=== PATIENT | male | born 1950 | race Caucasian/White ===

== ENCOUNTER → 2018-03-19 11:00 | Outpatient (CLI) | payer BC, MEDICARE, SELFPAY | PROVIDERS: Visit Provider Internal Medicine | DX: G47.33 Obstructive sleep apnea (adult) (pediatric) (principal) | CPT/HCPCS: 95806 ==

== ENCOUNTER 2018-11-20 10:51 | Inpatient (IN) ==
[2018-11-20 11:04] LABS: Basophils % 0.7 % (0.1-2.0); Eosinophils # 0.2 K/mm3 (0.0-0.4); Eosinophils % 3.1 % (0.1-12.0); Hematocrit 46.3 % (42.0-52.0); Hemoglobin 15.2 g/dL (14.1-18.0); Lymphocytes # 1.3 K/mm3 (0.7-4.5); Lymphocytes % 21.8 % (10-50); Mean Corpuscular HGB Conc 32.9 g/dL (31.8-35.4); Mean Corpuscular Hemoglobin 30.9 pg (27.0-31.2); Mean Platelet Volume 7.5 fl (7.4-10.4); Monocytes # 0.3 K/mm3 (0.1-1.0); Monocytes % 5.1 % (1.7-9.3); Neutrophils # 4.2 K/mm3 (1.8-7.8); Neutrophils % 69.3 % (37.0-80.0); Platelet Count 188 K/mm3 (142-424); Red Blood Count 4.93 M/mm3 (4.60-6.20)
--- NOTE | 2018-11-20 11:05 | Emergency Department Note ---
ED Disposition Clinical Impression: Unstable angina, CAD (coronary artery disease), STEMI (ST elevation myocardial infarction) Disposition: Still a Patient Condition on Discharge: Fair Referrals: Provider,Referral, [Primary Care Provider] - - Critical Care Critical Care Time: No Attestation: On , the high probability of a clinically significant, sudden or life threatening deterioration of the following system(s) required my full and direct attention, intervention and personal management. The time I documented below is in addition to time spent performing reported procedures but includes the f ollowing listed in this critical care notation. Medical Decision Making - Freddie Inquiry Pt receiving controlled substance: No Freddie was queried for this patient: No Vital Signs: 11/20/18 10:55 Temperature 98.3 F Temperature Source Oral Pulse Rate [Left Radial] 80 Respiratory Rate 19 Blood Pressure [Right Arm] 177/95 H Blood Pressure Mean [Right Arm] 122 Blood Pressure Source [Right Arm] Automatic Cuff Blood Pressure Position [Right Arm] Sitting 02 Sat by Pulse Oximetry 96 Oxygen Delivery Method Room Air - Lab Data Lab Results 11/20/18 10:55: WBC 6.0, RBC 4.93, Hgb 15.2, Hct 46.3, MCV 94.0, MCH 30.9, MCHC 32.9, RDW 14.0, Plt Count 188, MPV 7.5, Neut % (Auto) 69.3, Lymph % (Auto) 21.8, [place] % (Auto) 5.1, Eos % (Auto) 3.1, Baso % (Auto) 0.7, Neut # (Auto) 4.2, Lymph # (Auto) 1.3, [place] # (Auto) 0.3, Eos # (Auto) 0.2, Baso # (Auto) 0.0 11/20/18 10:55: Sodium 141, Potassium 4.1, Chloride 103, Carbon Dioxide 30, Anion Gap 12.1, BUN 12, Creatinine 0.90, Estimated Creat Clear 101, Estimated GFR 83, Est GFR ( Amer) 101, Glucose 166 H, Calcium 8.8, Troponin I 0.27 H 11/20/18 10:55: D-Dimer 120 11/20/18 10:55: B-Natriuretic Peptide 109 H Result diagrams: 11/20/18 10:55 11/20/18 10:55 Orders (Tests/Meds): ED MEDICATIONS Generic Name Dose Route Start Last Admin Trade Name Fawad PRN Reason Stop Dose Admin Nitroglycerin 0.4 mg 11/20/18 10:53 11/20/18 11:16 Nitrostat 0.4mg Sl Tablet SL 11/21/18 10:53 1 dose Q5MINP PRN Administration Chest Pain Discontinued Medications Generic Name Dose Route Start Last Admin Trade Name Fawad PRN Reason Stop Dose Admin Aspirin 324 mg 11/20/18 10:53 11/20/18 11:16 Aspirin 81mg Chewable Tablet PO 11/20/18 10:54 324 mg ONCE ONE Administration Enoxaparin Sodium 80 mg 11/20/18 11:01 11/20/18 11:16 Lovenox 80mg/0.8ml Syringe SQ 11/20/18 11:02 80 mg ONCE ONE Administration Famotidine 20 mg 11/20/18 11:01 11/20/18 11:16 Pepcid 20mg/2ml Vial IV 11/20/18 11:02 20 mg ONCE ONE Administration Nitroglycerin 0.5 gm 11/20/18 11:02 11/20/18 11:16 Nitroglycerin 1 Inch Oint Udp TD 11/20/18 11:03 0.5 gm ONCE ONE Administration Ticagrelor 180 mg 11/20/18 11:49 Brilinta 90mg Tablet PO 11/20/18 11:50 ONCE ONE ORDERS Category Date Time Status ECG Request by /Nse Stat Y 11/20/18 10:53 Ordered - ECG Data Tracing #1 Normal sinus rhythm 81/min old Q waves in inferior leads I millimeter ST elevation in leads III with reciprocal change in the ST segment of aVL, incomplete right bundle branch block, no acute T wave changes. ECG initial impression date: 11/20/18 ECG initial impression time: 10:40 Medical Decision Narrative: 1140 patient's was positive troponin [address] Chandra and texted him his EKG. The patient prefers to be treated at [facility]. Dr. Carlson called back requesting to call the STEMI cath team. STEMI alert was given and I contacted Dr. Godfrey the on-call medical physician I made him aware of the patient's admission. Chest Pain HPI - General Stated Complaint: chest pain Time Seen by Provider: 11/20/18 10:55 Mode of Arrival: Ambulatory Source of Information: Patient, Medical Record - History of Present Illness HPI narrative: There is old white male with history of coronary artery disease and diabetes. He is status post CABG in 2005. For the past 2 weeks has been experiencing intermittent retrosternal sharp chest pain radiating to the left upper extremity. Patient states that activity helps his pain but the pain intensifies at night when he is resting. Shortness of breath or palpitations. He denies having nausea vomiting or diarrhea. The patient took aspirin but he had no nitroglycerin at home. The patient rated his pain 5/10 at 9 AM and it is 2/10 in the ED. MD complaint: chest pain Onset (ago): week(s) (2 weeks.) Duration: intermittent Activity at onset: during rest Pain location: substernal Severity scale (1-10): 2 Quality: sharp Pain radiation: LUE Relieving factors: movement Exacerbating factors: other (rest. ) Risk Factors for CAD: Hypertension, Diabetes - Related Data Home Medications Medication Instructions Recorded Confirmed alfuzosin ER 10 mg tablet,extended 10 mg PO DAILY tab 01/21/18 05/13/18 release 24 hr aspirin 81 mg chewable tablet 81 mg PO DAILY tab 01/21/18 05/13/18 carvedilol 12.5 mg tablet 12.5 mg PO BID 01/21/18 05/13/18 empagliflozin 25 mg tablet 25 mg PO QAM 01/21/18 05/13/18 fenofibrate 160 mg tablet 160 mg PO DAILY tab 01/21/18 05/13/18 finasteride 5 mg tablet 5 mg PO DAILY tab 01/21/18 05/13/18 hydrochlorothiazide 12.5 mg tablet 12.5 mg PO DAILY tab 01/21/18 05/13/18 gaahgjor-zzl-cgzte acid 0.4 1 tab PO QAM 01/21/18 05/13/18 mg-lycopene 300 mcg-lutein 250 mcg tablet tadalafil 5 mg tablet 5 mg PO DAILY tab 01/21/18 05/13/18 amlodipine 5 mg tablet 5 mg PO DAILY tab 06/22/18 esomeprazole magnesium 20 mg 20 mg PO BID PRN cap 06/22/18 capsule,delayed release levothyroxine 50 mcg capsule 50 mcg PO ONCE 06/22/18 losartan 100 mg tablet 100 mg PO ONCE 06/22/18 metformin 1,000 mg tablet 1,000 mg PO BID 06/22/18 montelukast 10 mg tablet 10 mg PO QPM 06/22/18 pravastatin 20 mg tablet 20 mg PO ONCE 06/22/18 Allergies Allergy/AdvReac Type Severity Reaction Status Date / Time No Known Allergies Allergy Verified 05/13/18 09:54 [facility] History - Hepatitis A Screen Attestation statement:: This patient has been screened for Hepatitis A risk factors. I have reviewed the patient's past medical history: Yes Medical History: Reports:: Coronary Artery Disease, Diabetes Mellitus Type 2, Hyperlipidemia, Hypertension Denies:: Internal Pacemaker Other Surgeries: Yes: Other (CABG). No: Pacemaker - Social History Smoking Status: Former smoker Alcohol Intake: never Alcohol Intake Frequency:: other Family Hx:: Coronary Artery Disease ROS Obtained: Yes All systems reviewed & no additional complaints Physical Exam - General General appearance: alert, in no apparent distress - Head Head exam: atraumatic, normocephalic, normal inspection - Eye Eye exam: Present: normal appearance, PERRL, EOMI. Absent: scleral icterus, nystagmus - ENT ENT exam: Present: normal exam, normal oropharynx, mucous membranes moist, TM's normal bilaterally, normal external ear exam - Neck Neck exam: Present: normal inspection, full ROM, trachea midline. Absent: tenderness, meningismus, lymphadenopathy - Chest Chest inspection: Present: normal inspection, symmetric chest wall rise. Absent: tenderness - Respiratory Respiratory exam: Present: normal lung sounds bilaterally. Absent: respiratory distress - Cardiovascular Cardiovascular exam: Present: regular rate, normal rhythm, normal heart sounds. Absent: JVD - Abdominal Exam Abdominal exam: Present: soft, normal bowel sounds. Absent: distention, tenderness, guarding, rebound, rigidity - Extremities Exam Extremities exam: Present: normal inspection, full ROM, normal capillary refill, other (Strong equal bilateral femoral pulse.. ). Absent: tenderness, pedal edema, joint swelling, calf tenderness - Back Exam Back exam: Present: normal inspection. Absent: tenderness, CVA tenderness (R), CVA tenderness (L), paraspinal tenderness, vertebral tenderness - Neurological Exam Neurological exam: Present: alert, oriented X3, CN II-XII intact, normal gait, motor sensory deficit, reflexes normal - Psychiatric Psychiatric exam: Present: normal affect, normal mood - Skin Skin exam: Present: warm, dry, intact, normal color - Lymphatic Lymphatic Findings: no adenopathy
[2018-11-20 11:19] LABS: Anion Gap 12.1 mEq/L (5-15); Calcium 8.8 mg/dL (8.5-10.1); Potassium 4.1 mmoL/L (3.5-5.1)
--- NOTE | 2018-11-20 14:58 | History & Physical Report ---
*Admission Date: 11/20/18 *Chief complaint: STEMI *History of present illness: History Cesar is a 68-year-old male with history of coronary artery disease and diabetes. He is status post CABG in 2005. For the past 2 weeks has been experiencing intermittent retrosternal sharp chest pain radiating to the left upper extremity. Patient states that activity helps his pain but the pain intensifies at night when he is resting. He complains of shortness of breath and palpitations. He denies having nausea vomiting or diarrhea. The patient took aspirin but he had no nitroglycerin at home prior to presenting to the ER. In the ER he states his pain earlier today was rated 5/10 at 9 AM and it is 2/10 in the ED. cardiology was consulted from the ER. Patient taken emergently to the [facility] where he had 2 stents placed in his venous graft. Admitted to medicine for management overnight [facility] History I have reviewed the patient's past medical history: Yes Medical History: Reports:: Coronary Artery Disease, Diabetes Mellitus Type 2, Hyperlipidemia, Hypertension Denies:: Internal Pacemaker Other Surgeries: Yes: Other (CABG). No: Pacemaker - *Social History Smoking Status: Former smoker Alcohol Intake: never Alcohol Intake Frequency:: other - Psychiatric History Expresses thoughts of harming self/others: None Suicide Plan Description: No Plan *Family Hx:: Coronary Artery Disease Review of Systems - Review of Systems Review of systems:: pertinent systems reviewed and negative unless documented below Meds Home Medications Medication Instructions Recorded Confirmed Type alfuzosin ER 10 mg tablet,extended 10 mg PO DAILY tab 01/21/18 05/13/18 History release 24 hr aspirin 81 mg chewable tablet 81 mg PO DAILY tab 01/21/18 05/13/18 History carvedilol 12.5 mg tablet 12.5 mg PO BID 01/21/18 05/13/18 History empagliflozin 25 mg tablet 25 mg PO QAM 01/21/18 05/13/18 History fenofibrate 160 mg tablet 160 mg PO DAILY tab 01/21/18 05/13/18 History finasteride 5 mg tablet 5 mg PO DAILY tab 01/21/18 05/13/18 History hydrochlorothiazide 12.5 mg tablet 12.5 mg PO DAILY tab 01/21/18 05/13/18 History sxazehcf-fdj-nfsom acid 0.4 1 tab PO QAM 01/21/18 05/13/18 History mg-lycopene 300 mcg-lutein 250 mcg tablet tadalafil 5 mg tablet 5 mg PO DAILY tab 01/21/18 05/13/18 History amlodipine 5 mg tablet 5 mg PO DAILY tab 06/22/18 History esomeprazole magnesium 20 mg 20 mg PO BID PRN cap 06/22/18 History capsule,delayed release levothyroxine 50 mcg capsule 50 mcg PO ONCE 06/22/18 History losartan 100 mg tablet 100 mg PO ONCE 06/22/18 History metformin 1,000 mg tablet 1,000 mg PO BID 06/22/18 History montelukast 10 mg tablet 10 mg PO QPM 06/22/18 History pravastatin 20 mg tablet 20 mg PO ONCE 06/22/18 History Allergies Allergy/AdvReac Type Severity Reaction Status Date / Time No Known Allergies Allergy Verified 05/13/18 09:54 Exam Vital signs and Labs for Last 24 Hours: Temp Pulse Resp BP Pulse Ox 98.0 F 68 17 163/95 H 97 11/20/18 14:48 11/20/18 14:48 11/20/18 14:48 11/20/18 14:48 11/20/18 14:48 Laboratory Results - last 24 hr 11/20/18 10:55: WBC 6.0, RBC 4.93, Hgb 15.2, Hct 46.3, MCV 94.0, MCH 30.9, MCHC 32.9, RDW 14.0, Plt Count 188, MPV 7.5, Neut % (Auto) 69.3, Lymph % (Auto) 21.8, [place] % (Auto) 5.1, Eos % (Auto) 3.1, Baso % (Auto) 0.7, Neut # (Auto) 4.2, Lymph # (Auto) 1.3, [place] # (Auto) 0.3, Eos # (Auto) 0.2, Baso # (Auto) 0.0 11/20/18 10:55: Sodium 141, Potassium 4.1, Chloride 103, Carbon Dioxide 30, Anion Gap 12.1, BUN 12, Creatinine 0.90, Estimated Creat Clear 101, Estimated GFR 83, Est GFR ( Amer) 101, Glucose 166 H, Calcium 8.8, Troponin I 0.27 H 11/20/18 10:55: D-Dimer 120 11/20/18 10:55: B-Natriuretic Peptide 109 H I & O for Last 24 hours: Intake & Output 11/17/18 11/18/18 11/19/18 11/20/18 23:59 23:59 23:59 23:59 Weight 106.651 kg - *Routine HEENT Exam Head: Present: normocephalic, atraumatic Eye: Present: EOMI, PERRL ENT: Present: mucous membranes moist - *Routine Neck Exam Present: supple. Absent: JVD - *Routine Respiratory Exam Present: CTA bilaterally. Absent: prolonged expiratory phase, wheezes, crackles - *Routine Cardiovascular Exam Present: RRR, Normal S1, Normal S2. Absent: murmur - *Routine Abdominal Exam Present: soft, normoactive bowel sounds - *Routine Rectal Exam Patient deferred: visual exam - *Routine Exam Patient deferred: penile exam - *Routine Extremities Exam Absent: cyanosis, clubbing, edema Comments: Insertion site in right inguinal region with bandage, clean dry and intact - *Routine Skin Exam Present: intact. Absent: cyanosis, erythema - *Routine Neurological Exam Present: alert, oriented X3. Absent: altered mental status Assessment and Plan (1) STEMI (ST elevation myocardial infarction) Current visit: Yes Status: Acute Qualifiers: Involved coronary artery: right coronary artery Qualified Code(s): I21.11 - ST elevation (STEMI) myocardial infarction involving right coronary artery Category: Medical Code(s): I21.3 - ST elevation (STEMI) myocardial infarction of unspecified site Status post stent placement in the [facility]. Continue goal-directed therapy with ticagrelor, beta-kelley, statin, ARB, aspirin (2) Unstable angina Current visit: Yes Status: Resolved Category: Medical Code(s): I20.0 - Unstable angina (3) CAD (coronary artery disease) Current visit: Yes Status: Chronic Qualifiers: Coronary Disease-Associated Artery/Lesion type: [place] artery Associated angina: with unstable angina Category: Medical Code(s): I25.10 - Atherosclerotic heart disease of [place] coronary artery without angina pectoris (4) Diabetes mellitus Current visit: No Status: Chronic Qualifiers: Diabetes mellitus type: type 2 Diabetes mellitus [employer] insulin use: without [employer] use Diabetes mellitus complication status: without complication Qualified Code(s): E11.9 - Type 2 diabetes mellitus without complications Category: Medical Code(s): E11.9 - Type 2 diabetes mellitus without complications Sliding scale insulin (5) HLD (hyperlipidemia) Current visit: No Status: Chronic Qualifiers: Hyperlipidemia type: mixed hyperlipidemia Qualified Code(s): E78.2 - Mixed hyperlipidemia Category: Medical Code(s): E78.5 - Hyperlipidemia, unspecified (6) HTN (hypertension) Current visit: No Status: Chronic Qualifiers: Hypertension type: essential hypertension Qualified Code(s): I10 - Essential (primary) hypertension Category: Medical Code(s): I10 - Essential (primary) hypertension Continue home regimen (7) Hypothyroidism Current visit: No Status: Chronic Qualifiers: Hypothyroidism type: acquired Qualified Code(s): E03.9 - Hypothyroidism, unspecified Category: Medical Code(s): E03.9 - Hypothyroidism, unspecified Continue home levothyroxine - Assessment and plan all Dx Assessment and Plan for all problems:: Continue to monitor overnight on telemetry. If remains stable, plan for discharge home tomorrow
--- NOTE | 2018-11-20 23:23 | Discharge Summary ---
General - General Admission date:: 11/20/18 Discharge date: 11/21/18 HPI HPI: Jackie Guerrero is a 68-year-old male with history of coronary artery disease and diabetes. He is status post CABG in 2005. For the past 2 weeks has been experiencing intermittent retrosternal sharp chest pain radiating to the left upper extremity. Patient states that activity helps his pain but the pain intensifies at night when he is resting. He complains of shortness of breath and palpitations. He denies having nausea vomiting or diarrhea. The patient took aspirin but he had no nitroglycerin at home prior to presenting to the ER. In the ER he states his pain earlier today was rated 5/10 at 9 AM and it is 2/10 in the ED. cardiology was consulted from the ER. Patient taken emergently to the [facility] where he had 2 stents placed in his venous graft. Admitted to medicine for management overnight Hospital Course Hospital Course: Patient did directly from [facility] for unstable angina. Had 2 stents placed in coronary artery graft. Procedure well with no further events. Chest pain resolved. Tolerated p.o. intake. No bleeding at trocar insertion site. Tolerating goal-directed therapy. Stable for discharge home with plan to follow-up with cardiology. Objective Vital signs: Temp Pulse Resp BP Pulse Ox 98 F 65 12 127/72 98 11/20/18 20:55 11/20/18 22:00 11/20/18 22:00 11/20/18 22:00 11/20/18 22:00 Results Labs on day of discharge: Labs from last 24 hours 11/20/18 11/20/18 11/20/18 20:34 17:16 12:56 WBC RBC Hgb Hct MCV MCH MCHC RDW Plt Count MPV Neut % (Auto) Lymph % (Auto) [place] % (Auto) Eos % (Auto) Baso % (Auto) Neut # (Auto) Lymph # (Auto) [place] # (Auto) Eos # (Auto) Baso # (Auto) Activated Clotting Time > 400 H* D-Dimer Sodium Potassium Chloride Carbon Dioxide Anion Gap BUN Creatinine Estimated Creat Clear Estimated GFR Est GFR ( Amer) Glucose POC Glucose 129 H 177 H Calcium Troponin I B-Natriuretic Peptide 11/20/18 11/20/18 11/20/18 10:55 10:55 10:55 WBC RBC Hgb Hct MCV MCH MCHC RDW Plt Count MPV Neut % (Auto) Lymph % (Auto) [place] % (Auto) Eos % (Auto) Baso % (Auto) Neut # (Auto) Lymph # (Auto) [place] # (Auto) Eos # (Auto) Baso # (Auto) Activated Clotting Time D-Dimer 120 Sodium 141 Potassium 4.1 Chloride 103 Carbon Dioxide 30 Anion Gap 12.1 BUN 12 Creatinine 0.90 Estimated Creat Clear 101 Estimated GFR 83 Est GFR ( Amer) 101 Glucose 166 H POC Glucose Calcium 8.8 Troponin I 0.27 H B-Natriuretic Peptide 109 H 11/20/18 10:55 WBC 6.0 RBC 4.93 Hgb 15.2 Hct 46.3 MCV 94.0 MCH 30.9 MCHC 32.9 RDW 14.0 Plt Count 188 MPV 7.5 Neut % (Auto) 69.3 Lymph % (Auto) 21.8 [place] % (Auto) 5.1 Eos % (Auto) 3.1 Baso % (Auto) 0.7 Neut # (Auto) 4.2 Lymph # (Auto) 1.3 [place] # (Auto) 0.3 Eos # (Auto) 0.2 Baso # (Auto) 0.0 Activated Clotting Time D-Dimer Sodium Potassium Chloride Carbon Dioxide Anion Gap BUN Creatinine Estimated Creat Clear Estimated GFR Est GFR ( Amer) Glucose POC Glucose Calcium Troponin I B-Natriuretic Peptide DS: Diagnosis - Discharge Diagnosis (1) STEMI (ST elevation myocardial infarction) Status: Acute (2) Unstable angina Status: Resolved (3) CAD (coronary artery disease) Status: Chronic (4) Diabetes mellitus Status: Chronic (5) HLD (hyperlipidemia) Status: Chronic (6) HTN (hypertension) Status: Chronic (7) Hypothyroidism Status: Chronic Discharge Plan - Patient Discharge Instructions Patient Instructions: Heart Attack, DI for Cardiac Catheterization, DI for Surgical Site Infection - Follow up Plan Follow up with: Dmitriy Chandra MD [Staff Physician] - ProviderAlison MD [Primary Care Provider] - Disposition: Home, Self-Prison Medications: Home Medications Medication Instructions Recorded Confirmed Type alfuzosin ER 10 mg tablet,extended 10 mg PO DAILY tab 01/21/18 11/24/18 History release 24 hr aspirin 81 mg chewable tablet 81 mg PO DAILY tab 01/21/18 11/24/18 History carvedilol 12.5 mg tablet 12.5 mg PO BID 01/21/18 11/24/18 History empagliflozin 25 mg tablet 25 mg PO QAM 01/21/18 11/24/18 History fenofibrate 160 mg tablet 160 mg PO DAILY tab 01/21/18 11/24/18 History finasteride 5 mg tablet 5 mg PO DAILY tab 01/21/18 11/24/18 History hydrochlorothiazide 12.5 mg tablet 12.5 mg PO DAILY tab 01/21/18 11/24/18 History ulntudey-gda-chzaj acid 0.4 1 tab PO QAM 01/21/18 11/24/18 History mg-lycopene 300 mcg-lutein 250 mcg tablet esomeprazole magnesium 20 mg 20 mg PO BID PRN cap 06/22/18 11/24/18 History capsule,delayed release levothyroxine 50 mcg capsule 50 mcg PO ONCE 06/22/18 11/24/18 History losartan 100 mg tablet 100 mg PO ONCE 06/22/18 11/24/18 History metformin 1,000 mg tablet 1,000 mg PO BID 06/22/18 11/24/18 History montelukast 10 mg tablet 10 mg PO QPM 06/22/18 11/24/18 History pravastatin 20 mg tablet 20 mg PO ONCE 06/22/18 11/24/18 History RX: Ticagrelor [Brilinta 90mg 90 mg PO BID #60 tab 11/21/18 11/24/18 Rx Tablet] amlodipine 5 mg tablet 5 mg PO BID tab 11/24/18 11/24/18 History Prescriptions/Medication Reconciliation: New RX: Ticagrelor [Brilinta 90mg Tablet] 90 mg PO BID #60 tab Continue alfuzosin ER 10 mg tablet,extended release 24 hr 10 mg PO DAILY tab aspirin 81 mg chewable tablet 81 mg PO DAILY tab sflvgrlu-tei-kaxwn acid 0.4 mg-lycopene 300 mcg-lutein 250 mcg tablet 1 tab PO QAM carvedilol 12.5 mg tablet 12.5 mg PO BID finasteride 5 mg tablet 5 mg PO DAILY tab hydrochlorothiazide 12.5 mg tablet 12.5 mg PO DAILY tab empagliflozin 25 mg tablet 25 mg PO QAM metformin 1,000 mg tablet 1,000 mg PO BID pravastatin 20 mg tablet 20 mg PO ONCE losartan 100 mg tablet 100 mg PO ONCE montelukast 10 mg tablet 10 mg PO QPM levothyroxine 50 mcg capsule 50 mcg PO ONCE fenofibrate 160 mg tablet 160 mg PO DAILY tab esomeprazole magnesium 20 mg capsule,delayed release 20 mg PO BID PRN cap PRN Reason: gerd No Action amlodipine 5 mg tablet 5 mg PO BID tab
[2018-11-21 06:18] LABS: Basophils % 0.5 % (0.1-2.0); Eosinophils # 0.2 K/mm3 (0.0-0.4); Eosinophils % 2.7 % (0.1-12.0); Hematocrit 43.8 % (42.0-52.0); Hemoglobin 14.3 g/dL (14.1-18.0); Lymphocytes # 1.3 K/mm3 (0.7-4.5); Lymphocytes % 16.5 % (10-50); Mean Corpuscular HGB Conc 32.7 g/dL (31.8-35.4); Mean Corpuscular Hemoglobin 30.6 pg (27.0-31.2); Mean Corpuscular Volume 93.6 fl (80-94); Mean Platelet Volume 7.2 fl (7.4-10.4); Monocytes # 0.5 K/mm3 (0.1-1.0); Monocytes % 6.5 % (1.7-9.3); Neutrophils # 5.7 K/mm3 (1.8-7.8); Neutrophils % 73.8 % (37.0-80.0); Platelet Count 190 K/mm3 (142-424); Red Blood Count 4.68 M/mm3 (4.60-6.20); Red Cell Distribution Width 14.2 % (11.5-17.5); White Blood Count 7.7 K/mm3 (4.8-10.8)
[2018-11-21 06:39] LABS: Anion Gap 13.9 mEq/L (5-15); Calcium 8.5 mg/dL (8.5-10.1); Potassium 3.9 mmoL/L (3.5-5.1)
--- NOTE | 2018-11-21 15:15 | Pharmacy Consult Notes ---
[facility] Pharmacy VTE Monitoring - Patient Demographics Admission date: 11/20/18 Report Date: 11/21/18 Time: 15:14 Allergies/Adverse Reactions: Patient Allergies No Known Allergies Allergy (Verified 05/13/18 09:54) Height: 1.78 m Weight: 101.775 kg Patient Problems: Current Active Problems (This Medical Record has been edited. Action required.) STEMI (ST elevation myocardial infarction) (Acute) CAD (coronary artery disease) (Chronic) - VTE Risk Labs: VTE Related Lab Results Hgb 14.3 g/dL (14.1-18.0) 11/21/18 05:45 Hct 43.8 % (42.0-52.0) 11/21/18 05:45 Plt Count 190 K/mm3 (142-424) 11/21/18 05:45 BUN 11 mg/dL (7-18) 11/21/18 05:45 Creatinine 0.89 mg/dL (0.70-1.30) 11/21/18 05:45 Estimated Creat Clear 99 mL/min (50-200) 11/21/18 05:45 Was VTE Risk Assessment Performed: No VTE Score: 2 VTE Risk Level: Low Risk - Prophylaxis VTE Prophylaxis Ordered?: Yes Types of VTE Prophylaxis: TEDS Knee High Location of Applied Device: Bilateral Lower Extremeties
== END 2018-11-21 16:20 | disposition home or self-care (01) | DRG 247 ==
LOC: ER 10:51 → CATHLAB 12:50 → 2ND 14:22
PROVIDERS: ADMIT Internal Medicine Adolescent Medicine; ATTEND Internal Medicine Adolescent Medicine
CPT/HCPCS: 36415; 71020; 71046; 80048; 82962; 83880; 84484; 85025; 85347; 85378; 92941; 93005; 93459; 96372; 96374; 96375; 99152; 99153; 99282; 99284; C1725; C1760; C1769; C1876; C1894; C9606; J1644; Q9967

== ENCOUNTER → 2018-11-24 10:26 | Outpatient (CLI) | payer BC, SELFPAY | PROVIDERS: PCP Family Medicine; Visit Provider Urology | DX: R10.31 Right lower quadrant pain (principal) | CPT/HCPCS: 93926 ==

== ENCOUNTER 2018-12-10 09:21 | Outpatient (RCR) | payer BC, SELFPAY | END 2019-02-16 08:55 | disposition home or self-care (01) | LOC: PT 09:21 | PROVIDERS: Visit Provider Internal Medicine | DX: Z95.5 Presence of coronary angioplasty implant and graft (principal) ==

== ENCOUNTER → 2019-02-21 10:16 | Outpatient (CLI) | payer BC, SELFPAY ==
[2019-02-21 12:00] LABS: Free T4 (Free Thyroxine) 0.84 ng/dl (0.76-1.46); Thyroid Stimulating Hormone 1.64 uIU/ml (0.358-3.740)
== END ==
PROVIDERS: Visit Provider Urology
DX: E05.90 Thyrotoxicosis, unspecified without thyrotoxic crisis or storm (principal)
CPT/HCPCS: 36415; 84439; 84443

== ENCOUNTER → 2021-09-26 11:59 | Outpatient (CLI) | payer BC, SELFPAY ==
--- NOTE | 2021-09-26 12:00 | CA_ITS ---
APPROVED REPORT EXAM: Comprehensive 2D, Doppler, and color-flow Echocardiogram Associate Civil Engineer: Viviana Siddiqui CRT Ht: 5 ft 10 in Wt: 231lbs BSA: 2.22 BP: 180/90 mmHg Indications: Shortness of Breath, Diabetes, Hyperlipidemia, Hypertension/HDD 2D Dimensions LVOT 1.76 cm (M/F) 1.5-2.5 LA Volume 26.90 mL LA Volume Index 12.10 mL/m2 (M/F) 16-34 M-Mode Dimensions RVDd 3.69 cm (0.9-2.6) LA Diam 3.57 cm (1.9-4.0) LVDd 3.90 cm (3.5-5.7) Ao Diam 4.42 cm (2.0-3.7) LVDs 2.15 cm (3.5-5.7) IVSd 1.86 cm (0.6-1.1) PWd 0.54 cm (0.6-1.1) EF (Teich) 76.80% FS 44.90% EDV (Teich) 65.90 mL ESV (Teich) 15.30 mL LV Diastology E Decel Time 187.00 (160-240 msec) E/A Ratio 0.54 MED E' 5.60 (< 7 cm/sec) MED A' 10.70 cm/s E'/MED E' Ratio 13.14 (>14) LAT E' 7.30 (<10 cm/sec) LAT A' 10.50 cm/s E/LAT E' Ratio 10.08 (>14) Aortic Valve AO Peak GR. 4.80 mmHg Mitral Valve MV E Max Rom. 74.00 (40-130 cm/s) MV A Velocity 137.00 (40-130 cm/s) E/A Ratio 0.54 MV Decel. Time 187.00 (160-240 ms) MV PHT 55.00 ms Pulmonary Valve PV Peak Velocity 133.00 (50-150 cm/s) Tricuspid Valve TR P. Velocity 155.00 cm/s RAP Estimate 10.00 mmHg RVSP 19.60 mmHg Left Ventricle Left atrium is mildly enlarged, left ventricle is normal size, mild concentric left ventricular hypertrophy, visually estimated ejection fraction 55% with no regional wall motion abnormality, grade 1 diastolic dysfunction seen without tissue Doppler evidence of raise left atrial pressure. Right Ventricle Right atrium and right ventricle mildly enlarged with normal contractility. Aortic Valve Aortic valve is minimally thickened and fibrosed, there is no aortic stenosis or aortic insufficiency. Mitral Valve Mitral valve grossly normal, there is trace mitral regurgitation. Tricuspid Valve Tricuspid grossly normal, there is trace tricuspid regurgitation, tricuspid regurgitation jet velocity is inadequate for calculation of the right ventricular systolic pressure. Pulmonic Valve Pulmonic valve is poorly visualized. Great Vessels Aortic root is normal size. Inferior vena cava is normal size with normal inspiratory collapse. Pericardium No significant pericardial effusion noted. Conclusion 1. Mild biatrial enlargement, normal left ventricular size, mild concentric left ventricular hypertrophy, visually estimated ejection fraction 55% with no regional wall motion abnormality, grade 1 diastolic dysfunction seen without tissue Doppler evidence of raise left atrial pressure. 2. Mildly enlarged right ventricle with normal contractility. 3. Trace mitral and tricuspid regurgitation. 4. No significant pericardial effusion noted 5. Inferior vena cava is normal size with normal inspiratory collapse. Electronically signed by : Bradford Tomlin MD 09/27/2021 13:49:00
== END ==
PROVIDERS: PCP Family Medicine; Visit Provider Urology
DX: I25.10 Atherosclerotic heart disease of native coronary artery without angina pectoris (principal); E78.2 Mixed hyperlipidemia; I10 Essential (primary) hypertension
CPT/HCPCS: 93306

== ENCOUNTER 2022-02-11 08:34 | Emergency (ER) | payer BC, SELFPAY ==
[2022-02-11] VITALS (10 sets, daily range): BP systolic 157–185; BP diastolic 96–110; PULSE 66–77; RESP 13–18; TEMP 36.7; O2SAT 97; BMI 31.5
--- NOTE | 2022-02-11 08:34 | ECG_ITS ---
APPROVED REPORT Exam: Resting ECG HR:81 bpm ECG Measurements Heart Rate 81 AXES KS 155 P 36 QRSd 153 QRS -22 QT 396 T 0 QTc 433 Conclusion SINUS RHYTHM RIGHT BUNDLE BRANCH BLOCK [120+ ms QRS DURATION, UPRIGHT V1, 40+ ms S IN I/aVL/V4/V5/V6] INFERIOR MYOCARDIAL INFARCTION , PROBABLY OLD [40+ ms Q WAVE AND/OR ST/T ABNORMALITY IN II/aVF] ABNORMAL ECG UNCONFIRMED REPORT Electronically signed by : Christopher James MD 02/12/2022 18:14:20
--- NOTE | 2022-02-11 08:44 | XR_ITS ---
FINAL REPORT CLINICAL HISTORY: chest pain; h/o open heart surgery 2009; non-smoker COMPARISON: 12/07/2018 FINDINGS: A single view of the chest was obtained. There is mild cardiomegaly. The patient is status post median sternotomy. Mild chronic changes are seen in both lungs. There is no acute pulmonary abnormality. There is no pleural effusion. There is no pneumothorax. There is no acute osseous abnormality. IMPRESSION: No acute cardiopulmonary process. Reviewed, Interpreted and Dictated by Marlon Noyola MD Transcribed by Maddi Elder Authenticated by Marlon Noyola MD on 02/11/2022 09:57:37 AM [facility]
--- NOTE | 2022-02-11 08:44 | PC.NURSE ---
doc at bedside
[2022-02-11 08:56] LABS: Basophils # 0.1 K/mm3 (0-0.2); Basophils % 0.9 % (0.1-2.0); Eosinophils # 0.1 K/mm3 (0.0-0.4); Eosinophils % 0.9 % (0.1-12.0); Hematocrit 51.5 % (42.0-52.0); Hemoglobin 17.1 g/dL (14.1-18.0); Lymphocytes # 1.2 K/mm3 (0.7-4.5); Lymphocytes % 20.3 % (10-50); Mean Corpuscular HGB Conc 33.2 g/dL (31.8-35.4); Mean Corpuscular Volume 93.5 fl (80-94); Mean Platelet Volume 8.2 fl (7.4-10.4); Monocytes # 0.4 K/mm3 (0.1-1.0); Monocytes % 6.8 % (1.7-9.3); Neutrophils # 4.3 K/mm3 (1.8-7.8); Platelet Count 241 K/mm3 (142-424); Red Blood Count 5.51 M/mm3 (4.60-6.20); Red Cell Distribution Width 14.1 % (11.5-17.5)
--- NOTE | 2022-02-11 08:58 | HMH.EDCP ---
ED Disposition Clinical Impression: Chest pain Qualifiers: Chest pain type: unspecified Qualified Code(s): R07.9 - Chest pain, unspecified Disposition: Home, Self-Care Condition on Discharge: Good Additional Instructions: Please call your tennis coach, make an appointment sooner. Recommend getting a stress test. Return to the emergency department for any new or concerning symptoms. Prescriptions: Famotidine [Pepcid 20mg Tablet] 20 mg PO DAILY 30 Days #30 tab Transmission Status: Received by [id number] Referrals: Provider,Referral, [Referring] - - Critical Care Critical Care Time: No Attestation: On 02/11/22, the high probability of a clinically significant, sudden or life threatening deterioration of the following system(s) required my full and direct attention, intervention and personal management. The time I documented below is in addition to time spent performing reported procedures but includes the following listed in this critical care notation. Medical Decision Making - Medical Records Medical records reviewed: Yes: I reviewed the patient's medical records. - Freddie Inquiry Pt receiving controlled substance: No Freddie was queried for this patient: No Vital Signs: 02/11/22 08:39 02/11/22 09:00 02/11/22 09:30 Temperature 98.1 F Temperature Source Oral Pulse Rate Pulse Rate [Right Radial] 77 Respiratory Rate 18 Blood Pressure 169/103 H 176/106 H Blood Pressure [Right Arm] 163/105 H Blood Pressure Mean 125 129 Blood Pressure Mean [Right Arm] 124 Blood Pressure Source Blood Pressure Source [Right Arm] Automatic Cuff Blood Pressure Position Blood Pressure Position [Right Arm] Sitting 02 Sat by Pulse Oximetry 97 Oxygen Delivery Method Room Air 02/11/22 10:00 02/11/22 10:30 02/11/22 11:01 Temperature Temperature Source Pulse Rate Pulse Rate [Right Radial] Respiratory Rate Blood Pressure 184/96 H 173/110 H 185/100 H Blood Pressure [Right Arm] Blood Pressure Mean 125 131 128 Blood Pressure Mean [Right Arm] Blood Pressure Source Blood Pressure Source [Right Arm] Blood Pressure Position Blood Pressure Position [Right Arm] 02 Sat by Pulse Oximetry Oxygen Delivery Method 02/11/22 11:31 02/11/22 12:01 02/11/22 12:31 Temperature Temperature Source Pulse Rate 66 66 Pulse Rate [Right Radial] Respiratory Rate 13 13 Blood Pressure 174/97 H 157/102 H 175/98 H Blood Pressure [Right Arm] Blood Pressure Mean 122 120 123 Blood Pressure Mean [Right Arm] Blood Pressure Source Blood Pressure Source [Right Arm] Blood Pressure Position Blood Pressure Position [Right Arm] 02 Sat by Pulse Oximetry 97 Oxygen Delivery Method 02/11/22 13:07 Temperature 98.1 F Temperature Source Pulse Rate 66 Pulse Rate [Right Radial] Respiratory Rate 13 Blood Pressure 175/98 H Blood Pressure [Right Arm] Blood Pressure Mean Blood Pressure Mean [Right Arm] Blood Pressure Source Automatic Cuff Blood Pressure Source [Right Arm] Blood Pressure Position Sitting Blood Pressure Position [Right Arm] 02 Sat by Pulse Oximetry Oxygen Delivery Method Room Air - Lab Data Lab results reviewed: Yes: I reviewed the patient's lab results. Lab Results 02/11/22 08:42: WBC 6.0, RBC 5.51, Hgb 17.1, Hct 51.5, MCV 93.5, MCH 31.0, MCHC 33.2, RDW 14.1, Plt Count 241, MPV 8.2, Neut % (Auto) 71.0, Lymph % (Auto) 20.3, [place] % (Auto) 6.8, Eos % (Auto) 0.9, Baso % (Auto) 0.9, Neut # (Auto) 4.3, Lymph # (Auto) 1.2, [place] # (Auto) 0.4, Eos # (Auto) 0.1, Baso # (Auto) 0.1 02/11/22 08:42: Sodium 137, Potassium 4.0, Chloride 103, Carbon Dioxide 27, Anion Gap 11.0, BUN 16, Creatinine 0.80, Estimated Creat Clear 93, Estimated GFR 95, Est GFR ( Amer) 115, Glucose 231 H, Calcium 9.0, Troponin I < 0.01 02/11/22 08:42: Lipase 90 02/11/22 11:30: Troponin I < 0.01 Result diagrams: 02/11/22 08:42 02/11/22 08:42 Or
[2022-02-11 09:07] LABS: Lipase 90 U/L (23-300)
[2022-02-11 09:08] LABS: Blood Urea Nitrogen 16 mg/dl (9-20); Carbon Dioxide 27 mmol/L (22.0-30.0); Chloride 103 mmol/L (98-107); Creatinine Clearance Estimated 93 mL/min (50-200); Estimated Glomerular Filt Rate 95 ml/min (>60); GFR (African American) 115 ML/MIN (>60); Glucose 231 mg/dl (74-100); Sodium 137 mmol/L (136-145)
[2022-02-11 09:23] LABS: Troponin I < 0.01 ng/ml (0.00-0.034)
[2022-02-11 12:08] LABS: Troponin I < 0.01 ng/ml (0.00-0.034)
== END 2022-02-11 13:08 | disposition home or self-care (01) ==
PROVIDERS: Emergency Provider Emergency Medicine; PCP Family Medicine
DX: R07.9 Chest pain, unspecified (principal); E11.65 Type 2 diabetes mellitus with hyperglycemia; I10 Essential (primary) hypertension; E78.5 Hyperlipidemia, unspecified; Z96.642 Presence of left artificial hip joint; Z79.899 Other long term (current) drug therapy
CPT/HCPCS: 71045; 80048; 83690; 84484; 85025; 93005; 99283

== ENCOUNTER → 2022-02-18 08:28 | Outpatient (CLI) | payer BC, SELFPAY ==
--- NOTE | 2022-02-18 08:33 | NM_ITS ---
FINAL REPORT CLINICAL HISTORY: LT HIP PAIN 8:50AM 26.3 MCI TC MDP LT HIP XRAY ALSO DONE TODAY COMPARISON: 02/18/2022 FINDINGS: Blood flow, blood pool, and delayed images were performed formed of the pelvis and hip after the intravenous injection of 26.3 mCi TC 99 MDP. On the blood flow images, there is normal blood flow of the pelvis and hip. No abnormal blood pool is identified. On the delayed images, there is a photopenic area in the left hip consistent with arthroplasty. There is increased tracer activity in the region of the lesser trochanter and adjacent to the femoral component of the arthroplasty. While this may be reactive, loosening is not excluded. IMPRESSION: Increased tracer activity of the lesser trochanter and adjacent to the femoral component of the arthroplasty, while this may be reactive, loosening is not excluded. Reviewed, Interpreted and Dictated by Adi Shafer III, MD Transcribed by Katie Rain Authenticated by Adi Shafer III, MD on 02/18/2022 03:41:[address] [facility]
--- NOTE | 2022-02-18 12:35 | XR_ITS ---
FINAL REPORT CLINICAL HISTORY: LT HIP PAIN, BONE SCAN ALSO DONE TODAY FINDINGS: LEFT HIP Two views of the left hip including an AP pelvis demonstrate no acute fracture or dislocation. There are postoperative changes from left hip arthroplasty. No bony abnormality is identified. There is no evidence of complication. There are moderate degenerative changes in the right hip. The visualized bony structures are well aligned. No soft tissue abnormality is seen. IMPRESSION: Postoperative changes from left hip arthroplasty. Moderate degenerative changes of the right hip. Reviewed, Interpreted and Dictated by Adi Shafer III, MD Transcribed by Yennifer Perez Authenticated by Adi Shafer III, MD on 02/18/2022 02:06:52 PM [facility]
== END ==
PROVIDERS: PCP Family Medicine; Visit Provider Orthopaedic Surgery Adult Reconstructive Orthopaedic Surgery
DX: M25.551 Pain in right hip (principal)
CPT/HCPCS: 73502; 78315; A9503

== ENCOUNTER 2022-02-18 13:09 | Emergency (ER) | payer BC, SELFPAY ==
[2022-02-18 16:33] VITALS: BP 146/91; PULSE 81; RESP 19; TEMP 36.8; O2SAT 98; BMI 42.7
--- NOTE | 2022-02-18 16:36 | HMH.EDUTC ---
[facility] Disposition Clinical Impression: Chronic headaches Qualifiers: Headache type: unspecified Intractability: not intractable Qualified Code(s): R51.9 - Headache, unspecified Disposition: Home, Self-Care Condition on Discharge: Good Instructions: DI for Chronic Pain -- Adult Additional Instructions: Go home lay down and try to sleep off remainder of headache Return if needed Straight to ER if any life threatening symptoms FOllow up with Family Doctor if no improvement or any worsening of symptoms Referrals: Christopher Molina MD [Primary Care Provider] - As needed Time of Disposition: 17:04 Medical Decision Making - Freddie Inquiry Pt receiving controlled substance: No Freddie was queried for this patient: No Vital Signs: 02/18/22 16:33 Temperature 98.2 F Temperature Source Oral Pulse Rate [Left] 81 Respiratory Rate 19 Blood Pressure [Right Arm] 146/91 H Blood Pressure Mean [Right Arm] 109 02 Sat by Pulse Oximetry 98 Orders (Tests/Meds): ED MEDICATIONS Discontinued Medications Generic Name Dose Route Start Last Admin Trade Name Fawad PRN Reason Stop Dose Admin Ketorolac Tromethamine 60 mg 02/18/22 16:42 02/18/22 16:52 Ketorolac 60mg/2ml Vial IM 02/18/22 16:43 60 mg ONCE ONE Administration Methylprednisolone Sodium Succinate 125 mg 02/18/22 16:42 02/18/22 16:52 Methylprednisolone Sod Succ 125mg Vial IM 02/18/22 16:43 125 mg ONCE ONE Administration Medical Decision Narrative: Patient states that he is driving and does not have anyone to come pick him up Discussed with pharmacy and will give Toradol and SoluMedrol instead of Migraine [place] since 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 by RN): pt c/o a CUELLAR. pt states he has been having it on and off 3 mo. pt has a hx of CUELLAR and states this feels the same. HEENT Symptoms (Recalled from RN notes): Yes Resp Symptoms (Recalled from RN notes): No Skin Symptoms (Recalled from RN notes): No MS Symptoms (Recalled from RN notes): No Functional Status (Recalled from RN notes): wnl - History of Present Illness Provider Complaint: Patient states that he has been having migraine on and off for about 3 mth States that this is like other migraines he has had in the past State that last time he had one like this he came in and got some shots and it went away So today when he was still having it he came in to get something to help it go away - Related Data Home Medications Medication Instructions Recorded Confirmed alfuzosin 10 mg tablet,extended 10 mg PO DAILY tab 01/21/18 09/04/21 release 24 hr aspirin 81 mg chewable tablet 81 mg PO DAILY tab 01/21/18 09/04/21 fenofibrate 160 mg tablet 160 mg PO DAILY tab 01/21/18 09/04/21 finasteride 5 mg tablet 5 mg PO DAILY tab 01/21/18 09/04/21 metformin 1,000 mg tablet 1,000 mg PO BID 06/22/18 09/04/21 montelukast 10 mg tablet 10 mg PO QPM 06/22/18 09/04/21 cholecalciferol (vitamin D3) 125 5,000 unit PO DAILY 06/08/19 09/04/21 mcg (5,000 unit) capsule coenzyme Q10 10 mg capsule 10 mg PO DAILY cap 06/08/19 09/04/21 krill 500 mg-omega 3 115 mg-dha 30 2 cap PO DAILY cap 06/08/19 09/04/21 mg-epa 64 [id number] capsule losartan 100 mg tablet 100 mg PO DAILY tab 06/08/19 09/04/21 empagliflozin 25 mg tablet 25 mg PO DAILY tab 02/27/21 09/04/21 pravastatin 20 mg tablet 40 mg PO DAILY tab 02/27/21 09/04/21 Previous Rx's Medication Instructions Recorded tadalafil 5 mg tablet 5 mg PO DAILY PRN #30 tab 06/25/20 omeprazole 40 mg capsule,delayed 40 mg PO DAILY #90 cap 05/02
[2022-02-18 17:14] VITALS: BP 146/91; PULSE 81; RESP 19; TEMP 36.8
== END 2022-02-18 17:16 | disposition home or self-care (01) ==
PROVIDERS: Emergency Provider Nurse Practitioner; PCP Family Medicine
DX: G43.909 Migraine, unspecified, not intractable, without status migrainosus (principal); E11.9 Type 2 diabetes mellitus without complications; I25.10 Atherosclerotic heart disease of native coronary artery without angina pectoris; E78.5 Hyperlipidemia, unspecified; I10 Essential (primary) hypertension; Z96.642 Presence of left artificial hip joint; Z79.899 Other long term (current) drug therapy
CPT/HCPCS: 96372; 99213; G0463

== ENCOUNTER → 2022-03-17 05:43 | Outpatient (CLI) | payer BC, SELFPAY ==
--- NOTE | 2022-03-17 | CA_ITS ---
APPROVED REPORT Exam: Pharmacologic Technologist: Wendy Romero, Ht: 5 ft 11 in Wt: 73 lbs BSA: 1.37 m2 HR: 59 bpm BP: 178/95 mmHg Medical History Medications: Omeprazole,,,,, Aspirin,,,,, Metformin,,,,, Vitamin D3,,,,, Losartan,,,,, Carvedilol,,,,, Famotidine,,,,, FeNOfibrate,,,,, Singulair,,,,, CiALIS,,,,, EMpagliflozin,,,,, Coenzyme Q10,,,,, Stress Test Details Test: LEXISCAN HR Resting HR: 63 bpm Max Heart Rate (APMHR): 147.173869 bpm Max HR Achieved: 81 bpm Target HR (85% APMHR): 124.241118 bpm % of APMHR: 55.10 Recovery HR: 69 bpm BP Resting BP: 178/95 mmHg Max BP: 184/90 mmHg Recovery BP: 168.0/85.0 mmHg ECG Clinical Exercise duration: 04:01 min Highest Stage Achieved: Exercise capacity: 1.0 METs Stress ECG Conclusion Symptoms: SOA w/ Lexiscan. nausea w/ Lexiscan. no chest pain Arrhythmias/Ectopy: none ST-T Changes: <1.5mm ST segment depression Electronically signed by : Bradford Tomlin MD 03/17/2022 20:02:11
--- NOTE | 2022-03-17 06:27 | NM_ITS ---
APPROVED REPORT Exam: Nuclear Stress Test Indication: Chest pain, SOB, HTN, DM, CAD, CABG, Family history Patient Location: Outpatient Stress Tech: Wendy Mae GA Tech:Alana Barr, ARRT, RT (R)(N) Ht: 5 ft 11 in Wt: 220 lbs HR: 59 bpm BP: 178/95 mmHg BSA: 2.20 m2 BMI: 30.6 History: Chest pain, SOB, HTN, DM, CAD, CABG, Family history Procedure: Patient received a 0.4 mg of intravenous Lexiscan, resting heart rate 59 bpm, resting blood pressure 178/95 mmHg, with Lexiscan maximum heart rate achived was 76 bpm which is Less than 85 % of the maximum predicted heart rate and blood pressure was 173/94 mmHg. With Lexiscan, patient denied any complaint of chest pain. Electrocardiogram Resting electrocardiogram showed sinus rhythm right bundle branch block, with Lexiscan there is less than 1.[address] segment depression noted from the baseline EKG. The EKG portion of the Lexiscan is nondiagnostic. Cardiac Stress and Resting SPECT Images: Cardiac Stress and Resting SPECT images were obtained using technetium 99m Myoview 29.8 mCi stress and 10.85 mCi at rest. Gated SPECT for analysis of segmental wall motion and calculation of the ejection fraction also done. Prone images were also obtained. Cardiac stress and resting SPECT images show partial reversible defect involving the inferior wall consistent with mixed ischemia and scar, computer derived ejection fraction is 50% with moderate inferior wall hypokinesis. Right ventricle is normal size and contractility. Conclusion: 1. The EKG portion of the Lexiscan is nondiagnostic. 2. Scintigraphic evidence of mixed ischemia and scar involving the inferior wall, computer derived ejection fraction is 50% with segmental wall motion abnormality described above, right ventricle is normal size and contractility. 3. Abnormal Lexiscan Myoview study. Electronically signed by : Bradford Tomlin MD 03/17/2022 20:08:06
--- NOTE | 2022-03-17 08:19 | CA_ITS ---
FINAL REPORT TECHNIQUE: Color Doppler, duplex Doppler and gaxiola scale sonography of the bilateral neck arterial vasculature was performed. Velocities were measured in the carotid arteries. Stenosis evaluation based on the validated velocity criteria. CLINICAL HISTORY: cad, [id number] FINDINGS: DUPLEX SCAN OF CAROTID ARTERIES JAYNA The peak systolic velocity of the right common carotid artery is 81 cm/s. The peak systolic velocity of the right internal carotid artery is 190 cm/s and end diastolic velocity 53 cm/s. The ICA/CCA ratio is 2.34. A moderate amount of plaque is present. The right external carotid artery is patent. The right vertebral artery is patent with antegrade flow. The peak systolic velocity of the left common carotid artery is 72 cm/s. The peak systolic velocity of the left internal carotid artery is 134 cm/s and end diastolic velocity 41 cm/s. The ICA/CCA ratio is 1.86. A moderate amount of plaque is present. The left external carotid artery is patent.The left vertebral artery is patent with antegrade flow. IMPRESSION: Greater than 50% right carotid stenosis. Recommend CTA for further characterization. Less than 50% left carotid stenosis. Bilateral patent vertebral arteries with antegrade flow. Reviewed, Interpreted and Dictated by Marlon Noyola MD Transcribed by Yennifer Perez Authenticated by Marlon Noyola MD on 03/17/2022 12:16:[address] [facility]
--- NOTE | 2022-03-17 08:38 | HMH.ITSHM ---
Current Home Medications as stated by this patient Ruy Guerrero or food products sales representative. []TADALAFIL OMEPRAZOLE MONTELUKAST METFORMIN LOSARTAN FAMOTIDINE FENOFIBRATE EMPAGLIFLOZIN COQ10 VITAMIN D3 CARVEDILOL ASA ALFUZOSIN
== END ==
PROVIDERS: PCP Family Medicine; Visit Provider Physician Assistant
DX: R06.02 Shortness of breath (principal); R09.89 Other specified symptoms and signs involving the circulatory and respiratory systems
CPT/HCPCS: 78452; 93017; 93880; A9502; J2785

== ENCOUNTER → 2022-03-29 08:30 | Outpatient (CLI) | payer BC, SELFPAY ==
[2022-03-29 09:26] LABS: Basophils # 0.1 K/mm3 (0-0.2); Basophils % 0.9 % (0.1-2.0); Eosinophils # 0.2 K/mm3 (0.0-0.4); Hematocrit 48.6 % (42.0-52.0); Lymphocytes # 1.4 K/mm3 (0.7-4.5); Lymphocytes % 20.5 % (10-50); Mean Platelet Volume 8.1 fl (7.4-10.4); Monocytes # 0.5 K/mm3 (0.1-1.0); Monocytes % 7.9 % (1.7-9.3); Neutrophils # 4.6 K/mm3 (1.8-7.8); Neutrophils % 67.7 % (37.0-80.0); Platelet Count 248 K/mm3 (142-424); Red Blood Count 5.17 M/mm3 (4.60-6.20); Red Cell Distribution Width 14.2 % (11.5-17.5); White Blood Count 6.8 K/mm3 (4.8-10.8)
[2022-03-29 09:56] LABS: Anion Gap 10.5 mEq/L (5-15); Blood Urea Nitrogen 14 mg/dl (9-20); Calcium 9.7 mg/dl (8.4-10.2); Carbon Dioxide 30 mmol/L (22.0-30.0); Chloride 102 mmol/L (98-107); Estimated Glomerular Filt Rate 73 ml/min (>60); GFR (African American) 89 ML/MIN (>60); Glucose 174 mg/dl (74-100); Potassium 4.5 mmoL/L (3.5-5.1); Sodium 138 mmol/L (136-145)
== END ==
PROVIDERS: Nurse Practitioner Family; Visit Provider Internal Medicine
DX: Z01.812 Encounter for preprocedural laboratory examination (principal); Z11.52 Encounter for screening for COVID-19; R06.00 Dyspnea, unspecified; I10 Essential (primary) hypertension; I21.11 ST elevation (STEMI) myocardial infarction involving right coronary artery; E03.9 Hypothyroidism, unspecified; E11.9 Type 2 diabetes mellitus without complications; E78.2 Mixed hyperlipidemia; G47.33 Obstructive sleep apnea (adult) (pediatric); I65.23 Occlusion and stenosis of bilateral carotid arteries; R94.39 Abnormal result of other cardiovascular function study; I63.9 Cerebral infarction, unspecified; Z99.89 Dependence on other enabling machines and devices; Z79.84 Long term (current) use of oral hypoglycemic drugs
CPT/HCPCS: 36415; 80048; 85025; C9803; U0003; U0005

== ENCOUNTER 2022-03-31 08:02 | Day surgery (SDC) | payer BC, SELFPAY ==
[2022-03-31] VITALS (21 sets, daily range): BP systolic 126–199; BP diastolic 73–106; PULSE 54–76; RESP 18; O2SAT 95–99; BMI 30.8
--- NOTE | 2022-03-31 07:15 | IR_ITS ---
APPROVED REPORT Patient Location: Outpatient PROCEDURES Left heart catheterization Left ventriculogram Selective coronary angiogram Selective engagement of the left internal mammary artery Selective engage in the saphenous vein graft to the circumflex artery Selective engagement of the saphenous vein graft to the right coronary artery Selective engagement of the right vertebral artery with angiography Selective engagement of the left vertebral artery with angiography Selective engagement of the right common carotid artery Right internal carotid artery angiogram Right intracerebral internal carotid artery angiogram Selective engagement left common carotid artery Left internal carotid artery angiogram Left intracerebral internal carotid artery angiogram INDICATION Coronary artery disease, History of coronary bypass surgery, Typical angina pectoris, Abnormal Myoview, Carotid artery stenosis, Abnormal carotid ultrasound greater than 50% right internal carotid artery stenosis Informed consent was obtained prior to the procedure. COMPLICATIONS None Estimated Blood Loss: Less than 10 mls TECHNIQUE One percent lidocaine used to anesthetize the right groin. The right femoral artery was accessed via the Seldinger technique and a 5 [place]ian sheath was placed in the right femoral artery. A JL 4, JR4 catheter were used to perform left heart catheterization, left ventriculogram selective coronary angiography as well as selective engagement of the 2 vein grafts and the left internal mammary artery. A JR4 catheter was used to perform selective four-vessel angiography with intracerebral angiography. At the end the procedure the patient was transferred to the postop holding area in stable condition for sheath removal ANGIOGRAPHIC RESULTS The left main artery Has a distal concentric 50 to 60% stenosis The left anterior descending artery Proximally occluded The circumflex artery Is probably a codominant vessel. All obtuse marginal arteries are subtotally occluded. The first obtuse marginal artery is subtotally occluded in the proximal segment and evidence of competitive flow from the vein graft The right coronary artery Codominant vessel has proximal 30% stenosis with a stent in the proximal to mid segment which is widely patent with 30% in-stent restenosis distal to the right coronary artery stent is a concentric 40% stenosis which actually matches the diameter of the distal runoff and distal vessels. There is a subtotally occluded marginal branch which looks like the posterior lateral branch. The CHOWDHURY ventriculogram reveals Preserved at 50 to 55% The left ventricular end-diastolic pressure 10 mmHg MCCALL to LAD widely patent to left anterior descending artery Saphenous vein graft to circumflex artery has a diameter stenosis of 70% when compared to the diameter of the vein graft however when comparing the minimal luminal diameter of the vein graft to the [place] circumflex artery there is no demonstrable difference. Normal flow was present down this vein graft Saphenous vein graft right coronary artery ostially occluded Right common carotid artery widely patent Right internal carotid artery has mild 40% smooth stenosis with normal intracerebral vasculature free of atheromatous debris or aneurysmal dilatation Left common carotid artery widely patent Left internal carotid artery has mild 20% stenosis with normal intracerebral vasculature free of atheromatous debris and aneurysmal dilatation. The left internal carotid artery is dominant and does cross the midline and supply a portion of the right cerebrum Left vertebral artery is widely patent into the basilar artery and free of significant disease Right vertebral artery is
== END 2022-03-31 14:07 | disposition home or self-care (01) ==
LOC: CATHLAB 08:04
PROVIDERS: PCP Nurse Practitioner Family; Visit Provider Internal Medicine
DX: I25.118 Atherosclerotic heart disease of native coronary artery with other forms of angina pectoris (principal); I25.728 Atherosclerosis of autologous artery coronary artery bypass graft(s) with other forms of angina pectoris; I65.23 Occlusion and stenosis of bilateral carotid arteries; E03.9 Hypothyroidism, unspecified; E11.9 Type 2 diabetes mellitus without complications; E78.2 Mixed hyperlipidemia; G47.33 Obstructive sleep apnea (adult) (pediatric); I10 Essential (primary) hypertension; I25.2 Old myocardial infarction; R94.39 Abnormal result of other cardiovascular function study; Z79.84 Long term (current) use of oral hypoglycemic drugs; Z87.891 Personal history of nicotine dependence; Z95.1 Presence of aortocoronary bypass graft; I77.1 Stricture of artery
CPT/HCPCS: 36224; 36226; 93459; 99152; 99153; C1725; C1769; C1894; J1644; Q9967

== ENCOUNTER → 2022-10-20 12:36 | Outpatient (CLI) | payer BC, SELFPAY ==
--- NOTE | 2022-10-20 12:37 | CA_ITS ---
FINAL REPORT CLINICAL HISTORY: CINTHYA,CAD,HTN FINDINGS: RIGHT CAROTID: CCA PSV 89.8-51.3 cm/sec ICA PSV 59.9-152.9 cm/sec ICA/CCA PSV ratio 2.98 Comments: Mild plaque disease is noted. LEFTCAROTID: CCA PSV 63.1 - 49.4. cm/sec ICA PSV 46.6- 78.7. cm/sec ICA/CCA PSV ratio 1.59 Comments: Mild plaque disease is noted. Antegrade flow is seen within the vertebral arteries. IMPRESSION: Less than 50% stenosis bilaterally. Reviewed, Interpreted and Dictated by Germain Nguyen MD Transcribed by Che Amaro Authenticated and [facility]
== END ==
PROVIDERS: PCP Family Medicine; Visit Provider Nurse Practitioner Family
DX: I65.23 Occlusion and stenosis of bilateral carotid arteries (principal); I25.118 Atherosclerotic heart disease of native coronary artery with other forms of angina pectoris; I10 Essential (primary) hypertension; E11.9 Type 2 diabetes mellitus without complications; E78.2 Mixed hyperlipidemia
CPT/HCPCS: 93880

== ENCOUNTER → 2022-12-30 06:48 | Outpatient (CLI) | payer MEDICARE, SELFPAY ==
--- NOTE | 2022-12-30 06:49 | CA_ITS ---
FINAL REPORT TECHNIQUE: Grayscale, color Doppler and duplex Doppler ultrasound of the kidneys, aorta and renal arteries was performed. Multiple velocities were measured. CLINICAL HISTORY: HTN,DM,CAD FINDINGS: Aorta velocity: 78 cm/sec Right kidney: 13.9 cm. Multiple benign-appearing cysts, largest measuring 2.3 x 2.3 cm. Right intrarenal RI: 0.7 Right renal artery velocity: 244 cm/sec. Right RAR (Renal artery-Aortic Ratio): 3.13 Left Kidney: 13.5 cm. Multiple benign-appearing cysts, largest measuring 3.3 x 3.4 cm Left intrarenal RI: 0.72 Left renal artery velocity: 220 cm/sec. Left RAR (Renal Artery-Aortic Ratio): 2.83 IMPRESSION: The peak velocity of the right renal artery origin is 244 cm/sec and the peak velocity of the left mid renal artery is 220 cm/sec but the ratios are less than 3.5 resulting in less than 60% renal artery stenosis. Multiple benign appearing renal cysts. CT angiogram or postcontrast MR angiogram would be more sensitive for evaluation of possible renal artery stenosis. Reviewed, Interpreted and Dictated by Marlon Noyola MD Transcribed by Yennifer Perez Authenticated and [facility]
--- NOTE | 2022-12-30 07:38 | US_ITS ---
FINAL REPORT TECHNIQUE: Ultrasound images of the kidneys and bladder were obtained. CLINICAL HISTORY: I10 - Essential (primary) hypertension FINDINGS: The right kidney measures 13.2 cm in length. It is normal in echogenicity. There is no hydronephrosis. The left kidney measures 11.6 cm in length. It is normal in echogenicity. There is no hydronephrosis. There are multiple anechoic structures in both kidneys, predominantly exophytic consistent with benign cysts. Largest cyst is on the left measuring up to 2.8 cm. IMPRESSION: Benign renal cysts. Reviewed, Interpreted and Dictated by Marlon Noyola MD Transcribed by Katie Rain Authenticated and [facility]
== END ==
PROVIDERS: PCP Family Medicine; Visit Provider Nurse Practitioner Family
DX: I10 Essential (primary) hypertension (principal)
CPT/HCPCS: 76770; 93976

== ENCOUNTER → 2023-02-10 10:00 | Outpatient (CLI) | payer MEDICARE, OTHER, SELFPAY ==
[2023-02-10 17:38] LABS: Basophils # 0.1 K/mm3 (0-0.2); Eosinophils # 0.1 K/mm3 (0.0-0.4); Hematocrit 47.9 % (42.0-52.0); Hemoglobin 15.7 g/dL (14.1-18.0); Lymphocytes # 1.2 K/mm3 (0.7-4.5); Mean Corpuscular HGB Conc 32.8 g/dL (31.8-35.4); Mean Corpuscular Hemoglobin 30.6 pg (27.0-31.2); Mean Corpuscular Volume 93.3 fl (80-94); Mean Platelet Volume 8.8 fl (7.4-10.4); Monocytes # 0.5 K/mm3 (0.1-1.0); Neutrophils # 5.9 K/mm3 (1.8-7.8); Neutrophils % 76.1 % (37.0-80.0); Platelet Count 201 K/mm3 (142-424); Red Blood Count 5.13 M/mm3 (4.60-6.20); Red Cell Distribution Width 14.4 % (11.5-17.5); White Blood Count 7.8 K/mm3 (4.8-10.8)
[2023-02-10 18:25] LABS: Alanine Aminotransferase 25 U/L (12-78); Albumin Level 3.9 g/dl (3.5-5.0); Albumin/Globulin Ratio 1.7 (1.1-1.8); Alkaline Phosphatase 115 U/L (38-126); Anion Gap 11.7 mEq/L (5-15); Aspartate Amino Transferase 24 U/L (17-59); Bilirubin,Total 0.9 mg/dl (0.2-1.3); Blood Urea Nitrogen 17 mg/dl (9-20); Carbon Dioxide 25 mmol/L (22.0-30.0); Chloride 101 mmol/L (98-107); Chol/HDL Ratio 5.9 (1-3.5); Cholesterol 223 mg/dl (140-200); Estimated Glomerular Filt Rate 94 ml/min (>60); GFR (African American) 114 ML/MIN (>60); Globulin 2.3 g/dL (1.3-3.2); Glucose 195 mg/dl (74-100); HDL Cholesterol 38 mg/dl (40-60); Potassium 4.7 mmoL/L (3.5-5.1); Sodium 133 mmol/L (136-145); Total Protein,Serum 6.2 g/dl (6.3-8.2); Triglycerides 351 mg/dl (30-150); VLDL Cholesterol 70 mg/dL (0-40)
[2023-02-10 18:36] LABS: Direct LDL Cholesterol 126.13 mg/dL (100-129)
[2023-02-10 18:43] LABS: Creatinine,Urine Random 25 mg/dL (Not Estab.)
[2023-02-10 18:47] LABS: Microalbumin/Creatinine Ratio 25.2
[2023-02-10 18:56] LABS: Prostate Specific Ag Screen 0.5 ng/ml (0.0-4.0); Thyroid Stimulating Hormone 3.33 uIU/mL (0.465-4.68)
[2023-02-10 20:16] LABS: Hemoglobin A1C 10.5 % (4.0-6.0)
== END ==
PROVIDERS: PCP Family Medicine; Visit Provider Family Medicine
DX: E11.9 Type 2 diabetes mellitus without complications; I10 Essential (primary) hypertension; E78.5 Hyperlipidemia, unspecified; Z00.00 Encounter for general adult medical examination without abnormal findings; R53.83 Other fatigue; Z12.5 Encounter for screening for malignant neoplasm of prostate; Z79.84 Long term (current) use of oral hypoglycemic drugs
CPT/HCPCS: 80053; 80061; 82043; 82570; 83036; 84443; 85025; G0103

== ENCOUNTER → 2023-05-09 09:05 | Outpatient (CLI) | payer MEDICARE, OTHER, SELFPAY ==
[2023-05-08 16:30] LABS: Microalbumin/Creatinine Ratio 32.3
[2023-05-08 16:31] LABS: Creatinine,Urine Random 65 mg/dL (Not Estab.)
== END ==
PROVIDERS: PCP Family Medicine; Visit Provider Family Medicine
DX: E11.9 Type 2 diabetes mellitus without complications (principal); Z79.84 Long term (current) use of oral hypoglycemic drugs
CPT/HCPCS: 82043; 82570

== ENCOUNTER → 2023-05-11 08:21 | Outpatient (CLI) | payer MEDICARE, OTHER, SELFPAY ==
--- NOTE | 2023-05-11 08:27 | NM_ITS ---
FINAL REPORT CLINICAL HISTORY: LT HIP PAIN, S/P LT HIP REPLACEMENT 3 YEARS AGO. WITH PRIOR BONE SCAN 2021 COMPARISON: 02/18/2022 FINDINGS: 3-PHASE BONE SCAN COMPARISON: Existing relevant imaging studies: None. PROCEDURE: The patient was injected with 25.1 mCi of technetium 99M MDP. Limited images of the left hip were obtained after a three-hour delay. FINDINGS: Flow phase: Symmetric flow Blood pool phase: No abnormal increased activity Delayed phase: Photopenic defect from left hip prosthesis. There is mild increased activity adjacent to the femoral component which is probably related to presence of prosthesis. No other abnormal radiotracer activity identified. IMPRESSION: No definite area of concern identified. Reviewed, Interpreted and Dictated by Marlon Noyola MD Transcribed by Margarita Allison Authenticated and [facility]
[2023-05-11 10:59] LABS: Basophils % 0.3 % (0.1-2.0); Eosinophils # 0.1 K/mm3 (0.0-0.4); Eosinophils % 0.7 % (0.1-12.0); Hematocrit 45.5 % (42.0-52.0); Hemoglobin 15.1 g/dL (14.1-18.0); Lymphocytes # 1.4 K/mm3 (0.7-4.5); Lymphocytes % 20.1 % (10-50); Mean Corpuscular HGB Conc 33.1 g/dL (31.8-35.4); Mean Corpuscular Hemoglobin 31.1 pg (27.0-31.2); Mean Corpuscular Volume 93.9 fl (80-94); Mean Platelet Volume 7.7 fl (7.4-10.4); Monocytes # 0.5 K/mm3 (0.1-1.0); Monocytes % 6.8 % (1.7-9.3); Neutrophils # 4.9 K/mm3 (1.8-7.8); Platelet Count 168 K/mm3 (142-424); Red Blood Count 4.84 M/mm3 (4.60-6.20); Red Cell Distribution Width 13.9 % (11.5-17.5); White Blood Count 6.8 K/mm3 (4.8-10.8)
[2023-05-11 11:31] LABS: C-Reactive Protein 1.3 mg/L (0-4)
--- NOTE | 2023-05-11 13:00 | XR_ITS ---
FINAL REPORT CLINICAL HISTORY: S/P 3-PHASE BONE SCAN TODAY, LT HIP REPLACEMENT 3 YRS AGO COMPARISON: 02/18/2022 FINDINGS: LEFT HIP: Two views of the left hip demonstrate no acute fracture or dislocation. The patient has undergone prior left hip arthroplasty unchanged in appearance since prior plain films of 02/18/2022. No convincing evidence of bony resorption is seen. The visualized bony structures are well aligned. No soft tissue abnormality is seen. IMPRESSION: Prior left hip arthroplasty. No acute bony abnormality identified. Reviewed, Interpreted and Dictated by Marlon Noyola MD Transcribed by Anjelica Stallworth Authenticated and . [facility]
== END ==
PROVIDERS: Physician Assistant; PCP Family Medicine; Visit Provider Orthopaedic Surgery Adult Reconstructive Orthopaedic Surgery
DX: M25.552 Pain in left hip (principal); Z96.642 Presence of left artificial hip joint
CPT/HCPCS: 36415; 73502; 78315; 85025; 85651; 86140; A9503

== ENCOUNTER → 2023-08-05 12:00 | Outpatient (CLI) | payer MEDICARE, SELFPAY ==
[2023-08-05 18:18] LABS: Chloride 102 mmol/L (98-107); Potassium 4.3 mmoL/L (3.5-5.1); Sodium 135 mmol/L (136-145)
[2023-08-05 18:21] LABS: Anion Gap 11.3 mEq/L (5-15); Blood Urea Nitrogen 13 mg/dl (9-20); Carbon Dioxide 26 mmol/L (22.0-30.0); Cholesterol 187 mg/dl (140-200); Estimated Glomerular Filt Rate 82 ml/min (>60); GFR (African American) 100 ML/MIN (>60); Triglycerides 375 mg/dl (30-150); VLDL Cholesterol 75 mg/dL (0-40)
[2023-08-05 18:22] LABS: Calcium 9.1 mg/dl (8.4-10.2); Chol/HDL Ratio 7.2 (1-3.5); Glucose 368 mg/dl (74-100); HDL Cholesterol 26 mg/dl (40-60)
[2023-08-05 18:33] LABS: Direct LDL Cholesterol 76.15 mg/dL (100-129)
[2023-08-05 18:56] LABS: Hemoglobin A1C 10.4 % (4.0-6.0)
== END ==
PROVIDERS: PCP Family Medicine; Visit Provider Family Medicine
DX: E11.9 Type 2 diabetes mellitus without complications (principal); E78.5 Hyperlipidemia, unspecified; Z00.00 Encounter for general adult medical examination without abnormal findings; Z79.4 Long term (current) use of insulin
CPT/HCPCS: 80048; 80061; 83036

== ENCOUNTER 2023-08-14 00:40 | Inpatient (IN) | payer MEDICARE, SELFPAY ==
[2023-08-14] VITALS (58 sets, daily range): BP systolic 92–190; BP diastolic 44–106; PULSE 54–110; RESP 14–27; TEMP 36.4–37.4; O2SAT 94–99; BMI 28.7
--- NOTE | 2023-08-14 | IR_ITS ---
APPROVED REPORT Patient Location: Inpatient Quality Technician Fiberglass: ZOLTAN Mo RT (R) PROCEDURES Left heart catheterization Left ventriculogram Selective coronary angiogram Left internal mammary angiography Selective engagement of saphenous vein graft to the diagonal artery Selective engagement of the saphenous vein graft to the right coronary artery Drug-eluting stent deployment to the saphenous vein graft supplying the diagonal artery Drug-eluting stent deployment to the proximal dominant right coronary artery and distal right coronary artery in a noncontiguous manner with 2 different drug-eluting stents INDICATION Aborted ST elevation myocardial infarction, Coronary artery disease, History of coronary bypass surgery Informed consent was obtained prior to the procedure. COMPLICATIONS None Estimated Blood Loss: Less than 10 ml TECHNIQUE One percent lidocaine used to anesthetize the right groin. The right femoral artery was accessed via the Seldinger technique and a 5 Lao sheath was placed in the right femoral artery. A JL 4, JR4 catheter were used to perform left heart catheterization, left ventriculogram selective coronary angiography as well as selective engagement of the 2 vein grafts and the left internal mammary artery. At the end the diagnostic angiogram therapeutic heparin was administered and a JR4 guide catheter was placed in the saphenous vein graft. A Choice PT extra-support wire was placed distally and a 3 mm x 15 mm [place] frontier stent was deployed at 20 armen reducing the critical stenosis to 0%. An additional 3 mm x 18 mm [place] frontier stent was placed distal to this in a noncontiguous manner and deployed at 18 armen. No reflow occurred however responded well to 800 mcg of intra saphenous vein graft nitroglycerin. A guide liner was used to directly infuse the nitroglycerin into the vein graft. Following this and reestablishment of normal flow down the diagonal artery the apparatus was removed and placed into the right coronary artery followed by Choice PT extra-support wire being placed distally. A guide liner was required. A 3.5 x 38 mm Alex frontier stent was placed in the ostial proximal segment and deployed at 20 armen. This allowed advancement of the guide liner. A 3 mm x 12 mm balloon was used to predilate the stenosis followed by a 3 mm x 26 mm Alex frontier stent which was placed distally and deployed at 18 armen. LAXMI II flow was present at the beginning of the procedure with LAXMI-3 flow at the end of the procedure. At the end of the procedure the apparatus was removed the sheath was sewn into place patient was transferred to the postop holding in stable condition ANGIOGRAPHIC RESULTS The left main artery Distal 90% stenosis The left anterior descending artery Ostial 90% stenosis then subtotally occluded. The circumflex artery Subtotally occluded proximally The right coronary artery Is a dominant vessel and has proximal 50% stenosis with a distal 90% complex stenosis. A large trifurcating posterior lateral branch is present distally with diffuse 90% stenoses. The stenoses involve bifurcations of the 3 distal branches. Posterior descending artery is proximally occluded The CHOWDHURY ventriculogram reveals Dilated ventricle reduced ejection fraction less than 35% The left ventricular end-diastolic pressure 20 mmHg MCCALL is patent to a small to medium sized LAD Saphenous vein graft to a diagonal artery has a proximal complex 90% stenosis in the distal complex 70 to 80% stenosis Saphenous vein graft to right coronary ostially occluded IMPRESSION Successful stenting of the saphenous vein graft to the diagonal artery critical disease reduced to 0% with 2 noncontiguous drug-eluting stents into the saphenous vein graft Successful stenting of the
--- NOTE | 2023-08-14 00:40 | ECG_ITS ---
APPROVED REPORT Exam: Resting ECG HR:76 bpm ECG Measurements Heart Rate 76 AXES [place] 167 P 42 QRSd 154 QRS -46 QT 398 T 31 QTc 428 Conclusion SINUS RHYTHM RIGHT BUNDLE BRANCH BLOCK [120+ ms QRS DURATION, UPRIGHT V1, 40+ ms S IN I/aVL/V4/V5/V6] INFERIOR MYOCARDIAL INFARCTION , POSSIBLY ACUTE [40+ ms Q WAVE AND/OR ST/T ABNORMALITY IN II/aVF] ACUTE IN UNCONFIRMED REPORT Electronically signed by : Christopher James MD 08/14/2023 09:56:04
--- NOTE | 2023-08-14 00:40 | PC.NURSE ---
on the phone with
--- NOTE | 2023-08-14 00:51 | XR_ITS ---
PROCEDURE INFORMATION: Exam: XR Chest Exam date and time: 08/14/2023 1:14 AM Age: 72 years old Clinical indication: Pain; Left-sided; Prior surgery; Surgery date: 6+ months; Surgery type: Open heart; Additional info: Stemi TECHNIQUE: Imaging protocol: Radiologic exam of the chest. Views: 1 view. COMPARISON: CR XR CHEST PORTABLE 02/11/2022 8:51 AM FINDINGS: Lungs: Unremarkable. No consolidation. Pleural spaces: Unremarkable. No pleural effusion. No pneumothorax. Heart/Mediastinum: Unremarkable. No cardiomegaly. Bones/joints: The patient is status post median sternotomy. IMPRESSION: No dense parenchymal consolidation, pleural effusion, or pneumothorax.
--- NOTE | 2023-08-14 00:55 | HMH.EDGENADL ---
Discharge Plan Disposition Patient Disposition: Admitted As Inpatient Condition: Fair Clinical Impressions Clinical Impression: STEMI (ST elevation myocardial infarction), Stable angina Discharge ED Provider: Alfonso Patel General Adult HPI General Chief complaint: Chest Pain Stated complaint: chest pain Time Seen by Provider: 08/14/23 00:47 Mode of Arrival: EMS Source of Information: Patient Limitations: No Limitations Description of Symptoms (Recalled from ER Triage Doc. by RN): Pt complains of chest pain x 2 weeks, with left anterior discomfort and radiating down left arm. He states tonight he was lying in bed and the pain increased. EMS called in stemi on their EKG. Dr Hamilton reviewing. History of Present Illness HPI narrative: 72-year-old male with history of four-vessel CABG followed by 3 stents 1 year prior to arrival, CAD, hypertension, hyperlipidemia, sleep apnea, diabetes, BALJINDER presenting with chest pain. Patient states that chest pains been going on for about 2 weeks. Last night, 08/13, patient was laying down to go to bed. He was woken up from sleep by severe pain in his left upper extremity and mild shortness of breath. Called EMS. EMS arrived, patient hypertensive with systolic 240-260, nontachycardic, did not appear to be in distress. Glucose greater than 200. Patient was given 325 mg aspirin and 0.4 mg nitroglycerin and brought to the ER for further evaluation. Twelve-lead with EMS concerning for STEMI. Related Data Home Medications Medication Instructions Recorded Confirmed cholecalciferol (vitamin D3) 125 5,000 unit PO DAILY Supplement 06/08/19 08/07/23 mcg (5,000 unit) capsule coenzyme Q10 10 mg capsule 10 mg PO DAILY Supplement 06/08/19 08/07/23 krill 500 mg-omega 3 115 mg-dha 30 2 cap PO DAILY Supplement 06/08/19 08/07/23 mg-epa 64 [id number] capsule (MegaRed [place]-3 Krill Oil) Previous Rx's Medication Instructions Recorded carvedilol 25 mg tablet 25 mg PO BID bp #60 tabs 04/13/23 terbinafine HCl 250 mg tablet 250 mg PO DAILY #30 tabs 04/13/23 triamcinolone acetonide 0.1 % 1 applic topical TID inflammation 05/08/23 topical cream #30 grams hydrochlorothiazide 12.5 mg tablet 12.5 mg PO DAILY #30 tabs 05/14/23 terazosin 5 mg capsule 10 mg PO DAILY 30 days #60 caps 06/02/23 omeprazole 40 mg capsule,delayed 40 mg PO DAILY #90 caps 08/03/23 release fluconazole 150 mg tablet 150 mg PO DAILY 10 days #10 tabs 08/06/23 (Diflucan) hydralazine 100 mg tablet 100 mg PO BID #60 tabs 08/07/23 insulin glargine 100 unit/mL (3 10 unit (0.1 mL) SQ HS #15 mL 08/07/23 mL) subcutaneous pen (Lantus Solostar U-100 Insulin) Allergies Allergy/AdvReac Type Severity Reaction Status Date / Time pravastatin AdvReac Mild nausea Verified 08/07/23 10:48 losartan AdvReac Intermediate rash Uncoded 08/07/23 10:48 norvasc AdvReac Intermediate Uncoded 08/07/23 10:48 PFSH PFS Disclaimer: The information contained in this section may have been updated after the patient was seen, as this information can be updated by other users. Medical History Abnormal cardiovascular stress test CAD (coronary artery disease) Carotid artery stenosis Diabetes mellitus Dyspnea Gastroesophageal reflux disease HLD (hyperlipidemia) HTN (hypertension) Hypothyroidism BALJINDER on CPAP Sleep apnea STEMI (ST elevation myocardial infarction) Typical angina Unstable angina Surgical History H/O heart artery stent History of hip replacement History of surgery on arm Hx of CABG Family History Sister Cancer Coronary artery disease Diabetes Brother Cancer Coronary artery disease Diabetes Father Diabetes Social History Smoking Status: Former smoker second hand exposure: No alcohol intake: never
--- NOTE | 2023-08-14 00:56 | PC.NURSE ---
on the phone with
--- NOTE | 2023-08-14 00:56 | PC.NURSE ---
on the phone with Hospitalist
[2023-08-14 01:02] LABS: Basophils % 0.6 % (0.1-2.0); Eosinophils # 0.1 K/mm3 (0.0-0.4); Eosinophils % 0.6 % (0.1-12.0); Hematocrit 47.3 % (42.0-52.0); Hemoglobin 15.3 g/dL (14.1-18.0); Lymphocytes # 1.7 K/mm3 (0.7-4.5); Lymphocytes % 22.7 % (10-50); Mean Corpuscular HGB Conc 32.4 g/dL (31.8-35.4); Mean Corpuscular Hemoglobin 30.4 pg (27.0-31.2); Mean Corpuscular Volume 93.9 fl (80-94); Mean Platelet Volume 8.1 fl (7.4-10.4); Monocytes # 0.5 K/mm3 (0.1-1.0); Monocytes % 7.4 % (1.7-9.3); Neutrophils % 68.6 % (37.0-80.0); Platelet Count 206 K/mm3 (142-424); Red Blood Count 5.04 M/mm3 (4.60-6.20); Red Cell Distribution Width 13.9 % (11.5-17.5); White Blood Count 7.3 K/mm3 (4.8-10.8)
[2023-08-14 01:04] LABS: Chloride 99 mmol/L (98-107); Potassium 3.9 mmoL/L (3.5-5.1); Sodium 137 mmol/L (136-145)
[2023-08-14 01:07] LABS: Alanine Aminotransferase 26 U/L (12-78); Albumin Level 3.9 g/dl (3.5-5.0); Albumin/Globulin Ratio 1.6 (1.1-1.8); Alkaline Phosphatase 111 U/L (38-126); Anion Gap 10.9 mEq/L (5-15); Aspartate Amino Transferase 29 U/L (17-59); Bilirubin,Total 0.6 mg/dl (0.2-1.3); Blood Urea Nitrogen 16 mg/dl (9-20); Calcium 8.7 mg/dl (8.4-10.2); Carbon Dioxide 31 mmol/L (22.0-30.0); Creatinine Clearance Estimated 83 mL/min (50-200); Estimated Glomerular Filt Rate 82 ml/min (>60); GFR (African American) 100 ML/MIN (>60); Globulin 2.5 g/dL (1.3-3.2); Glucose 341 mg/dl (74-100); Total Protein,Serum 6.4 g/dl (6.3-8.2)
[2023-08-14 01:14] LABS: PTT Heparin (inpatient only) 26.8 Seconds (23.6-34.0)
[2023-08-14 01:19] LABS: Troponin I 0.05 ng/ml (0.00-0.034)
[2023-08-14 01:36] LABS: Magnesium 1.7 mg/dl (1.6-2.3)
[2023-08-14 01:51] LABS: Hemoglobin A1C 10.7 % (4.0-6.0)
--- NOTE | 2023-08-14 01:52 | EXP.HP ---
History of Present Illness *Admission Date: 08/14/23 *Reason for visit:: STEMI *History of present illness: 72 year old male presented to the ED via EMS for c/o CP. Upon ems arrival pt found to be hypertensive w/ BP 240/100 and EKG present with ST elevations. PMHX of CAGB, CAD, HLD, HTN, DM, GERD, BALJINDER and hypothyroidism. Last Cardiac cath was 03/31/22 with results of CAD w/ persevered EF. The pt states he has been having left sided CP that radiates down his left arm for three days. Pain is intermittent and is undescribable for patient. When asked to describe pain he states that it just hurts. Pain changed from intermittent to consistent tonight which promoted pt to call 911. He denies nausea or vomiting but reports heartburn. In route the EMS administered nitro and ASA. Upon arrival to the ED the pt's EKG demonstrating inferior infraction with st elevations in leads III and AVF. The pt was denying any chest pain and was in no acute distress. The ED physician consulted Dr. Chandra. The pt was started on a hep gtt and given a loading does of Brilinta and 10 mg of Labetalol. The ED physician consulted the hospitalist team for further medical management. The pt arrives to the step-down unit w/o of chest pain. His first troponin is 0.05. He will remain on the awake overnight monitor and have a cardiology consult placed for this morning. [facility] Disclaimer: The information contained in this section may have been updated after the patient was seen, as this information can be updated by other users. Medical History Abnormal cardiovascular stress test CAD (coronary artery disease) Carotid artery stenosis Diabetes mellitus Dyspnea Gastroesophageal reflux disease HLD (hyperlipidemia) HTN (hypertension) Hypothyroidism BALJINDER on CPAP Sleep apnea STEMI (ST elevation myocardial infarction) Typical angina Unstable angina Surgical History H/O heart artery stent History of hip replacement History of surgery on arm Hx of CABG Family History Sister Cancer Coronary artery disease Diabetes Brother Cancer Coronary artery disease Diabetes Father Diabetes Social History Smoking Status: Former smoker second hand exposure: No alcohol intake: never substance use type: denies use current occupational status: employed Travel in the last 8 weeks: None household members: children housing: house current occupational exposures/hazards: No caffeine: Yes Review of Systems *Cardiovascular Cardiovascular: Denies chest pain, Denies chest pain at rest and Denies dyspnea *Respiratory Respiratory: Denies dyspnea *Gastrointestinal Gastrointestinal: Reports system reviewed and no additional complaints, except as documented *Genitourinary Genitourinary: Reports system reviewed and no additional complaints, except as documented *Musculoskeletal Musculoskeletal: Reports system reviewed and no additional complaints, except as documented *Neurologic Neurologic: Reports system reviewed and no additional complaints, except as documented Meds Home Medications and Allergies Home Medications Medication Instructions Recorded Confirmed Type carvedilol 25 mg tablet 25 mg PO BID High Blood Pressure 08/14/23 08/14/23 History fluconazole 150 mg tablet 150 mg PO DAILY Infection 08/14/23 08/14/23 History hydralazine 100 mg tablet 100 mg PO BID High Blood Pressure 08/14/23 08/14/23 History insulin glargine 100 unit/mL (3 10 unit SQ HS Diabetes 08/14/23 08/14/23 History mL) subcutaneous pen omeprazole 40 mg capsule,delayed 40 mg PO DAILY Acid Reflux 08/14/23 08/14/23 History release sitagliptin phosphate 100 mg 100 mg PO DAILY Diabetes 08/14/23 08/14/23 History tablet (Januvia) terazosin 5 mg capsule 10 mg PO DAILY High Blood Pressure 08/14
[2023-08-14 02:07] LABS: Thyroid Stimulating Hormone 4.63 uIU/mL (0.465-4.68)
[2023-08-14 02:38] LABS: Chol/HDL Ratio 6.7 (1-3.5); Cholesterol 168 mg/dl (140-200); HDL Cholesterol 25 mg/dl (40-60)
[2023-08-14 02:49] LABS: Direct LDL Cholesterol 66.37 mg/dL (100-129)
[2023-08-14 02:52] LABS: Triglycerides 413 mg/dl (30-150)
--- NOTE | 2023-08-14 03:07 | PC.NURSE ---
Additional emergency contacts: Daughter, Daisy [phone]. Daughter, Paige [phone]
--- NOTE | 2023-08-14 04:11 | ECG_ITS ---
APPROVED REPORT Exam: Resting ECG HR:57 bpm ECG Measurements Heart Rate 57 AXES [place] 153 P 55 QRSd 159 QRS -36 QT 427 T -7 QTc 422 Conclusion SINUS BRADYCARDIA RIGHT BUNDLE BRANCH BLOCK [120+ ms QRS DURATION, UPRIGHT V1, 40+ ms S IN I/aVL/V4/V5/V6] INFERIOR MYOCARDIAL INFARCTION , PROBABLY OLD [40+ ms Q WAVE AND/OR ST/T ABNORMALITY IN II/aVF] ABNORMAL ECG UNCONFIRMED REPORT Electronically signed by : Christopher James MD 08/16/2023 07:39:45
--- NOTE | 2023-08-14 04:17 | PC.NURSE ---
3 hr Troponin and AM labs drawn and sent to lab. Hospital JOIST SETTER also requests repeat EKG which was completed at 0411 and handed to her at bedside.
[2023-08-14 04:18] LABS: Basophils % 0.3 % (0.1-2.0); Eosinophils # 0.1 K/mm3 (0.0-0.4); Eosinophils % 0.7 % (0.1-12.0); Hematocrit 42.8 % (42.0-52.0); Hemoglobin 13.9 g/dL (14.1-18.0); Lymphocytes # 1.5 K/mm3 (0.7-4.5); Lymphocytes % 20.7 % (10-50); Mean Corpuscular HGB Conc 32.6 g/dL (31.8-35.4); Mean Corpuscular Hemoglobin 30.9 pg (27.0-31.2); Mean Corpuscular Volume 94.7 fl (80-94); Mean Platelet Volume 8.2 fl (7.4-10.4); Monocytes # 0.5 K/mm3 (0.1-1.0); Monocytes % 7.2 % (1.7-9.3); Neutrophils # 5.1 K/mm3 (1.8-7.8); Neutrophils % 71.1 % (37.0-80.0); Platelet Count 197 K/mm3 (142-424); Red Blood Count 4.52 M/mm3 (4.60-6.20); Red Cell Distribution Width 14.1 % (11.5-17.5); White Blood Count 7.1 K/mm3 (4.8-10.8)
[2023-08-14 04:40] LABS: Troponin I 0.33 ng/ml (0.00-0.034)
--- NOTE | 2023-08-14 04:41 | PC.NURSE ---
Received new Trop of 0.33 per Lora in lab. Spoke to Hospital COOK HELPER FRUIT to report this and that patient remains asymptomatic when asked. VSS and no ECG changes notable. No new orders
[2023-08-14 04:46] LABS: Chloride 101 mmol/L (98-107); Potassium 3.8 mmoL/L (3.5-5.1); Sodium 133 mmol/L (136-145)
[2023-08-14 04:49] LABS: Anion Gap 8.8 mEq/L (5-15); Blood Urea Nitrogen 16 mg/dl (9-20); Calcium 8.1 mg/dl (8.4-10.2); Carbon Dioxide 27 mmol/L (22.0-30.0); Creatinine Clearance Estimated 83 mL/min (50-200); Estimated Glomerular Filt Rate 82 ml/min (>60); GFR (African American) 100 ML/MIN (>60); Glucose 359 mg/dl (74-100)
--- NOTE | 2023-08-14 07:04 | CA_ITS ---
APPROVED REPORT EXAM: Comprehensive 2D, Doppler, and color-flow Echocardiogram Traffic Manager: Viviana Siddiqui CRT Ht: 5 ft 10 in Wt: 200lbs BSA: 2.09 BP: 155/79 mmHg Indications: Chest Pain, Shortness of Breath, STEMI, Diabetes, Hyperlipidemia, Hypertension/HDD, BALJINDER, CABG, stent,GERD 2D Dimensions LVOT 1.87 cm (M/F) 1.5-2.5 LA Volume 34.40 mL LA Volume Index 16.10 mL/m2 (M/F) 16-34 M-Mode Dimensions RVDd 4.00 cm (0.9-2.6) LA Diam 3.88 cm (1.9-4.0) LVDd 4.25 cm (3.5-5.7) Ao Diam 4.30 cm (2.0-3.7) LVDs 3.14 cm (3.5-5.7) IVSd 2.29 cm (0.6-1.1) PWd 0.79 cm (0.6-1.1) EF (Teich) 51.60% FS 26.10% EDV (Teich) 80.80 mL TAPSE 1.68 (<1.7) ESV (Teich) 39.10 mL LV Diastology E Decel Time 150.00 (160-240 msec) E/A Ratio 0.58 MED E' 4.90 (< 7 cm/sec) MED A' 9.20 cm/s E'/MED E' Ratio 10.39 (>14) LAT E' 7.40 (<10 cm/sec) LAT A' 11.30 cm/s E/LAT E' Ratio 6.88 (>14) Aortic Valve AI PHT 755.00 ms AO Peak GR. 3.30 mmHg Mitral Valve MV E Max Rom. 51.00 (40-130 cm/s) MV A Velocity 88.00 (40-130 cm/s) E/A Ratio 0.58 MV Decel. Time 150.00 (160-240 ms) MV PHT 44.00 ms Pulmonary Valve PV Peak Velocity 110.00 (50-150 cm/s) Tricuspid Valve TR P. Velocity 176.00 cm/s RAP Estimate 10.00 mmHg RVSP 22.40 mmHg Left Ventricle The left ventricle is normal size. The left ventricular systolic function is normal. The left ventricular ejection fraction is within the normal range. There is increased LV wall thickness. There is normal LV segmental wall motion. Transmitral Doppler flow pattern suggests impaired LV relaxation. LVEF is 55%. Right Ventricle The right ventricle is normal size. The right ventricular systolic function is normal. Atria The left atrium size is normal. The right atrium size is normal. There is no Doppler evidence of interatrial shunt. Aortic Valve The aortic valve is mildly thickened. The aortic valve opens well. There is no aortic valvular stenosis. Trace aortic regurgitation. Mitral Valve The mitral valve is mildly tihckened. No evidence of mitral valve stenosis. Trace mitral regurgitation. Tricuspid Valve The tricuspid valve leaflets are thin and pliable. Trace tricuspid regurgitation. RVSP is normal. Pulmonic Valve The pulmonary valve is normal in structure. Trace pulmonic regurgitation. Great Vessels The aortic root is normal in size. The ascending aorta is normal in size. IVC is normal in size and collapses >50% with inspiration. Pericardium There is no pericardial effusion. Other Information Study Quality: Fair Conclusion Normal biventricular systolic function. No significant valvular stenosis or regurgitation. Electronically signed by : Kristy Soriano MD 08/14/2023 19:37:16
[2023-08-14 07:37] LABS: PTT Heparin (inpatient only) 42.4 Seconds (23.6-34.0)
--- NOTE | 2023-08-14 07:53 | HMH.PHAHEP ---
[facility] Pharmacy Heparin Dosing Demographic Data Admission date:: 08/14/23 Date: 08/14/23 Time: 07:53 Allergies Allergy/AdvReac Type Severity Reaction Status Date / Time amlodipine [From Norvasc] Allergy Unknown Unknown Verified 08/14/23 08:33 allergy reaction losartan Allergy Unknown Unknown Verified 08/14/23 08:33 allergy reaction pravastatin AdvReac Mild nausea Verified 08/07/23 10:48 Height: 1.78 m Weight: 91 kg Indication Medication therapy:: Heparin Current Indications:: ACS - LOW DOSE PROTOCOL Current Active Problems (Updated 08/14/23 @ 09:07 by YOU Sanz) Abnormal EKG (Acute) ACS (acute coronary syndrome) (Acute) Stable angina (Acute) CAD (coronary artery disease) (Chronic) HLD (hyperlipidemia) (Chronic) HTN (hypertension) (Chronic) Hypothyroidism (Chronic) Sleep apnea (Chronic) STEMI (ST elevation myocardial infarction) (Acute) Diabetes mellitus (Chronic) Hx of CABG (Acute) Carotid artery stenosis (Acute) Gastroesophageal reflux disease (Chronic) BALJINDER on CPAP (Chronic) CVA?: No Bleeding problem?: No Kidney disease?: No PA?: Yes Desired PTT range:: 50-75 seconds Comments:: BASELINE PTT = 26.8 SECONDS Labs Anticoagulation Lab Results:: 08/14/23 08/14/23 00:40 04:05 Hgb 15.3 13.9 L Hct 47.3 42.8 Plt Count 206 197 Monitoring Dose Monitor 1: Date: 08/14/23 Time: 00:40 PTT Result:: 26.8 SECONDS (BASELINE PTT) Infusion Rate:: INITIATED HEPARIN DRIP AT 1000 UNITS/HOUR = 20 ML/HOUR AND BOLUSED 4000 UNITS IV ONCE. Dose Monitor 2: Date: 08/14/23 Time: 06:55 PTT Result:: 42.4 SECONDS Infusion Rate:: INCREASE HEPARIN DRIP RATE TO 1200 UNITS/HOUR = 24 ML/HOUR AND BOLUS 3000 UNITS IV ONCE. Dose Monitor 3: Date: 08/14/23 Time: 13:00 Core Measures Is INR > or = 2 at discharge?: No Most Recent Labs:: Laboratory Results - last 24 hr 08/14/23 00:40: WBC 7.3, RBC 5.04, Hgb 15.3, Hct 47.3, MCV 93.9, MCH 30.4, MCHC 32.4, RDW 13.9, Plt Count 206, MPV 8.1, Neut % (Auto) 68.6, Lymph % (Auto) 22.7, [place] % (Auto) 7.4, Eos % (Auto) 0.6, Baso % (Auto) 0.6, Neut # (Auto) 5.0, Lymph # (Auto) 1.7, [place] # (Auto) 0.5, Eos # (Auto) 0.1, Baso # (Auto) 0.0, APTT 26.8, Sodium 137, Potassium 3.9, Chloride 99, Carbon Dioxide 31 H, Anion Gap 10.9, BUN 16, Creatinine 0.90, Estimated Creat Clear 83, Estimated GFR 82, Est GFR ( Amer) 100, Glucose 341 H, Hemoglobin A1c 10.7 H, Calcium 8.7, Magnesium 1.7, Total Bilirubin 0.6, AST 29, ALT 26, Alkaline Phosphatase 111, Troponin I 0.05 H, Total Protein 6.4, Albumin 3.9, Globulin 2.5, Albumin/Globulin Ratio 1.6, Triglycerides 413 H, Cholesterol 168, LDL Cholesterol Direct 66.37 L, HDL Cholesterol 25 L, Cholesterol/HDL Ratio 6.7 H, TSH 4.63 08/14/23 04:05: WBC 7.1, RBC 4.52 L, Hgb 13.9 L, Hct 42.8, MCV 94.7 H, MCH 30.9, MCHC 32.6, RDW 14.1, Plt Count 197, MPV 8.2, Neut % (Auto) 71.1, Lymph % (Auto) 20.7, [place] % (Auto) 7.2, Eos % (Auto) 0.7, Baso % (Auto) 0.3, Neut # (Auto) 5.1, Lymph # (Auto) 1.5, [place] # (Auto) 0.5, Eos # (Auto) 0.1, Baso # (Auto) 0.0, Sodium 133 L, Potassium 3.8, Chloride 101, Carbon Dioxide 27, Anion Gap 8.8, BUN 16, Creatinine 0.90, Estimated Creat Clear 83, Estimated GFR 82, Est GFR ( Amer) 100, Glucose 359 H, Calcium 8.1 L, Troponin I 0.33 H 08/14/23 06:55: APTT 42.4 H If INR was < than 2.0 why was therapy stopped?: patient taken to labeling associate Were Heparin and Warfarin started on the same day?: No If not, why?: patient taken to labeling associate
--- NOTE | 2023-08-14 08:01 | PC.NURSE ---
instructed by [facility] to increase heparin drip to 1200units/hr and give heparin bolus per emar
--- NOTE | 2023-08-14 08:05 | HMH.PHAINT1 ---
Pharmacy Intervention Comments: MEDICATION RECONCILIATION COMPLETED ON PATIENT USING EXTERNAL FILL HISTORY FROM PHARMACY. -MEERA SAL, EDUD
[2023-08-14 08:12] LABS: POC Glucose,Bedside 341 (70-110)
--- NOTE | 2023-08-14 08:24 | EXP.CARD.CON ---
History of Present Illness History of Present Illness Consult date: 08/14/23 Requesting physician: Gary Godfrey Consult reason: chest pain Chief complaint: chest/back/left arm pain, NSTEMI Additional Medical History:: 1. Coronary artery disease A. Coronary artery bypass grafting in 2008 B. [facility], 10/2018, JOSE RAUL to RCA. SVG to RCA occluded. MCCALL to LAD patent. SVG to ramus and OM patent. Normal EF wit LVEDP of 15 mm Hg C. [facility], 03/31/2022, adequately revascularized. Normal EF. Normal LVEDP. 2. Hypertension 3. Hyperlipidemia 4. Diabetes mellitus type 2 A. Diagnosed 2008 5. FH of CAD 6. BALJINDER by sleep study, 03/2018, recommendation for AutoPAP due to moderate BALJINDER with AHI of 16. 7. Colonoscopy, 09/2019, colonic polyps x4 with grade 1-[address] Romulo Frausto. 8. Left hip surgery, 2019 9. Carotid artery stenosis A. Carotid angiogram, 03/31/2022, R ICA with mild 40% smooth stenosis, LICA with mild 20% stenosis. History of present illness: 72 year old male presented to the ED via EMS for c/o CP. Upon ems arrival pt found to be hypertensive w/ BP 240/100 and EKG present with ST elevations. PMHX of CAGB, CAD, HLD, HTN, DM, GERD, BALJINDER and hypothyroidism. Last Cardiac cath was 03/31/22 with results of CAD w/ persevered EF. The pt states he has been having left sided CP that radiates down his left arm for three days. Pain is intermittent and is undescribable for patient. When asked to describe pain he states that it just hurts. Pain changed from intermittent to consistent tonight which promoted pt to call 911. He denies nausea or vomiting but reports heartburn. In route the EMS administered nitro and ASA. Upon arrival to the ED the pt's EKG demonstrating inferior infraction with st elevations in leads III and AVF. The pt was denying any chest pain and was in no acute distress. The ED physician consulted Dr. Chandra. The pt was started on a hep gtt and given a loading does of Brilinta and 10 mg of Labetalol. The ED physician consulted the hospitalist team for further medical management. The pt arrives to the step-down unit w/o of chest pain. His first troponin is 0.05. He will remain on the engine buildup mechanic and have a cardiology consult placed for this morning. The above per AMANDA Guzman The above events confirmed with the patient. He does relate 2 weeks of intermittent chest pain that seem to occur with activity and resolve with rest. Last evening the symptoms did not resolve with rest which prompted contacting EMS and subsequent transportation to the ER and admission. EKG is sinus with left axis deviation, right bundle branch block and inferior Q waves with slight ST elevation, although somewhat similar to previous EKG. Troponins have turned positive with initial troponin is 0.05-second troponin of 0.33. Recommend proceeding with left heart catheterization with grafts today. Patient agrees to proceed. [facility] Disclaimer: The information contained in this section may have been updated after the patient was seen, as this information can be updated by other users. Medical History Abnormal cardiovascular stress test CAD (coronary artery disease) Carotid artery stenosis Diabetes mellitus Dyspnea Gastroesophageal reflux disease HLD (hyperlipidemia) HTN (hypertension) Hypothyroidism BALJINDER on CPAP Sleep apnea STEMI (ST elevation myocardial infarction) Typical angina Unstable angina Surgical History H/O heart artery stent History of hip replacement History of surgery on arm Hx of CABG Family History Sister Cancer Coronary artery disease Diabetes Brother Cancer Coronary artery disease Diabetes Father Diabetes Social History Smoking Status: Former smoker second hand exposure: No alcohol intake: ne
[2023-08-14 11:30] LABS: Troponin I 0.69 ng/ml (0.00-0.034)
--- NOTE | 2023-08-14 11:32 | PC.NURSE ---
notified MD Godfrey that pt's troponin is 0.69, no new orders at this time
--- NOTE | 2023-08-14 11:34 | PC.NURSE ---
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
--- NOTE | 2023-08-14 13:13 | PC.NURSE ---
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
[2023-08-14 13:42] LABS: CATHL Activated Clotting Time 275 SEC (74-125)
[2023-08-14 13:43] LABS: CATHL Activated Clotting Time > 400 SEC (74-125)
--- NOTE | 2023-08-14 15:14 | CT_ITS ---
FINAL REPORT TECHNIQUE: multiple axial CT images were performed from the foramen magnum to the vertex without enhancement. CLINICAL HISTORY: stroke protocol, post heart cath COMPARISON: 06/02/2019 FINDINGS: The ventricles are enlarged. There is diffuse atrophy. There is periventricular white matter change likely related to small vessel disease. There is an old lacunar infarct in the right schafer radiata. There is no evidence of hemorrhage. No masses are identified. No extra-axial fluid is seen. The sinuses are normal. IMPRESSION: Atrophy and chronic changes without acute process. Reviewed, Interpreted and Dictated by Marlon Noyola MD Transcribed by Maddi Elder Authenticated and [facility]
--- NOTE | 2023-08-14 15:20 | SUR.PHASEII ---
Patient became very confused upon waking post procedure. Sedation reversal agents administered per orders, patient remained confused, taken to radiology for a stat head CT, MD aware of situation.
[2023-08-14 15:31] LABS: POC Glucose,Bedside 316 (70-110)
[2023-08-14 15:57] LABS: Appearance,Urine CLEAR (Clear); Bilirubin,Urine Negative (Negative); Blood, Urine 3+ (Negative); Color,Urine YELLOW (Yellow); Glucose,Urine (UA) 2+ (Negative); Ketones,Urine Negative (Negative); Leukocyte Esterase,Urine Negative (Negative); Nitrate,Urine Negative (Negative); PH,Urine 5.5 (5.0-8.5); Protein,Urine Negative (Negative); Urobilinogen,Urine 0.2 EU/dl (0.2)
[2023-08-14 16:22] LABS: Microscopic, Urine URINE MICROSCOPIC (MICROSCOPIC); RBC,Urine 20-50 #/hpf (0-3); Squamous Epithelial Cell,Urine Occasional #/hpf (0-5)
--- NOTE | 2023-08-14 16:54 | DIET.NUTRFU ---
RD consulted for diabetic counseling, unable to provide at this time. Patient had a cardiac cath today and experiencing some confusion and disorientation post procedure. Left paperwork in folder, please consult as outpatient as needed.
[2023-08-14 17:01] LABS: POC Glucose,Bedside 326 (70-110)
[2023-08-14 20:04] LABS: POC Glucose,Bedside 210 (70-110)
--- NOTE | 2023-08-14 21:51 | PC.NURSE ---
RADIOLOGICAL DEFENSE OFFICER called to bedside at this time due to pt having confusion, aox1, pulling at lines, and attempting to go into hallway. Pt 2x assist to ambulate pt. pt very unsteady and unaware of surroundings. Pt helped back into bed, bed alarm in place. pt continues to be restless. NNO at this time.
--- NOTE | 2023-08-14 22:17 | PC.NURSE ---
2029: pt expressed difficulty swallowing PO pills, spit them back out at me, talking incoherently. was able to administer PO meds one at a time. right groin site dsg with gauze and tegaderm c/d/i. 2124: pt finally resting with eyes closed after confused/combative episode, for best interest of the pt confused state, I didn't take the vitals so he could rest. 2137: daughter brian daniels called to get a status update.
--- NOTE | 2023-08-14 22:52 | PC.NURSE ---
pt contact numbers -deysi cortez [phone] -brian daniels [phone] -marilin cortez [phone]
[2023-08-15] VITALS (10 sets, daily range): BP systolic 103–132; BP diastolic 47–75; PULSE 60–70; RESP 16–18; TEMP 36.8–38.2; O2SAT 91–98; BMI 28.7
[2023-08-15 00:47] LABS: POC Glucose,Bedside 145 (70-110)
--- NOTE | 2023-08-15 06:11 | PC.NURSE ---
0530 temp of 100.8, called amaya level vial curvature gauger. new order of acetaminophen 650mg
--- NOTE | 2023-08-15 06:12 | PC.NURSE ---
pt is a&ox4 (name, , year, situation, children names), swallowed pills good. much more pleasant this AM
--- NOTE | 2023-08-15 06:55 | PC.NURSE ---
reassess temp 99.1 F oral
[2023-08-15 07:01] LABS: POC Glucose,Bedside 233 (70-110)
[2023-08-15 08:52] LABS: Basophils % 0.1 % (0.1-2.0); Eosinophils % 0.1 % (0.1-12.0); Hematocrit 46.4 % (42.0-52.0); Hemoglobin 15.2 g/dL (14.1-18.0); Lymphocytes # 1.1 K/mm3 (0.7-4.5); Lymphocytes % 10.5 % (10-50); Mean Corpuscular HGB Conc 32.8 g/dL (31.8-35.4); Mean Corpuscular Hemoglobin 30.9 pg (27.0-31.2); Mean Corpuscular Volume 94.1 fl (80-94); Mean Platelet Volume 8.9 fl (7.4-10.4); Monocytes # 0.8 K/mm3 (0.1-1.0); Monocytes % 7.2 % (1.7-9.3); Neutrophils # 8.6 K/mm3 (1.8-7.8); Neutrophils % 82.1 % (37.0-80.0); Platelet Count 207 K/mm3 (142-424); Red Blood Count 4.94 M/mm3 (4.60-6.20); White Blood Count 10.5 K/mm3 (4.8-10.8)
[2023-08-15 09:00] LABS: Magnesium 1.6 mg/dl (1.6-2.3)
--- NOTE | 2023-08-15 10:00 | PC.NURSE ---
COURTESY NOTE: assissted pt to bathroom. pt educated on safety measures for bathroom ambulation.
--- NOTE | 2023-08-15 10:39 | DIET.NUTRFU ---
RD consulted for anaid score, Nursing anaid score is 20-21. Increased risk currently due NPO. Nursing indicated difficulty swallowing pills. Based on current decline in cognition he maybe more dependent on staff for repositioning. He has multiple skin tears and bruising to arms and legs. Once diet is advanced will evaluate for supplementation. If unable to take nutrition orally maybe needs to address TF wishes with family. He did receive IVF bolus 08/14 for hydration. BS continue to be elevated with insulin in place.
--- NOTE | 2023-08-15 10:49 | PC.NURSE ---
pt continues to have periods of confusion off and on per family. Spoke with
--- NOTE | 2023-08-15 13:59 | PC.NURSE ---
pt is resting well @ this time. arrouses easily. Daughters @ bedside. groin site unchanged from original assessment this am.
--- NOTE | 2023-08-15 14:17 | PC.NURSE ---
COURTESY NOTE: rounded on pt and asked if he needed any assistance. pt denied assistance with ADLs at this time.
--- NOTE | 2023-08-15 15:14 | EXP.ACUTE.PN ---
Subjective *Date: 08/15/23 *Time: 15:32 Interval history: Patient more alert and oriented this morning. On initial rounds, daughter at bedside states this is my dad as he is more oriented to self than yesterday. Interactive on exam and answering questions appropriately. Knows who he is and where he is and why. Denies any chest pain or shortness of breath. Complains of weakness and fatigue. After rounds however, patient became more fatigued and slightly confused. Did not sleep well last night, was very restless. No nausea or vomiting. Poor p.o. intake this morning however. Afebrile. Medical Exam Vital signs and Labs for Last 24 Hours: Vital Signs Temp Pulse Pulse Resp BP BP Pulse Ox 08/15/23 11:00 08/15/23 12:00 60 08/15/23 08:00 60 08/15/23 11:05 98.6 F 61 18 109/58 L 93 L 08/15/23 09:00 08/15/23 08:32 66 103/63 L 08/15/23 08:00 08/15/23 07:42 99.0 F 66 16 112/55 L 96 08/15/23 04:00 60 08/15/23 04:00 100.8 F H 64 18 107/47 L 91 L 08/15/23 06:20 08/15/23 04:50 08/15/23 03:00 08/15/23 00:00 70 08/14/23 20:00 80 08/14/23 23:50 99.3 F 66 18 92/44 L 94 L 08/14/23 20:00 08/15/23 01:00 08/14/23 23:00 08/14/23 21:00 08/14/23 22:25 80 16 137/76 95 08/14/23 20:25 102 H 18 152/96 H 97 08/14/23 19:25 108 H 16 119/70 98 08/14/23 18:25 92 H 15 163/76 H 97 08/14/23 17:55 69 18 148/75 H 95 08/14/23 17:25 80 17 139/78 96 08/14/23 16:55 85 14 144/82 H 96 08/14/23 16:25 77 15 128/81 95 08/14/23 16:10 82 18 137/57 L 96 08/14/23 15:55 81 16 140/83 95 08/14/23 15:40 82 17 139/86 97 08/14/23 16:00 75 08/14/23 16:07 98.3 F 85 20 147/47 H 95 08/14/23 15:35 87 17 145/95 H 96 08/14/23 15:30 87 16 159/100 H 96 08/14/23 15:25 99 H 16 156/93 H 96 08/14/23 15:20 88 18 159/102 H 96 O2 Del Method 08/15/23 11:00 Room Air 08/15/23 12:00 08/15/23 08:00 08/15/23 11:05 Room Air 08/15/23 09:00 Room Air 08/15/23 08:32 Room Air 08/15/23 08:00 Room Air 08/15/23 07:42 Room Air 08/15/23 04:00 08/15/23 04:00 Room Air 08/15/23 06:20 Room Air 08/15/23 04:50 Room Air 08/15/23 03:00 Room Air 08/15/23 00:00 08/14/23 20:00 08/14/23 23:50 Room Air 08/14/23 20:00 Room Air 08/15/23 01:00 Room Air 08/14/23 23:00 Room Air 08/14/23 21:00 Room Air 08/14/23 22:25 Room Air 08/14/23 20:25 Room Air 08/14/23 19:25 Room Air 08/14/23 18:25 08/14/23 17:55 08/14/23 17:25 08/14/23 16:55 08/14/23 16:25 08/14/23 16:10 08/14/23 15:55 08/14/23 15:40 08/14/23 16:00 08/14/23 16:07 Room Air 08/14/23 15:35 08/14/23 15:30 08/14/23 15:25 08/14/23 15:20 Intake and Output 08/14/23 08/15/23 08/15/23 23:59 07:59 15:59 Intake Total 60 / 60 0 / 0 0 / 0 Output Total 1150 / 1300 200 / 200 0 / 200 Balance -1090 / -1240 -200 / -200 0 / -200 Intake: Intake, Oral Amount 60 / 60 0 / 0 0 / 0 Output: Output, Urine Amount 200 / 200 0 / 200 Output, Urine Amount (Catheter) 1150 / 1150 Warren 1150 / 1150 Other: Number of Unmeasured Voids 0 0 Number of Bowel Movements 1 Weight 91 kg 90.945 kg Patient Weight 08/15/23 23:59 Weight 90.945 kg Laboratory Results - last 24 hr 08/14/23 15:25: POC Glucose 316 H* 08/14/23 16:54: POC Glucose 326 H* 08/14/23 18:38: Urine Color Yellow, Urine Appearance Clear, Urine pH 5.5, Ur Specific [place] 1.010, Urine Protein Negative, Urine Glucose (UA) 2+, Urine Ketones Negative, Urine Blood 3+, Urine Nitrate Negative, Urine Bilirubin Negative, Urine Urobilinogen 0.2, Ur Leukocyte Esterase Negative, Urine RBC 20-50, Urine WBC None, Ur Squamous Epith Cells Occasional, Urine Bacteria None 08/14/23 19:57: POC Glucose 210 H 08/15/23 00:38: POC Glucose 145 H 08/15/23 06
--- NOTE | 2023-08-15 17:56 | PC.NURSE ---
pt ambulated around the unit independently. his gait is steady. did not complain of dizziness or chest pain. groin site is unchanged from this am. pt dislodged IV on accident. he does not want to get a shower @ this time. he reports he has voided 3x after kumari was removed this am.
[2023-08-16] VITALS: BP 112/63; PULSE 65; RESP 18; TEMP 36.8; O2SAT 95
[2023-08-16 04:00] VITALS: BMI 28.5
[2023-08-16 06:22] LABS: POC Glucose,Bedside 192 (70-110)
[2023-08-16 07:27] LABS: POC Glucose,Bedside 195 (70-110)
[2023-08-16 07:27] LABS: POC Glucose,Bedside 208 (70-110)
[2023-08-16 07:27] LABS: POC Glucose,Bedside 284 (70-110)
[2023-08-16 07:48] VITALS: BP 136/77; PULSE 70; RESP 16; TEMP 36.6; O2SAT 97
[2023-08-16 08:05] LABS: Basophils % 0.2 % (0.1-2.0); Eosinophils # 0.1 K/mm3 (0.0-0.4); Eosinophils % 0.5 % (0.1-12.0); Hematocrit 42.6 % (42.0-52.0); Hemoglobin 13.8 g/dL (14.1-18.0); Lymphocytes # 1.2 K/mm3 (0.7-4.5); Lymphocytes % 13.3 % (10-50); Mean Corpuscular HGB Conc 32.5 g/dL (31.8-35.4); Mean Corpuscular Hemoglobin 30.8 pg (27.0-31.2); Monocytes # 0.8 K/mm3 (0.1-1.0); Monocytes % 8.9 % (1.7-9.3); Neutrophils # 6.7 K/mm3 (1.8-7.8); Neutrophils % 77.1 % (37.0-80.0); Platelet Count 168 K/mm3 (142-424); Red Blood Count 4.49 M/mm3 (4.60-6.20); Red Cell Distribution Width 14.1 % (11.5-17.5); White Blood Count 8.7 K/mm3 (4.8-10.8)
[2023-08-16 08:15] LABS: Alanine Aminotransferase 40 U/L (12-78); Albumin Level 2.9 g/dl (3.5-5.0); Albumin/Globulin Ratio 1.2 (1.1-1.8); Alkaline Phosphatase 72 U/L (38-126); Anion Gap 9.4 mEq/L (5-15); Aspartate Amino Transferase 152 U/L (17-59); Bilirubin,Total 1.6 mg/dl (0.2-1.3); Blood Urea Nitrogen 19 mg/dl (9-20); Calcium 8.2 mg/dl (8.4-10.2); Carbon Dioxide 28 mmol/L (22.0-30.0); Chloride 99 mmol/L (98-107); Creatinine Clearance Estimated 69 mL/min (50-200); Estimated Glomerular Filt Rate 59 ml/min (>60); GFR (African American) 72 ML/MIN (>60); Globulin 2.5 g/dL (1.3-3.2); Glucose 177 mg/dl (74-100); Potassium 3.4 mmoL/L (3.5-5.1); Sodium 133 mmol/L (136-145); Total Protein,Serum 5.4 g/dl (6.3-8.2)
[2023-08-16 09:00] LABS: Magnesium 1.6 mg/dl (1.6-2.3)
--- NOTE | 2023-08-16 09:11 | EXP.DC.SUM ---
General Admission date:: 08/14/23 Discharge date: 08/16/23 HPI HPI HPI: 72 year old male presented to the ED via EMS for c/o CP. Upon ems arrival pt found to be hypertensive w/ BP 240/100 and EKG present with ST elevations. PMHX of CAGB, CAD, HLD, HTN, DM, GERD, BALJINDER and hypothyroidism. Last Cardiac cath was 03/31/22 with results of CAD w/ persevered EF. The pt states he has been having left sided CP that radiates down his left arm for three days. Pain is intermittent and is undescribable for patient. When asked to describe pain he states that it just hurts. Pain changed from intermittent to consistent tonight which promoted pt to call 911. He denies nausea or vomiting but reports heartburn. In route the EMS administered nitro and ASA. Upon arrival to the ED the pt's EKG demonstrating inferior infraction with st elevations in leads III and AVF. The pt was denying any chest pain and was in no acute distress. The ED physician consulted Dr. Chandra. The pt was started on a hep gtt and given a loading does of Brilinta and 10 mg of Labetalol. The ED physician consulted the hospitalist team for further medical management. The pt arrives to the step-down unit w/o of chest pain. His first troponin is 0.05. He will remain on the monitor tech and have a cardiology consult placed for this morning. Hospital Course Hospital Course Hospital Course: 72 year old male presented to the ED via EMS for c/o CP. Upon ems arrival pt found to be hypertensive w/ BP 240/100 and EKG present with ST elevations. The pt states he has been having left sided CP that radiates down his left arm for three days. Was initiated on heparin drip. Taken for left heart cath yesterday with placement of 4 stents. Had emergence reaction from anesthesia. Was confused after anesthesia. Slow to resume normal mentation. Back to baseline by day of discharge. Multiple discussions with family during admission, patient stable to go home but would recommend going home with family member. He is going to go stay with his daughter for a few days. Stable to discharge with home health ordered in the care of his daughter. Problems addressed as follows: STEMI -Intermittent CP for three days radiating into left arm -> woke up the night before admission with constant CP. EMS reports HTN of 240/100 w/ ST elevation on EKG. patient was started on aspirin and Brilinta along with heparin drip. Taken for left heart cath on 08/14. As he was awaking from sedation, developed confusion, combativeness, trauma to his arms. Initial concern for stroke given his acute altered mental status, CT of head was negative. Patient returned to baseline mentation by day of discharge. Continues to have some fatigue but is stable for discharge home. Continue aspirin 81 mg daily and Brilinta 90 mg twice daily. Close follow-up with cardiology DM -A1c 10.7 on admission. Was initiated on sliding scale insulin with fingerstick monitoring. Started on insulin glargine with gradual titration. Will discharge home with glargine at 35 units nightly. Encephalopathy: Secondary to medications and poor sleep. Continue with day night orientation, care was bundled. Patient improved to baseline mentation by discharge. Suspect this was a complication from fentanyl and Versed for sedation during heart cath, would recommend avoiding these medications or using them conservatively in the future. HTN Hyperlipidemia SLEEP APNEA -Continue Sitagliptin 100 mg daily for cardiac benefit and diabetes benefit. Intolerant of statins. Initiated ezetimibe due to intolerance. Resume carvedilol at half dose of 12.5 mg twice daily given patient's low blood pressure. Defer addition of GREG or ARB to cardiology in the outpatient setting given patient's previous intolerance to losartan Spent 30 minutes in discharge counseling, documentation, chart review, and direct care with patient. Exam Data for Last 24 hours Vital signs and Labs for Last 24 Hours: René
--- NOTE | 2023-08-16 13:15 | PC.NURSE ---
pt has been discahrged from the facility. took all medications home with him. extensive education provided by nursing regarding insulin and administration. pt and family voiced understanding and was able to do a return demonstration.
--- NOTE | 2023-08-16 13:18 | P.CONPHA_ITS ---
[employer] Insurance Specialist Discharge Med Technical Consultant: Ruy Guerrero has received discharge medication counseling on the following medications: -ASPIRIN (BLOOD THINNER, DAILY, BLEED/BRUISE RISK/APPEARANCE/LOCATION -CARVEDILOL (DOSE REDUCED FROM 25 MG BID TO 12.5 MG BID) -ZETIA (FOR CHOLESTEROL, DAILY) - PATIENT CANNOT TOLERATE STATINS. -BRILINTA (BLOOD THINNER, TWICE DAILY, SOB POSSIBLE, BLEED/BRUISE RISK/LOCATION/APPEARANCE, BUMP HEAD = GO TO ER TO RULE OUT HEAD BLEED) -NO GREG/ARB DUE TO NORMAL BP AND ALLERGY TO LOSARTAN -STOP HYDRALAZINE, FLUCONAZOLE, LANTUS 25 UNITS HS -START LANTUS 35 UNITS HS
--- NOTE | 2023-08-17 13:13 | CARE MANAGER ---
Called and spoke with patient regarding recent discharge. Patient stated that he is doing well and had no concerns at time of call. Patient gave verbal consent for order/clinical to be faxed to [facility].
--- NOTE | 2023-08-25 14:46 | P.PN_ITS ---
Subjective *Date: 08/25/23 *Time: 14:46
--- NOTE | 2023-08-25 14:46 | EXP.ACUTE.PN ---
Subjective *Date: 08/25/23 *Time: 14:46
== END 2023-08-16 13:05 | disposition home health service (06) | DRG 247 ==
LOC: ER 00:54 → 2ND 01:05
PROVIDERS: Internal Medicine; Nurse Practitioner Critical Care Medicine; Admitting Provider Internal Medicine Adolescent Medicine; Emergency Provider Emergency Medicine; PCP Family Medicine; Visit Provider Internal Medicine Adolescent Medicine
PROC: 027136Z Dilation of Coronary Artery, Two Arteries with Three Drug-eluting Intraluminal Devices, Percutaneous Approach (ICD-10-PCS; principal; 2023-08-14 11:30)
DX: I21.3 ST elevation (STEMI) myocardial infarction of unspecified site (principal); G93.49 Other encephalopathy; I25.110 Atherosclerotic heart disease of native coronary artery with unstable angina pectoris; Z95.1 Presence of aortocoronary bypass graft; Z95.5 Presence of coronary angioplasty implant and graft; I65.29 Occlusion and stenosis of unspecified carotid artery; E78.5 Hyperlipidemia, unspecified; I10 Essential (primary) hypertension; E03.9 Hypothyroidism, unspecified; G47.33 Obstructive sleep apnea (adult) (pediatric); I25.2 Old myocardial infarction; Z96.649 Presence of unspecified artificial hip joint; K21.9 Gastro-esophageal reflux disease without esophagitis; E11.9 Type 2 diabetes mellitus without complications; Z79.4 Long term (current) use of insulin
CPT/HCPCS: 36415; 70450; 71045; 80048; 80053; 80061; 81001; 82962; 83036; 83735; 84443; 84484; 85025; 85347; 85730; 92928; 92937; 93005; 93306; 93459; 99152; 99153; 99291; C1725; C1769; C1876; C1894; C9600; C9604; J1644; J2405; J2720; Q9967

== ENCOUNTER 2023-08-23 12:53 | Inpatient (IN) | payer MEDICARE, SELFPAY ==
[2023-08-23] VITALS (9 sets, daily range): BP systolic 112–138; BP diastolic 59–82; PULSE 80–106; RESP 17–24; TEMP -6.6–38.8; O2SAT 95–97; BMI 30.1; BMI 30.4
--- NOTE | 2023-08-23 12:53 | ECG_ITS ---
APPROVED REPORT Exam: Resting ECG HR:107 bpm ECG Measurements Heart Rate 107 AXES [place] 136 P 56 QRSd 145 QRS 270 QT 352 T 22 QTc 415 Conclusion SINUS TACHYCARDIA RIGHT AXIS DEVIATION [QRS AXIS > 100] RIGHT BUNDLE BRANCH BLOCK [120+ ms QRS DURATION, UPRIGHT V1, 40+ ms S IN I/aVL/V4/V5/V6] ABNORMAL ECG UNCONFIRMED REPORT Electronically signed by : Christopher James MD 08/24/2023 17:11:08
--- NOTE | 2023-08-23 13:04 | XR_ITS ---
PROCEDURE INFORMATION: Exam: XR Chest Exam date and time: 08/23/2023 1:26 PM Age: 72 years old Clinical indication: Prior surgery; Surgery date: 6+ months; Surgery type: Open heart 2009; Patient HX: Shortness of breath per patient. ; Additional info: Cp TECHNIQUE: Imaging protocol: Radiologic exam of the chest. Views: 1 view. COMPARISON: CR XR CHEST PORTABLE 08/14/2023 1:14 AM FINDINGS: Lungs: Subsegmental atelectasis vs airspace disease in the left lung base. No pulmonary edema. Pleural spaces: No large pleural effusion. No pneumothorax. Heart/Mediastinum: Cardiomediastinal silhouette is unchanged from prior exam, accounting for differences in technique. Bones/joints: No evidence of acute osseous abnormality. IMPRESSION: Subsegmental atelectasis vs airspace disease in the left lung base.
--- NOTE | 2023-08-23 13:15 | PC.NURSE ---
RAD at for CXR
--- NOTE | 2023-08-23 13:23 | PC.NURSE ---
Dr. Patel at BS for pt eval
[2023-08-23 13:26] LABS: Basophils % 0.4 % (0.1-2.0); Eosinophils % 0.2 % (0.1-12.0); Hematocrit 39.3 % (42.0-52.0); Hemoglobin 12.7 g/dL (14.1-18.0); Lymphocytes # 0.2 K/mm3 (0.7-4.5); Lymphocytes % 2.9 % (10-50); Mean Corpuscular HGB Conc 32.4 g/dL (31.8-35.4); Mean Corpuscular Hemoglobin 30.5 pg (27.0-31.2); Mean Corpuscular Volume 93.9 fl (80-94); Mean Platelet Volume 8.8 fl (7.4-10.4); Monocytes # 0.1 K/mm3 (0.1-1.0); Monocytes % 2.2 % (1.7-9.3); Neutrophils % 94.3 % (37.0-80.0); Platelet Count 217 K/mm3 (142-424); Red Blood Count 4.18 M/mm3 (4.60-6.20); Red Cell Distribution Width 13.9 % (11.5-17.5); White Blood Count 6.4 K/mm3 (4.8-10.8)
[2023-08-23 13:27] LABS: Chloride 102 mmol/L (98-107); Sodium 133 mmol/L (136-145)
[2023-08-23 13:28] LABS: Potassium 5.2 mmoL/L (3.5-5.1)
[2023-08-23 13:30] LABS: Alanine Aminotransferase 41 U/L (12-78); Albumin Level 3.1 g/dl (3.5-5.0); Alkaline Phosphatase 159 U/L (38-126); Anion Gap 14.2 mEq/L (5-15); Aspartate Amino Transferase 49 U/L (17-59); Bilirubin,Total 1.4 mg/dl (0.2-1.3); Blood Urea Nitrogen 25 mg/dl (9-20); Carbon Dioxide 22 mmol/L (22.0-30.0); Creatinine Clearance Estimated 58 mL/min (50-200); Estimated Glomerular Filt Rate 46 ml/min (>60); GFR (African American) 55 ML/MIN (>60); Glucose 231 mg/dl (74-100); Total Protein,Serum 6.1 g/dl (6.3-8.2)
[2023-08-23 13:38] LABS: MANUAL DIFFERENTIAL MANUAL DIFFERENTIAL (MANUAL DIFF)
[2023-08-23 13:40] LABS: NT Pro Brain Natriuretic Pep. 14600 pg/mL (0-125)
[2023-08-23 13:44] LABS: VBG Base Excess -3.3 mmol/L (-2.4-2.3); VBG HCO3 21.7 mmol/L (23-30); VBG Oxygen Saturation 68.4 % (50-70); VBG PCO2 37.1 mmol/L (35-51); VBG PH 7.39 mmol/L (7.31-7.41); VBG PO2 37.1 mmol/L (28-40); VBG Total CO2 22.8 mmol/L (23-27)
--- NOTE | 2023-08-23 13:46 | HMH.EDGENADL ---
Discharge Plan Disposition Patient Disposition: Admitted Chief Complaint: Shortness of Breath/Dyspnea Prescriptions Prescriptions: No Action carvedilol 25 mg tablet 12.5 mg PO BID 30 Days Qty: 30 3RF terazosin 5 mg capsule 10 mg PO DAILY Patient Comments: TAKE 2 CAPSULES EVERY DAY omeprazole 40 mg capsule,delayed release(DR/EC) 40 mg PO DAILY Patient Comments: TAKE 1 CAPSULE BY MOUTH DAILY Januvia 100 mg tablet 100 mg PO DAILY aspirin 81 mg tablet,chewable 81 mg PO DAILY (DME) pen needle, diabetic [Pen Needle] 31 gauge x 1/4 needle See Rx Instructions .ROUTE Rx Instructions: As directed ezetimibe 10 mg tablet 10 mg PO DAILY insulin glargine [Lantus Solostar U-100 Insulin] 100 unit/mL (3 mL) insulin pen 35 unit SQ HS Brilinta 90 mg tablet 90 mg PO BID (DME) FreeStyle Sridhar 2 Sensor Kit See Rx Instructions .ROUTE Rx Instructions: As directed (DME) FreeStyle Sridhar 2 [place] Misc See Rx Instructions .ROUTE Rx Instructions: As directed Referrals Follow up/Referrals: Herminio Jo MD [Primary Care Provider] - See instructions Clinical Impressions Clinical Impression: CHF (congestive heart failure), RAZIA (acute kidney injury), Non-ST elevation IA (NSTEMI), Cardiorenal syndrome Discharge ED Provider: Alfonso Patel General Adult HPI General Chief complaint: Shortness of Breath/Dyspnea Stated complaint: Weakness Time Seen by Provider: 08/23/23 12:57 Mode of Arrival: EMS Source of Information: Patient and EMS Limitations: No Limitations Description of Symptoms (Recalled from ER Triage Doc. by RN): 72 yo M presents to ED with c/o shortness of air and shakiness. pt reports symptoms ongoing since he got stents placed last thursday. but intermittently. today shortness of air is worse. History of Present Illness HPI narrative: 72-year-old male with history of hypertension, hyperlipidemia, CAD, diabetes, history of CABG and recent stenting on 08/14 presenting with shortness of breath. Patient states that this has been going on since he was released from the hospital 1 week prior to arrival. Got worse today, but has been intermittently waxing and waning. Patient states worse with exertion, not necessarily positional. Having chest pressure but no overt chest pains. Has not been vomiting, coughing, does not complain of any lower extremity swelling that is worse than usual. Patient states that he has not been urinating as frequently, but had blood in his urine once after catheterization. Also been having fevers as high as 102 ?F. Related Data Home Medications Medication Instructions Recorded Confirmed omeprazole 40 mg capsule,delayed 40 mg PO DAILY Acid Reflux 08/14/23 08/23/23 release sitagliptin phosphate 100 mg 100 mg PO DAILY Diabetes 08/14/23 08/23/23 tablet (Januvia) terazosin 5 mg capsule 10 mg PO DAILY High Blood Pressure 08/14/23 08/23/23 aspirin 81 mg chewable tablet 81 mg PO DAILY Heart Health 08/23/23 08/23/23 ezetimibe 10 mg tablet 10 mg PO DAILY Cholesterol 08/23/23 08/23/23 flash glucose scanning reader 08/23/23 08/23/23 (FreeStyle Sridhar 2 [place]) flash glucose sensor (FreeStyle 08/23/23 08/23/23 Sridhar 2 Sensor kit) insulin glargine 100 unit/mL (3 35 unit SQ HS Diabetes 08/23/23 08/23/23 mL) subcutaneous pen (Lantus Solostar U-100 Insulin) pen needle, diabetic 31 gauge x 08/23/23 08/23/23 1/4 (Pen Needle) ticagrelor 90 mg tablet (Brilinta) 90 mg PO BID Platelet Inhibitor 08/23/23 08/23/23 Previous Rx's Medication Instructions Recorded carvedilol 25 mg tablet 12.5 mg PO BID High Blood Pressure 08/17/23 30 days #30 tabs Allergies Allergy/AdvReac Type Severity Reaction Status Date / Time amlodipine [From [facility]] Allergy Unknown Unknown Verified 08/19/23 09:39 allergy reaction losartan Allergy Unknown Unknown Verified 08/19/23 09:39 allergy re
[2023-08-23 13:47] LABS: Troponin I 1.32 ng/ml (0.00-0.034)
--- NOTE | 2023-08-23 13:50 | PC.NURSE ---
lab called with a critical troponin of 1.32, DR. Patel made aware
--- NOTE | 2023-08-23 13:52 | ECG_ITS ---
APPROVED REPORT Exam: Resting ECG HR:98 bpm ECG Measurements Heart Rate 98 AXES [place] 158 P 48 QRSd 128 QRS -13 QT 405 T 9 QTc 460 Conclusion SINUS RHYTHM WITH OCCASIONAL SUPRAVENTRICULAR PREMATURE COMPLEXES INDETERMINATE AXIS RIGHT BUNDLE BRANCH BLOCK [120+ ms QRS DURATION, UPRIGHT V1, 40+ ms S IN I/aVL/V4/V5/V6] ABNORMAL ECG UNCONFIRMED REPORT Electronically signed by : Christopher James MD 08/24/2023 17:10:31
--- NOTE | 2023-08-23 14:01 | HMH.PHAINT1 ---
Pharmacy Intervention Comments: MEDICATION RECONCILIATION COMPLETED ON PATIENT USING EXTERNAL FILL HISTORY FROM PHARMACY AND DISCHARGE SUMMARY FROM PREVIOUS ADMISSION. -MEERA SAL, EDUD
[2023-08-23 14:03] LABS: Lactic Acid 1.8 mmol/L (0.7-2.1)
--- NOTE | 2023-08-23 14:08 | PC.NURSE ---
Dr. Patel s/w Dr Graf for admission.
[2023-08-23 14:11] LABS: Lymphocytes % 8 % (10-50); Monocytes % 2 % (2-9); Neutrophils % 90 % (42-76); RBC Morphology Normal; Total Cells Counted 100
[2023-08-23 14:12] LABS: Platelet Estimate Normal
--- NOTE | 2023-08-23 14:13 | PC.NURSE ---
Notified assembly room supervisor for admission: New onset CHF- Dr. Graf/Hospitalist
[2023-08-23 14:16] LABS: Coronavirus 19, PCR Not Detected (NotDetected); Influenza A, PCR Not Detected (NotDetected); Influenza B, PCR Not Detected (NotDetected)
--- NOTE | 2023-08-23 14:23 | PC.NURSE ---
Dr. Graf, hospitalist, at BS
[2023-08-23 14:29] LABS: Magnesium 1.4 mg/dl (1.6-2.3)
--- NOTE | 2023-08-23 14:41 | PC.NURSE ---
called report to jeronimo VENTURA on 2n floor and answered all questions
--- NOTE | 2023-08-23 14:44 | CT_ITS ---
PROCEDURE INFORMATION: Exam: CT Chest Without Contrast; Diagnostic Exam date and time: 08/23/2023 4:04 PM Age: 72 years old Clinical indication: Fever; Additional info: Abn cxr TECHNIQUE: Imaging protocol: Diagnostic computed tomography of the chest without contrast. Radiation optimization: All CT scans at this facility use at least one of these dose optimization techniques: automated exposure control; mA and/or kV adjustment per patient size (includes targeted exams where dose is matched to clinical indication); or iterative reconstruction. REPORTING DATA: Count of CT and Cardiac NM exams in prior 12 months: This patient has received [address] and 0 known cardiac nuclear medicine studies in the 12 months prior to the current study. COMPARISON: CR XR CHEST PORTABLE 08/23/2023 1:26 PM FINDINGS: Trachea: Central airways are clear. Lungs: Subsegmental atelectasis in the left lung base. No evidence of acute airspace disease. No pulmonary edema. Pleural spaces: Trace left pleural effusion. No right pleural effusion. No pneumothorax. Heart: No cardiomegaly. No significant pericardial effusion. Coronary arteries: Calcific coronary artery disease with post-operative changes of prior CABG. Lymph nodes: Calcified lymph nodes consistent with chronic sequelae of prior granulomatous disease. No pathologically enlarged lymph nodes by CT criteria. Vasculature: Aorta is normal in caliber. Diaphragm: Small hiatal hernia. Kidneys and ureters: Complex mixed density cystic lesion in the left kidney, incompletely characterized. Bones/joints: Prior median sternotomy with intact sternotomy wires. No evidence of acute osseous abnormality. Soft tissues: Unremarkable. IMPRESSION: 1. No evidence of pneumonia. 2. Trace left pleural effusion. 3. Complex mixed density cystic lesion in the left kidney, incompletely characterized. Please see comments below for current guidelines. 4. Small hiatal hernia. 5. Additional non-acute ancillary findings are detailed above. COMMENTS: Current ACR guidelines recommend non-emergent MRI or CT tailored to renal mass protocol without and with contrast. MRI is preferred for masses under 1.5 cm. (Reference: Malik) REFERENCES: Malik LAYNE, Management of the Incidental Renal Mass on CT: A White Paper of the ACR Incidental Findings Committee, JACR 2018.
--- NOTE | 2023-08-23 14:53 | EXP.HP ---
History of Present Illness *Admission Date: 08/23/23 *Reason for visit:: Chief complaint: Shortness of air *History of present illness: This is a 72-year-old male who presents to [facility] emergency department with concerns of shortness of air over 48 hours. His past medical history is significant for coronary artery disease with recent left heart cath and stent deployment on August 14, 2023. Previous coronary bypass grafting in 2008. Uncontrolled diabetes with recent hemoglobin A1c 10.7%. Obstructive sleep apnea noncompliant with NIPPV therapy at home. The patient reports a recent evaluation with his PCP and was doing better but over the last 48 hours he has identified shortness of air initially occurring with exertion now occurring at rest. He reports no associated chest pain, palpitations or confusion. He reports subjective fever and chills but no hemoptysis or productive cough. He recalls no sick contacts. He reports that shortness of air has increased with no identified increasing lower extremity edema. In the ED his CBC identifies a normal white blood cell count, low sodium and elevated potassium and creatinine 1.5 (baseline 0.9). His magnesium is 1.4?initial troponin is positive at 1.32. His BNP is greater than 14,000. His ECG identifies no ST-T changes but does identify right bundle branch block. A recent inpatient echo identified an EF 55%. His chest x-ray is concerning for left lower lobe pneumonia. [facility] Medical History (Updated 08/23/23 @ 15:21 by Shaheen Graf MD) CAD (coronary artery disease) Carotid artery stenosis Diabetes mellitus Gastroesophageal reflux disease HLD (hyperlipidemia) HTN (hypertension) Sleep apnea Surgical History (Updated 08/20/23 @ 00:11 by Taylor Michael) H/O heart artery stent History of hip replacement History of surgery on arm Hx of CABG Family History Sister Cancer Coronary artery disease Diabetes Brother Cancer Coronary artery disease Diabetes Father Diabetes Social History Smoking Status: Never smoker second hand exposure: No alcohol intake: never substance use type: denies use current occupational status: employed Travel in the last 8 weeks: None household members: children housing: house current occupational exposures/hazards: No caffeine: Yes Review of Systems Review of Systems Review of systems:: pertinent systems reviewed and negative unless documented below Constitutional Constitutional: Reports chills and Reports fever(s) *Cardiovascular Cardiovascular: Denies chest pain, Denies chest pain at rest, Reports dyspnea, Reports dyspnea on exertion, Denies edema and Denies palpitations *Respiratory Respiratory: Denies cough, Reports dyspnea, Reports dyspnea on exertion, Denies hemoptysis and Denies wheezing *Gastrointestinal Gastrointestinal: Denies loose stools, Denies nausea and Denies vomiting *Genitourinary Genitourinary: Denies difficulty urinating *Musculoskeletal Musculoskeletal: Denies myalgias *Neurologic Neurologic: Denies confusion Psychiatric Psychiatric: Denies confusion Endocrine Endocrine: Denies palpitations Allergic/Immunologic Allergic/Immunologic: Denies wheezing Meds Home Medications and Allergies Home Medications Medication Instructions Recorded Confirmed Type omeprazole 40 mg capsule,delayed 40 mg PO DAILY Acid Reflux 08/14/23 08/23/23 History release sitagliptin phosphate 100 mg 100 mg PO DAILY Diabetes 08/14/23 08/23/23 History tablet (Eduvruba) terazosin 5 mg capsule 10 mg PO DAILY High Blood Pressure 08/14/23 08/23/23 History carvedilol 25 mg tablet 12.5 mg PO BID High Blood Pressure 08/17/23 08/23/23 Rx 30 days #30 tabs aspirin 81 mg chewable tablet 81 mg PO DAILY Heart Health 08/23/23 08/23/23 History ezetimibe 10 mg tablet 10 mg PO DAILY Cholesterol 08/23/23 1
--- NOTE | 2023-08-23 15:53 | PC.NURSE ---
daughter stated that she had only been giving patient 5 mg terazosin daily, clarified with Dr. Graf that he wanted 10 mg of terazosin given daily and he confirmed that he did want 10 mg of terazosin given daily
[2023-08-23 16:55] LABS: POC Glucose,Bedside 275 (70-110)
[2023-08-23 17:19] LABS: Troponin I 1.34 ng/ml (0.00-0.034)
--- NOTE | 2023-08-23 18:11 | PC.NURSE ---
Patient admitted from ER
[2023-08-23 19:49] LABS: Troponin I 1.21 ng/ml (0.00-0.034)
[2023-08-23 20:24] LABS: POC Glucose,Bedside 256 (70-110)
[2023-08-23 22:02] LABS: POC Glucose,Bedside 241 (70-110)
--- NOTE | 2023-08-23 22:14 | ECG_ITS ---
APPROVED REPORT Exam: Resting ECG HR:67 bpm ECG Measurements Heart Rate 67 AXES ND 175 P 51 QRSd 152 QRS -30 QT 424 T 22 QTc 440 Conclusion SINUS RHYTHM INDETERMINATE AXIS RIGHT BUNDLE BRANCH BLOCK [120+ ms QRS DURATION, UPRIGHT V1, 40+ ms S IN I/aVL/V4/V5/V6] ABNORMAL ECG UNCONFIRMED REPORT Electronically signed by : Christopher James MD 08/24/2023 17:09:31
[2023-08-24] VITALS (9 sets, daily range): BP systolic 100–143; BP diastolic 59–70; PULSE 50–72; RESP 16–18; TEMP 36.4–37; O2SAT 95–99; BMI 30.4
[2023-08-24 00:47] LABS: Appearance,Urine CLEAR (Clear); Bilirubin,Urine Negative (Negative); Blood, Urine Negative (Negative); Color,Urine YELLOW (Yellow); Glucose,Urine (UA) Negative (Negative); Ketones,Urine Negative (Negative); Leukocyte Esterase,Urine TRACE (Negative); Microscopic, Urine URINE MICROSCOPIC (MICROSCOPIC); Nitrate,Urine Negative (Negative); PH,Urine 5.5 (5.0-8.5); Protein,Urine Negative (Negative); Specific Gravity, Urine 1.015 (1.005-1.030); Urobilinogen,Urine 0.2 EU/dl (0.2)
[2023-08-24 01:02] LABS: Bacteria,Urine 1+ /lpf; Hyaline Casts,Urine Occasional #/lpf (0); Squamous Epithelial Cell,Urine Occasional #/hpf (0-5); WBC,Urine 20-50 #/hpf (0-3)
[2023-08-24 05:26] LABS: POC Glucose,Bedside 196 (70-110)
[2023-08-24 06:14] LABS: Basophils % 0.1 % (0.1-2.0); Eosinophils % 0.1 % (0.1-12.0); Hematocrit 36.8 % (42.0-52.0); Hemoglobin 11.9 g/dL (14.1-18.0); Lymphocytes # 0.6 K/mm3 (0.7-4.5); Lymphocytes % 5.9 % (10-50); Mean Corpuscular HGB Conc 32.2 g/dL (31.8-35.4); Mean Corpuscular Hemoglobin 30.8 pg (27.0-31.2); Mean Corpuscular Volume 95.7 fl (80-94); Mean Platelet Volume 8.4 fl (7.4-10.4); Monocytes # 0.5 K/mm3 (0.1-1.0); Monocytes % 4.9 % (1.7-9.3); Neutrophils # 8.7 K/mm3 (1.8-7.8); Platelet Count 213 K/mm3 (142-424); Red Blood Count 3.85 M/mm3 (4.60-6.20); White Blood Count 9.8 K/mm3 (4.8-10.8)
[2023-08-24 06:18] LABS: Chloride 101 mmol/L (98-107); INR 1.11 (0.9-1.1); Potassium 3.8 mmoL/L (3.5-5.1); Prothrombin Time 11.9 seconds (10.1-12.5); Sodium 132 mmol/L (136-145)
[2023-08-24 06:20] LABS: Blood Urea Nitrogen 31 mg/dl (9-20); Creatinine Clearance Estimated 47 mL/min (50-200); Estimated Glomerular Filt Rate 35 ml/min (>60); GFR (African American) 42 ML/MIN (>60)
[2023-08-24 06:21] LABS: Alanine Aminotransferase 33 U/L (12-78); Albumin Level 2.6 g/dl (3.5-5.0); Alkaline Phosphatase 141 U/L (38-126); Anion Gap 10.8 mEq/L (5-15); Aspartate Amino Transferase 39 U/L (17-59); Bilirubin,Total 0.5 mg/dl (0.2-1.3); Calcium 7.5 mg/dl (8.4-10.2); Carbon Dioxide 24 mmol/L (22.0-30.0); Globulin 2.6 g/dL (1.3-3.2); Glucose 193 mg/dl (74-100); Total Protein,Serum 5.2 g/dl (6.3-8.2)
[2023-08-24 06:22] LABS: MANUAL DIFFERENTIAL MANUAL DIFFERENTIAL (MANUAL DIFF)
[2023-08-24 06:39] LABS: Lymphocytes % 8 % (10-50); Neutrophils % 89 % (42-76); Total Cells Counted 100
[2023-08-24 06:40] LABS: RBC Morphology Normal
[2023-08-24 06:41] LABS: Platelet Estimate Normal
[2023-08-24 06:51] LABS: Free T4 (Free Thyroxine) 1.26 ng/dl (0.78-2.19)
--- NOTE | 2023-08-24 08:00 | CA_ITS ---
APPROVED REPORT EXAM: Limited 2D Echocardiogram Savings Counselor: Viviana Siddiqui CRT Ht: 5 ft 10 in Wt: 210lbs BSA: 2.13 BP: 125/69 mmHg Indications: Chest Pain, Congestive Heart Failure, Shortness of Breath, Hyperlipidemia, Hypertension/HDD, Stemi, stent, GERD, BALJINDER, CABG 2D Dimensions LVOT 1.62 cm (M/F) 1.5-2.5 LA Volume 34.50 mL LA Volume Index 15.80 mL/m2 (M/F) 16-34 M-Mode Dimensions RVDd 3.17 cm (0.9-2.6) LA Diam 3.83 cm (1.9-4.0) LVDd 4.96 cm (3.5-5.7) Ao Diam 4.20 cm (2.0-3.7) LVDs 3.50 cm (3.5-5.7) IVSd 2.07 cm (0.6-1.1) PWd 0.75 cm (0.6-1.1) EF (Teich) 56.20% FS 29.40% EDV (Teich) 116.10 mL ESV (Teich) 50.90 mL Other Information Study Quality: Fair Conclusion This is a limited TTE to evaluate for LVEF. Limited windows were obtained. Grossly, the left ventricle appears normal in size with low normal LV systolic function. There is moderate hypokinesis of the inferior, inferoseptal, and inferolateral LV longoria. LVEF is 50%. The right ventricle is normal in size and systolic function. The mitral valve and aortic valve open well. No evidence of pericardial effusions. Electronically signed by : Kristy Soriano MD 08/24/2023 10:30:50
[2023-08-24 08:03] LABS: Magnesium 1.9 mg/dl (1.6-2.3)
[2023-08-24 08:35] LABS: Thyroid Stimulating Hormone 3.21 uIU/mL (0.465-4.68)
--- NOTE | 2023-08-24 10:06 | EXP.ACUTE.PN ---
Subjective *Date: 08/24/23 *Time: 13:42 Interval history: Patient feeling better this morning. No chills or fever this morning. Denies any chest pain. Does complain of some shortness of breath after taking Brilinta. Family at bedside. No nausea, vomiting, diarrhea. Stable on room air. Medical Exam Vital signs and Labs for Last 24 Hours: Vital Signs Temp Pulse Pulse Resp BP BP Pulse Ox 08/24/23 08:00 60 08/24/23 07:59 97.6 F 63 18 107/65 L 99 08/24/23 06:58 08/24/23 05:00 08/24/23 03:00 08/24/23 04:00 50 L 08/24/23 04:00 98.4 F 61 16 101/59 L 98 08/24/23 00:00 60 08/24/23 01:00 08/24/23 00:00 98.2 F 62 16 101/61 L 99 08/23/23 23:00 08/23/23 21:00 08/23/23 20:00 80 08/23/23 20:00 101.8 F H 81 17 112/63 95 08/23/23 15:54 80 08/23/23 15:06 99.0 F 92 H 18 117/60 96 08/23/23 14:57 20 F L 101 H 20 121/78 08/23/23 14:54 98.0 F 103 H 20 125/68 08/23/23 14:30 99 H 24 125/68 97 08/23/23 14:00 103 H 22 120/59 L 95 08/23/23 13:31 23 125/69 08/23/23 12:56 99.6 F 106 H 23 138/82 97 O2 Del Method 08/24/23 08:00 08/24/23 07:59 Room Air 08/24/23 06:58 Room Air 08/24/23 05:00 Room Air 08/24/23 03:00 Room Air 08/24/23 04:00 08/24/23 04:00 Room Air 08/24/23 00:00 08/24/23 01:00 Room Air 08/24/23 00:00 Room Air 08/23/23 23:00 Room Air 08/23/23 21:00 Room Air 08/23/23 20:00 08/23/23 20:00 Room Air 08/23/23 15:54 08/23/23 15:06 Room Air 08/23/23 14:57 Room Air 08/23/23 14:54 Room Air 08/23/23 14:30 08/23/23 14:00 08/23/23 13:31 08/23/23 12:56 Intake and Output 08/23/23 08/24/23 08/24/23 23:59 07:59 15:59 Intake Total 240 / 600 360 / 360 Output Total 760 / 960 850 / 850 Balance -520 / -360 -490 / -490 Intake: Intake, Oral Amount 240 / 600 360 / 360 Output: Output, Urine Amount 760 / 960 850 / 850 Other: Number of Unmeasured Voids 0 1 Number of Bowel Movements 1 Weight 96.388 kg Patient Weight 08/24/23 23:59 Weight 96.388 kg Laboratory Results - last 24 hr 08/23/23 13:13: WBC 6.4, RBC 4.18 L, Hgb 12.7 L, Hct 39.3 L, MCV 93.9, MCH 30.5, MCHC 32.4, RDW 13.9, Plt Count 217, MPV 8.8, Neut % (Auto) 94.3 H, Lymph % (Auto) 2.9 L, [place] % (Auto) 2.2, Eos % (Auto) 0.2, Baso % (Auto) 0.4, Neut # (Auto) 6.0, Lymph # (Auto) 0.2 L, [place] # (Auto) 0.1, Eos # (Auto) 0.0, Baso # (Auto) 0.0, Total Counted 100, Neutrophils % (Manual) 90 H, Lymphocytes % (Manual) 8 L, Monocytes % (Manual) 2, Platelet Estimate Normal, RBC Morphology Normal, Sodium 133 L, Potassium 5.2 H, Chloride 102, Carbon Dioxide 22, Anion Gap 14.2, BUN 25 H, Creatinine 1.50 H, Estimated Creat Clear 58, Estimated GFR 46 L, Est GFR ( Amer) 55 L, Glucose 231 H, Calcium 8.0 L, Magnesium 1.4 L, Total Bilirubin 1.4 H, AST 49, ALT 41, Alkaline Phosphatase 159 H, Troponin I 1.32 H, NT-Pro-B Natriuret Pep 23583 H, Total Protein 6.1 L, Albumin 3.1 L, Globulin 3.0, Albumin/Globulin Ratio 1.0 L 08/23/23 13:34: VBG pH 7.39, VBG pCO2 37.1, VBG pO2 37.1, VBG HCO3 21.7 L, VBG Total CO2 22.8 L, VBG O2 Saturation 68.4, VBG Base Excess -3.3 L 08/23/23 13:45: Lactate 1.8 08/23/23 14:10: SARS-CoV-2 (PCR) Not detected, Influenza A Untype (PCR) Not detected, Influenza Type B (PCR) Not detected 08/23/23 16:35: Troponin I 1.34 H 08/23/23 16:46: POC Glucose 275 H 08/23/23 19:25: Troponin I 1.21 H 08/23/23 20:09: POC Glucose 256 H 08/23/23 21:52: POC Glucose 241 H 08/24/23 00:30: Urine Color Yellow, Urine Appearance Clear, Urine pH 5.5, Ur Specific [place] 1.015, Urine Protein Negative, Urine Glucose (UA) Negative, Urine Ketones Negative, Urine Blood Negative, Urine Nitrate Negative, Urine Bilirubin Negative, Urine Urobilinogen 0.2, Ur Leukocyte Esterase Trace, Urine RBC None, Urine WBC 20-50, Ur Squamous Epith Cells Occasional, Urine Bacteria 1+, Hyaline Casts [place]
--- NOTE | 2023-08-24 10:48 | CT_ITS ---
FINAL REPORT TECHNIQUE: Axial images through the abdomen and pelvis were performed without contrast.This study was performed with techniques to keep radiation doses as low as reasonably achievable, (ALARA). Individualized dose reduction techniques using automated exposure control or adjustment of mA and/or kV according to the patient's size were employed. CLINICAL HISTORY: abd pain, sepsis FINDINGS: ABDOMEN: The lung bases demonstrate small left pleural effusion and mild bibasilar atelectasis. The heart size is normal. Limited images of the liver are unremarkable. The spleen is normal. No adrenal mass is identified. The aorta is normal in caliber. There is no significant free fluid or adenopathy. Multiple bilateral renal masses are seen some of which are not simple cysts. There are 2 left renal masses which may represent hemorrhagic cysts versus neoplasm. Recommend mid renal mass protocol CT for further evaluation. There is no nephrolithiasis. There is no hydronephrosis. PELVIS: The appendix is not identified. The urinary bladder is unremarkable. There is no significant free fluid or adenopathy. IMPRESSION: No hydronephrosis or nephrolithiasis. Renal masses which may represent hemorrhagic cysts versus neoplasm. Recommend renal mass protocol CT for further evaluation. Reviewed, Interpreted and Dictated by Adi Shafer III, MD Transcribed by Che Amaro Authenticated and [facility]
--- NOTE | 2023-08-24 11:18 | EXP.CARD.CON ---
History of Present Illness History of Present Illness Consult date: 08/24/23 Requesting physician: Shaheen Graf Consult reason: congestive heart failure Chief complaint: SOA History of present illness: 72-year-old white male with history of CAD status post CABG in 2008, drug-eluting stent 2018, LHC 2021 showing patent stents, nonobstructive dz. He presented here last month with altered mental status blood pressure 240 and A1c of [address] elevations and chest pain radiating to his left arm. He underwent left heart cath and had stenting of saphenous vein graft to diagonal and proximal RCA. His echo was normal at the time. He was started on Brilinta and discharged home in stable condition. He presented yesterday complaining of worsening episodic severe shortness of breath with subjective fever chills and weakness but no cough, wheeze, or CP. His admission white blood cell count was normal, creatinine 1.5 with a baseline of 0.9. Chest x-ray initially showed possible left lower lobe pneumonia and he had a proBNP of 14,000. He was admitted by Hospitalist with diagnosis of heart failure and pneumonia. Follow-up CT chest shows no pneumonia or edema. His creatinine is up to 1.9 and blood cultures have returned positive for E. coli. Patient and his family report he has significant shortness of breath which is acutely worse following each dose of Brilinta and they would like to change to alternative. He also admits some epigastric and LLQ pain with abdominal distension but no change in bowel habits. [facility] Disclaimer: The information contained in this section may have been updated after the patient was seen, as this information can be updated by other users. Medical History (Updated 08/24/23 @ 11:28 by YOU Quezada) CAD (coronary artery disease) Carotid artery stenosis Diabetes mellitus Gastroesophageal reflux disease HLD (hyperlipidemia) HTN (hypertension) Sleep apnea Surgical History H/O heart artery stent History of hip replacement History of surgery on arm Hx of CABG Family History Sister Cancer Coronary artery disease Diabetes Brother Cancer Coronary artery disease Diabetes Father Diabetes Social History (Updated 08/23/23 @ 15:12 by Radhika Brand, AUDREY) Smoking Status: Never smoker second hand exposure: No alcohol intake: never substance use type: denies use current occupational status: employed Travel in the last 8 weeks: None household members: children housing: house current occupational exposures/hazards: No caffeine: Yes Review of Systems Constitutional Constitutional: Reports fatigue, Reports fever(s) and Reports weakness Eyes Eyes: Denies loss of vision ENT Ears, Nose, Mouth, and Throat: Denies hearing loss *Cardiovascular Cardiovascular: Denies chest pain and Reports dyspnea *Respiratory Respiratory: Denies cough and Reports dyspnea *Gastrointestinal Gastrointestinal: Reports abdominal pain, Denies change in stool character, Denies nausea and Denies vomiting *Genitourinary Genitourinary: Denies difficulty urinating *Musculoskeletal Musculoskeletal: Denies muscle weakness Integumentary/Breasts Skin/Breast: Denies changing lesions *Neurologic Neurologic: Reports confusion, Denies loss of vision and Reports weakness Psychiatric Psychiatric: Reports confusion Endocrine Endocrine: Reports fatigue Exam Data for Last 24 hours Vital signs and Labs for Last 24 Hours: Temp Pulse Resp BP Pulse Ox O2 Del Method 97.6 F 60 18 107/65 L 99 Room Air 08/24/23 07:59 08/24/23 08:00 08/24/23 07:59 08/24/23 07:59 08/24/23 07:59 08/24/23 09:00 Laboratory Results - last 24 hr 08/23/23 13:13: WBC 6.4, RBC 4.18 L, Hgb 12.7 L, Hct 39.3 L, MCV 93.9, MCH 30.5, MCHC 32.4, RDW 13.9, Plt Count 217, MPV 8.8, Neut % (Auto) 94.3 H, Lymph % (Auto) 2.9 L, [place] % (Auto) 2
[2023-08-24 11:43] LABS: POC Glucose,Bedside 213 (70-110)
[2023-08-24 16:33] LABS: POC Glucose,Bedside 172 (70-110)
[2023-08-24 20:24] LABS: POC Glucose,Bedside 280 (70-110)
--- NOTE | 2023-08-24 23:57 | PC.NURSE ---
lab reported blood culture + results, name and verified, aerobic bottle gram- bacilli, notified ANAMARIA Cevallos, no new orders.
[2023-08-25] VITALS (11 sets, daily range): BP systolic 127–140; BP diastolic 52–78; PULSE 70–81; RESP 17–19; TEMP 36.3–37.6; O2SAT 95–98; BMI 30.4
[2023-08-25 06:31] LABS: POC Glucose,Bedside 217 (70-110)
[2023-08-25 06:40] LABS: Basophils % 0.1 % (0.1-2.0); Eosinophils % 0.2 % (0.1-12.0); Hemoglobin 11.9 g/dL (14.1-18.0); Lymphocytes # 0.9 K/mm3 (0.7-4.5); Lymphocytes % 6.8 % (10-50); Mean Corpuscular HGB Conc 32.2 g/dL (31.8-35.4); Mean Corpuscular Hemoglobin 30.5 pg (27.0-31.2); Mean Corpuscular Volume 94.8 fl (80-94); Mean Platelet Volume 7.8 fl (7.4-10.4); Monocytes # 0.7 K/mm3 (0.1-1.0); Monocytes % 5.3 % (1.7-9.3); Neutrophils # 11.2 K/mm3 (1.8-7.8); Neutrophils % 87.6 % (37.0-80.0); Platelet Count 241 K/mm3 (142-424); White Blood Count 12.8 K/mm3 (4.8-10.8)
[2023-08-25 06:46] LABS: Chloride 106 mmol/L (98-107); Potassium 3.7 mmoL/L (3.5-5.1); Sodium 135 mmol/L (136-145)
[2023-08-25 06:49] LABS: Alanine Aminotransferase 31 U/L (12-78); Albumin Level 2.6 g/dl (3.5-5.0); Albumin/Globulin Ratio 0.9 (1.1-1.8); Alkaline Phosphatase 166 U/L (38-126); Anion Gap 9.7 mEq/L (5-15); Aspartate Amino Transferase 31 U/L (17-59); Bilirubin,Total 0.2 mg/dl (0.2-1.3); Blood Urea Nitrogen 30 mg/dl (9-20); Carbon Dioxide 23 mmol/L (22.0-30.0); Creatinine Clearance Estimated 68 mL/min (50-200); Estimated Glomerular Filt Rate 54 ml/min (>60); GFR (African American) 65 ML/MIN (>60); Globulin 2.8 g/dL (1.3-3.2); MANUAL DIFFERENTIAL MANUAL DIFFERENTIAL (MANUAL DIFF); Total Protein,Serum 5.4 g/dl (6.3-8.2)
[2023-08-25 06:50] LABS: Calcium 7.9 mg/dl (8.4-10.2); Glucose 221 mg/dl (74-100)
[2023-08-25 07:07] LABS: Magnesium 1.9 mg/dl (1.6-2.3)
[2023-08-25 07:38] LABS: Lymphocytes % 1 % (10-50); Neutrophils % 89 % (42-76); Total Cells Counted 100
[2023-08-25 07:42] LABS: RBC Morphology Normal
[2023-08-25 07:43] LABS: Platelet Estimate Normal
--- NOTE | 2023-08-25 10:30 | EXP.CARD.PN ---
Subjective Subjective Date: 08/25/23 Time: 10:30 Principal diagnosis: Sepsis Interval history: Urine and blood cultures both confirm E. coli. CT abdomen revealed 2 left renal masses approximately 3 to 4 cm. This was noncontrast CT. Patient aware of results. He has ongoing mild reproducible left lower quadrant pain. White blood cell count up to 12.9, hemoglobin stable. Exam Data for Last 24 hours Vital signs and Labs for Last 24 Hours: Temp Pulse Resp BP Pulse Ox O2 Del Method 97.4 F L 80 18 127/75 96 Room Air 08/25/23 07:20 08/25/23 08:36 08/25/23 07:20 08/25/23 07:20 08/25/23 08:00 08/25/23 09:44 Laboratory Results - last 24 hr 08/24/23 00:30: Urine Color Yellow, Urine Appearance Clear, Urine pH 5.5, Ur Specific [place] 1.015, Urine Protein Negative, Urine Glucose (UA) Negative, Urine Ketones Negative, Urine Blood Negative, Urine Nitrate Negative, Urine Bilirubin Negative, Urine Urobilinogen 0.2, Ur Leukocyte Esterase Trace, Urine RBC None, Urine WBC 20-50, Ur Squamous Epith Cells Occasional, Urine Bacteria 1+, Hyaline Casts Occasional 08/24/23 11:35: POC Glucose 213 H 08/24/23 16:24: POC Glucose 172 H 08/24/23 20:10: POC Glucose 280 H 08/25/23 06:07: POC Glucose 217 H 08/25/23 06:17: WBC 12.8 H D, RBC 3.90 L, Hgb 11.9 L, Hct 37.0 L, MCV 94.8 H, MCH 30.5, MCHC 32.2, RDW 14.0, Plt Count 241, MPV 7.8, Neut % (Auto) 87.6 H, Lymph % (Auto) 6.8 L, [place] % (Auto) 5.3, Eos % (Auto) 0.2, Baso % (Auto) 0.1, Neut # (Auto) 11.2 H, Lymph # (Auto) 0.9, [place] # (Auto) 0.7, Eos # (Auto) 0.0, Baso # (Auto) 0.0, Total Counted 100, Neutrophils % (Manual) 89 H, Band Neutrophils % 10.0 H, Lymphocytes % (Manual) 1 L, Platelet Estimate Normal, RBC Morphology Normal, Sodium 135 L, Potassium 3.7, Chloride 106, Carbon Dioxide 23, Anion Gap 9.7, BUN 30 H, Creatinine 1.30 H D, Estimated Creat Clear 68, Estimated GFR 54 L, Est GFR ( Amer) 65 D, Glucose 221 H, Calcium 7.9 L, Magnesium 1.9, Total Bilirubin 0.2, AST 31, ALT 31, Alkaline Phosphatase 166 H, Total Protein 5.4 L, Albumin 2.6 L, Globulin 2.8, Albumin/Globulin Ratio 0.9 L I & O for Last 24 hours: Intake & Output 08/22/23 08/23/23 08/24/23 08/25/23 23:59 23:59 23:59 23:59 Intake Total 240 / 600 630 / 870 530 / 530 Output Total 760 / 960 850 / 1150 600 / 600 Balance -520 / -360 -220 / -280 -70 / -70 Weight 212 lb 8 oz 212 lb 7.986 oz 212 lb 7.986 oz Microbiology Reports for the Last 24 Hours: Microbiology 08/23/23 13:34 Blood Blood Culture - Preliminary Gram Negative Rods 08/23/23 13:34 Blood Blood Culture - Preliminary Gram Negative Rods 08/24/23 00:30 Urine,Clean Catch Urine Culture - Preliminary Gram Positive Cocci Constitutional Constitutional: no acute distress and cooperative *Routine HEENT Exam Eye: Present PERRL *Routine Respiratory Exam Respiratory: Present CTA bilaterally; Absent accessory muscle use, wheezes or crackles *Routine Cardiovascular Exam Cardiovascular: Present RRR, Normal S1 and Normal S2; Absent murmur, gallop or rubs *Routine Abdominal Exam Abdominal: Present soft and tenderness (Mild left upper quadrant left lower quadrant tenderness, slightly distended) *Routine Extremities Exam Extremities: Present pulses intact; Absent cyanosis or edema *Routine Skin Exam Skin: Present intact; Absent erythema or wounds *Routine Neurological Exam Neurological: Present alert and oriented X3 Routine Psychiatric Exam Psychiatric: Present cooperative Progress Note: A&P Assessment and plan (1) Sepsis: Status: Acute (2) E coli bacteremia: Status: Acute (3) RAZIA (acute kidney injury): Status: Acute (4) Acute on chronic heart failure with preserved ejection fraction (HFpEF): Status: Acute (5) Myocardial injury: Status: Acute (6) CAD (coronary artery disease): Status: Chronic (7) Diabetes mellitus: Status: [place]
--- NOTE | 2023-08-25 10:37 | CT_ITS ---
FINAL REPORT CLINICAL HISTORY: 2 left renal masses noted on noncontrast CT COMPARISON: Noncontrast exam from the previous day FINDINGS: CT OF THE ABDOMEN AND PELVIS WITH CONTRAST Axial CT images of the abdomen and pelvis were obtained after the administration of intravenous contrast. Coronal reformatted images were also obtained and reviewed.This study was performed with techniques to keep radiation doses as low as reasonably achievable (ALARA). Individualized dose reduction techniques using automated exposure control or adjustment of mA and/or kV according to the patient's size were employed. Abdomen: There is a small left pleural effusion. There is mild bibasilar atelectasis. The heart is normal in size. The liver has an unremarkable appearance, without evidence of mass or biliary ductal dilatation. The spleen is unremarkable. No adrenal mass is present. The pancreas has an unremarkable appearance. There are multiple bilateral renal masses some of which have an appearance consistent with simple cysts. There is a 23 mm posterior right mid kidney and 2 masses in the lateral left kidney measuring 44 and 37 mm that do not appear to represent simple cysts. These demonstrate no enhancement and are felt to represent complicated (Bosniak category 2) cysts. There is moderate vascular calcification. There is no free fluid or adenopathy. Pelvis: The appendix is normal. There is streak artifact from left hip arthroplasty. The urinary bladder is unremarkable. No inflammatory process is seen. There is no evidence of mass or adenopathy. There is no evidence of bowel obstruction. IMPRESSION: Bilateral renal masses consistent with simple cysts and complicated (Bosniak category 2) cysts. Reviewed, Interpreted and Dictated by Adi Shafer III, MD Transcribed by Reese Bermudez Authenticated and [facility]
[2023-08-25 10:40] LABS: POC Glucose,Bedside 240 (70-110)
--- NOTE | 2023-08-25 11:50 | PC.NURSE ---
20g left ac removed.
--- NOTE | 2023-08-25 14:48 | EXP.ACUTE.PN ---
Subjective *Date: 08/25/23 *Time: 14:48 Interval history: Patient feeling better this morning. Still having some left lower quadrant pain but no nausea or vomiting. Tolerating p.o. intake well. Afebrile overnight. Back to baseline mentation. Medical Exam Vital signs and Labs for Last 24 Hours: Vital Signs Temp Pulse Pulse Resp BP Pulse Ox O2 Del Method 08/25/23 12:00 80 08/25/23 13:59 Room Air 08/25/23 12:37 Room Air 08/25/23 11:04 98.0 F 70 18 140/78 98 Room Air 08/25/23 08:36 80 08/25/23 09:44 Room Air 08/25/23 09:00 Room Air 08/25/23 08:00 96 Room Air 08/25/23 07:20 97.4 F L 72 18 127/75 98 Room Air 08/25/23 06:40 Room Air 08/25/23 04:00 80 08/25/23 05:00 Room Air 08/25/23 03:00 Room Air 08/25/23 04:00 98.8 F 81 18 140/71 97 Room Air 08/25/23 00:00 70 08/24/23 20:00 70 08/25/23 01:00 Room Air 08/25/23 00:00 98.8 F 79 18 133/69 95 Room Air 08/24/23 23:00 Room Air 08/24/23 21:00 Room Air 08/24/23 20:00 98.6 F 72 18 131/70 97 Room Air 08/24/23 19:00 Room Air 08/24/23 17:00 Room Air 08/24/23 16:00 60 08/24/23 15:42 97.9 F 72 17 143/70 H 98 Room Air 08/24/23 15:00 Room Air Intake and Output 08/24/23 08/25/23 08/25/23 23:59 07:59 15:59 Intake Total 270 / 870 480 / 1000 520 / 1000 Output Total 0 / 1150 600 / 600 Balance 270 / -280 -120 / 400 520 / 400 Intake: Intake, Oral Amount 270 / 870 480 / 950 470 / 950 Intake, Total IV Amount 50 / 50 Ceftriaxone Sodium 1 gm In 0.9 50 / 50 % Sodium Chloride 50 ml @ 100 mls/hr IV Q24H [facility] Rx#:[id number] Output: Output, Urine Amount 0 / 1150 600 / 600 Other: Number of Voids 0 Weight 96.388 kg 96.39 kg Patient Weight 08/25/23 23:59 Weight 96.39 kg Laboratory Results - last 24 hr 08/24/23 00:30: Urine Color Yellow, Urine Appearance Clear, Urine pH 5.5, Ur Specific [place] 1.015, Urine Protein Negative, Urine Glucose (UA) Negative, Urine Ketones Negative, Urine Blood Negative, Urine Nitrate Negative, Urine Bilirubin Negative, Urine Urobilinogen 0.2, Ur Leukocyte Esterase Trace, Urine RBC None, Urine WBC 20-50, Ur Squamous Epith Cells Occasional, Urine Bacteria 1+, Hyaline Casts Occasional 08/24/23 16:24: POC Glucose 172 H 08/24/23 20:10: POC Glucose 280 H 08/25/23 06:07: POC Glucose 217 H 08/25/23 06:17: WBC 12.8 H D, RBC 3.90 L, Hgb 11.9 L, Hct 37.0 L, MCV 94.8 H, MCH 30.5, MCHC 32.2, RDW 14.0, Plt Count 241, MPV 7.8, Neut % (Auto) 87.6 H, Lymph % (Auto) 6.8 L, [place] % (Auto) 5.3, Eos % (Auto) 0.2, Baso % (Auto) 0.1, Neut # (Auto) 11.2 H, Lymph # (Auto) 0.9, [place] # (Auto) 0.7, Eos # (Auto) 0.0, Baso # (Auto) 0.0, Total Counted 100, Neutrophils % (Manual) 89 H, Band Neutrophils % 10.0 H, Lymphocytes % (Manual) 1 L, Platelet Estimate Normal, RBC Morphology Normal, Sodium 135 L, Potassium 3.7, Chloride 106, Carbon Dioxide 23, Anion Gap 9.7, BUN 30 H, Creatinine 1.30 H D, Estimated Creat Clear 68, Estimated GFR 54 L, Est GFR ( Amer) 65 D, Glucose 221 H, Calcium 7.9 L, Magnesium 1.9, Total Bilirubin 0.2, AST 31, ALT 31, Alkaline Phosphatase 166 H, Total Protein 5.4 L, Albumin 2.6 L, Globulin 2.8, Albumin/Globulin Ratio 0.9 L 08/25/23 10:32: POC Glucose 240 H I & O for Labs for Last 24 Hours: Intake & Output 08/22/23 08/23/23 08/24/23 08/25/23 23:59 23:59 23:59 23:59 Intake Total 240 / 600 630 / 870 1000 / 1000 Output Total 760 / 960 850 / 1150 600 / 600 Balance -520 / -360 -220 / -280 400 / 400 Weight 96.388 kg 96.388 kg 96.39 kg Microbiology Reports for the Last 24 Hours: Microbiology 08/23/23 13:34 Blood Blood Culture - Preliminary Gram Negative Rods 08/23/23 13:34 Blood Blood Culture - Preliminary Gram Negative Rods 08/24/23 00:30 Urine,Clean Catch Urine Culture - P
[2023-08-25 16:57] LABS: POC Glucose,Bedside 183 (70-110)
[2023-08-25 20:30] LABS: POC Glucose,Bedside 243 (70-110)
[2023-08-26] VITALS (8 sets, daily range): BP systolic 114–154; BP diastolic 55–80; PULSE 65–81; RESP 17–19; TEMP 36.3–37.9; O2SAT 94–98; BMI 30.4
--- NOTE | 2023-08-26 05:49 | PC.NURSE ---
low grade fever of 99.7
[2023-08-26 06:19] LABS: POC Glucose,Bedside 111 (70-110)
[2023-08-26 06:27] LABS: Chloride 107 mmol/L (98-107); Potassium 3.7 mmoL/L (3.5-5.1); Sodium 137 mmol/L (136-145)
[2023-08-26 06:30] LABS: Alanine Aminotransferase 29 U/L (12-78); Albumin Level 2.6 g/dl (3.5-5.0); Alkaline Phosphatase 138 U/L (38-126); Anion Gap 8.7 mEq/L (5-15); Aspartate Amino Transferase 39 U/L (17-59); Bilirubin,Total 0.3 mg/dl (0.2-1.3); Blood Urea Nitrogen 22 mg/dl (9-20); Calcium 7.9 mg/dl (8.4-10.2); Carbon Dioxide 25 mmol/L (22.0-30.0); Creatinine Clearance Estimated 80 mL/min (50-200); Estimated Glomerular Filt Rate 65 ml/min (>60); GFR (African American) 79 ML/MIN (>60); Globulin 2.7 g/dL (1.3-3.2); Glucose 115 mg/dl (74-100); Total Protein,Serum 5.3 g/dl (6.3-8.2)
[2023-08-26 06:49] LABS: Basophils % 0.2 % (0.1-2.0); Eosinophils % 0.2 % (0.1-12.0); Hematocrit 36.6 % (42.0-52.0); Hemoglobin 11.7 g/dL (14.1-18.0); Lymphocytes # 1.2 K/mm3 (0.7-4.5); Lymphocytes % 11.1 % (10-50); Mean Corpuscular Hemoglobin 30.3 pg (27.0-31.2); Mean Corpuscular Volume 94.5 fl (80-94); Mean Platelet Volume 8.3 fl (7.4-10.4); Monocytes # 0.6 K/mm3 (0.1-1.0); Monocytes % 5.9 % (1.7-9.3); Neutrophils # 8.6 K/mm3 (1.8-7.8); Neutrophils % 82.6 % (37.0-80.0); Platelet Count 243 K/mm3 (142-424); Red Blood Count 3.87 M/mm3 (4.60-6.20); Red Cell Distribution Width 14.1 % (11.5-17.5); White Blood Count 10.4 K/mm3 (4.8-10.8)
--- NOTE | 2023-08-26 07:49 | EXP.DC.SUM ---
General Admission date:: 08/23/23 Discharge date: 08/26/23 HPI HPI HPI: This is a 72-year-old male who presents to [facility] emergency department with concerns of shortness of air over 48 hours. His past medical history is significant for coronary artery disease with recent left heart cath and stent deployment on August 14, 2023. Previous coronary bypass grafting in 2008. Uncontrolled diabetes with recent hemoglobin A1c 10.7%. Obstructive sleep apnea noncompliant with NIPPV therapy at home. The patient reports a recent evaluation with his PCP and was doing better but over the last 48 hours he has identified shortness of air initially occurring with exertion now occurring at rest. He reports no associated chest pain, palpitations or confusion. He reports subjective fever and chills but no hemoptysis or productive cough. He recalls no sick contacts. He reports that shortness of air has increased with no identified increasing lower extremity edema. In the ED his CBC identifies a normal white blood cell count, low sodium and elevated potassium and creatinine 1.5 (baseline 0.9). His magnesium is 1.4?initial troponin is positive at 1.32. His BNP is greater than 14,000. His ECG identifies no ST-T changes but does identify right bundle branch block. A recent inpatient echo identified an EF 55%. His chest x-ray is concerning for left lower lobe pneumonia. Hospital Course Hospital Course Hospital Course: 72-year-old male with recent hospitalization for coronary artery disease with left heart cath and stent deployment who presents to the ED with shortness of air, chills, fatigue for over a week, worse for 48 hours. His ED chest x-ray is concerning for left lower lobe pneumonia. CT with effusion but no consolidation. His ED labs are concerning for acute on chronic heart failure with preserved ejection fraction with recent echo identified EF 55% and patient reported noncompliance with NIPPV therapy at home. Blood cultures positive for E. coli. Speciation and sensitivity returned sensitive to levofloxacin. Transition oral antibiotics to complete therapy. Stable for discharge home. Problems addressed as follows: Sepsis E. coli bacteremia E faecalis UTI -Sepsis criteria met with tachycardia, fever, blood cultures positive on admission. Blood cultures returned positive for E. coli, urine culture returned positive for E faecalis. Both culture sensitive to levofloxacin. Initially treated with ceftriaxone, transitioned to Levaquin will complete 10 days total of antibiotics. CT of abdomen obtained due to abdominal pain and infection showing renal cysts in the left kidney. Repeat blood cultures obtained showing clearance. Acute on chronic HFpEF Myocardial injury (type II) Coronary artery disease BALJINDER/OHS/BMI 31/NIPPV noncompliance Continue telemetry monitoring; Left heart cath 08/14/2023 with stent deployment. Echo (08/14/2023) with EF 55%. Elevated BNP in the ER however patient did not appear volume overloaded. Developed RAZIA due to initial diuresis but improved with gentle fluid rehydration. Transition to Plavix from Brilinta due to shortness of breath. Continue patient Setia, carvedilol. Stable at discharge. Acute kidney injury Baseline creatinine 0.9; creatinine peaked at 1.9, down to 1.1 on day of discharge. Diabetes Hemoglobin A1c 10.7% last visit. Continue insulin glargine, titrated to 50 units nightly. Continue Januvia daily. Will need further adjustment as an outpatient. Stable for discharge home. Spent 40 minutes in discharge counseling, family discussion, documentation, chart review, and direct care with patient. Exam Data for Last 24 hours Vital signs and Labs for Last 24 Hours: Temp Pulse Resp BP Pulse Ox O2 Del Method 98.1 F 73 17 154/80 H 98 Room Air 08/26/23 07:26 08/26/23 07:26 08/26/23 07:26 08/26/23 07:26 08/26/23 07:26 08/26/23 07:26 Laboratory Results - last 24 hr 08/25/23 10:32:
--- NOTE | 2023-08-26 10:24 | SW/DCPLANNER ---
Addendum entered by Chasity Flores 08/26/23 15:54: Desire w/ [facility] stated that they will resume home health services tomorrow. Addendum entered by Chasity Flores 08/26/23 15:26: Patient information/order to resume home health services has been faxed to [facility]. Original Note: Patient is currently established w/ [facility]: home health services will be resumed at time of discharge. Per MD patient may discharge tomorrow pending no setbacks.
[2023-08-26 10:40] LABS: POC Glucose,Bedside 177 (70-110)
[2023-08-26 13:14] LABS: Magnesium 1.8 mg/dl (1.6-2.3)
--- NOTE | 2023-08-26 14:17 | PC.NURSE ---
PT IS RESTING IN BED WITH FAMILY AT BEDSIDE. ALERT AND ORIENTED X4. THIS MORNING PT WAS IN BED CHILLING. TEMP WAS 100.3. BLANKETS WERE REMOVED AND PT WAS MEDICATED PER MAR WITH TYLENOL. ON REASSESSMENT PT'S TEMP WAS 98.9 AND PT STATED HE WAS FEELING BETTER. NEW IV ACCESS NOTED TO RIGHT WRIST. LUNG SOUNDS DIMINISHED. ABDOMEN SOFT/NON TENDER WITH ACTIVE BOWEL SOUNDS. NO SWELLING NOTED TO BLE. SCATTERED BRUISING/ABRASIONS NOTED TO BUE. WILL CONTINUE TO MONITOR.
--- NOTE | 2023-08-27 14:21 | SW/DCPLANNER ---
Follow up phone call was made w/ this patient on 08/27/23. Patient stated that he is doing well at home and home health had just left his house. Patient has no further needs/questions at this time.
--- NOTE | 2023-09-07 09:32 | PC.NURSE ---
blood culture on worklist, growing e.coli. Notified dr. trejo (on shift at this time). Pt d/c from hospital per dr. webster on levaquin. ID and sensitivity states sensitive to levaquin. Dr. Trejo states no further action needed.
== END 2023-08-26 15:55 | disposition home health service (06) | DRG 871 ==
LOC: ER 14:12 → 2ND 14:22
PROVIDERS: Internal Medicine Adolescent Medicine; Admitting Provider Family Medicine; Emergency Provider Emergency Medicine; PCP Family Medicine; Visit Provider Family Medicine
DX: A41.51 Sepsis due to Escherichia coli [E. coli] (principal); I21.A1 Myocardial infarction type 2; J18.9 Pneumonia, unspecified organism; I50.33 Acute on chronic diastolic (congestive) heart failure; N17.9 Acute kidney failure, unspecified; I13.0 Hypertensive heart and chronic kidney disease with heart failure and stage 1 through stage 4 chronic kidney disease, or unspecified chronic kidney disease; R65.20 Severe sepsis without septic shock; I25.10 Atherosclerotic heart disease of native coronary artery without angina pectoris; G47.33 Obstructive sleep apnea (adult) (pediatric); N18.9 Chronic kidney disease, unspecified; Z95.1 Presence of aortocoronary bypass graft; E11.22 Type 2 diabetes mellitus with diabetic chronic kidney disease; I65.29 Occlusion and stenosis of unspecified carotid artery
CPT/HCPCS: 36415; 71045; 71250; 74176; 74177; 80053; 81001; 82803; 82962; 83605; 83735; 83880; 84439; 84443; 84484; 85007; 85025; 85610; 87040; 87077; 87086; 87088; 87186; 87636; 93005; 93308; 99285; J0696; J1956; J3475; Q9967

== ENCOUNTER 2024-01-26 16:41 | Outpatient (CLI) | payer MEDICARE, SELFPAY ==
[2024-01-26 16:58] LABS: Microalbumin/Creatinine Ratio 52.9
[2024-01-26 16:59] LABS: Creatinine,Urine Random 62 mg/dL (Not Estab.)
[2024-01-26 18:26] LABS: Hemoglobin A1C 10.2 % (4.0-6.0)
== END 2024-01-26 23:59 ==
LOC: LAB.DROPOF 16:42
PROVIDERS: PCP Family Medicine; Visit Provider Family Medicine
DX: E11.9 Type 2 diabetes mellitus without complications (principal)
CPT/HCPCS: 82043; 82570; 83036

== ENCOUNTER 2024-06-02 10:00 | Outpatient (RCR) | payer MEDICARE, SELFPAY ==
--- NOTE | 2024-05-10 11:55 | HMH.PTOPEV ---
PT Outpatient Evaluation Rehab PT Outpatient Evaluation Start: 05/10/24 10:46 Freq: Status: Active Protocol: Document 05/10/24 10:46 SHARRISEROUViolet (Rec: 05/10/24 11:55 PDESEROUX [id number]) E-signed By Zoltan Burton, PT Outpatient Therapy Subjective History Subjective History Pt. is a 73 year old male who presents to [facility] in [place] for the initial evaluation this date(05/10/24) w/ c/o chronic and constant BLE(R>L) knee P!, edema, and weakness of insidious onset for the last 12 years that keeps getting worse. Pt. reports managing symptoms w/ cortisone injection every 90 days and gel injections every 6 months that provided more symptom relief initially. Pt. reports having no symptom relief w/ recent injection in the RLE knee. Pt. also reports having a RLE knee jt. aspiration last Thursday(11/15) secondary to increased edema. Recent diagnostic imaging indicates bone on bone regarding the RLE knee, but not as bad in the LLE knee per pt. report. Pt. reports symptoms will increase w/ stair negotiating, ambulation, standing, and sleeping creating difficulty w / ADLs. Pt. also reports the RLE knee giving out intermittently when he's up and walking on it. Pt. also describes symptoms as a burning sensation. Pt. reports having some symptom relief w/ rest and biofreeze. Pt. RTMD 05/13/24. Current medications include muscle relaxer, baby aspirin, and Carvedilol. PMH includes DM-II, gastroesophargeal reflux disease, cardiac stent placement 2023, S/P LLE ALICIA, and CABG. New diagnosis of cancer in past 12 No months? Chief Complaint Pain,Stiff,Clicks,Swelling, Gives out/Unstable,Weakness Symptom Type Ache,Throb,Sharp,Dull,Stabbing ,Burning,Shooting Symptoms Relieved By Rest/Positioning,Ice, Prescription Meds Symptoms Aggravated By Standing,Bending/Stooping, Physical Activity,Twisting, Walking Prior Functional Limitations None Current Functional Limitations Sleeping,Standing,Squatting, Recreation Activity,Walking, Stairs,Bending/Stooping Symptom Description Constant but Variable,Activity Dependent Level of pain today (0-10) 5 Pain scale - at its best (0-10) 4 Pain scale - at its worst (0-10) 10 Hip/Knee Eval Gait Observation General Gait Pattern Observation Antalgic Gait,Decrease Weight Bear (R),Decrease Stride Lngth (L) Assistive Device Assistive Devices None / NA Palpation Tenderness bilateral Knee Palpation Finding Tenderness Knee Palpation Overall Comment grade 4 +TTP to medial/ anterior jt. line(R>L) MMT Hip Flexion Strength Grade 4- Good- Hip Abduction Strength Grade 4- Good- Hip Adduction Strength Grade 4- Good- Hip Extension Strength Grade 4 Good Gluteus Christopher Strength Grade 4 Good Hip External Rotation Strength Grade 4- Good- Hip Internal Rotation Strength Grade 3+ Fair+ Knee Extension Strength Grade 4- Good- Knee Flexion Strength Grade 4- Good- Knee Extensors Muscle Tone Description Severe Hypertonicity Knee Flexors Muscle Tone Description Severe Hypertonicity Hip Extensors Muscle Tone Description Severe Hypertonicity Hip Flexors Muscle Tone Description Severe Hypertonicity ROM left Knee Extension Active Range of Motion ( +7 degrees) Knee Extension Passive Range of Motion ( +5 degrees) Knee Flexion Active Range of Motion ( 119 degrees) Knee Flexion Passive Range of Motion ( 121 degrees) Knee ROM Limitations Soft Tissue Tightness,Muscle Weakness,Pain right Knee Extension Active Range of Motion ( +9 degrees) Knee Extension Passive Range of Motion ( +7 degrees) Knee Flexion Active Range of Motion ( 115 degrees) Knee Flexion Passive Range of Motion ( 119 degrees) Knee ROM Limitations Soft Tissue Tightness,Muscle Weakness,Pain Effusion joint effusion knee exam standard right Mid - Patellar Circumerential Measure ( 38 cm) Special Tests Knee Anterior Drawer Test Negative Left,Negative Right Knee Medial-Lateral Grind Test Positive Left,Positive Right Knee Anterior Ramona Test Negative Left,Negative Right Knee Valgus Stress Test Negative Left,Negative Right Knee Varus Stress Test Negative Left,Negative Right Knee Royce Test Negative Left,Negative Right Outpatient Therapy Assessment Impairments Problems/Impairmments Palpation Tenderness,Impaired Range of Motion,Impaired Strength,Impaired Endurance, Impaired Transfers,Impaired Gait Pattern,Impaired Walking, Impaired Standing,Impaired Stair Climbing,Impaired Incline Stepping,Impaired Stepping on Uneven Surface, Impaired Squatting,Impaired Bending,Impaired Recreational Activities,Impaired Work Activities,Increased Edema, Subjective C/O Pain,Impaired Self Care/Self Management Prognosis Rehab Potential Good Comment w/ HEP compliancy Clinical Impression Consistent with Diagnosis Yes Consistent with BLE(R>L) knee OA Short Term Goals Number of Weeks 2 Decreased Palpation Tenderness Yes: grade 1-2 +TTP to TTP assessment above Decrease Subjective C/O Pain Yes: worse:04/01 Patient to be Ind w/ HEP Yes Home Health Care Respiratory Therapist Goals Number of Weeks 6-8 Decreased Palpation Tenderness Yes: grade 1 +TTP to TTP assessment above Increase Range of Motion Yes: BLE knee 0-120 Increase Strength Yes: 4+ to 5/5 BLE MMT scores grossly Improve Gait Pattern without Assistive Yes Device Increase Ability to Walk Yes Increase Ability to Stand Yes Improve Ability to Climb Stairs Yes: Pt. will be able to negotiate stairs in house w/o difficulty Decrease Edema Yes: 1-2cm. improvement RLE knee mid. Decrease Subjective C/O Pain Yes: worse:-01/30 Patient to be Ind w/ Advanced HEP Yes Outpatient Therapy Plan of Care Treatment Plan May Include Therapeutic Exercise Including Home Yes Exercise Program Manual Therapy Techniques Yes Neuromuscular Re-education Yes Therapeutic Activities to Return to Yes Previous Functional/Work Level Gait Training Yes ADL/Self Care Education Yes Dry Needling Yes Thermal Modalities Yes Electrical Stimulation Yes Ultrasound/Phonophoresis Yes Iontophoresis Yes Vasopneumatic Compression Pump Yes Massage Yes Eval/Re-Eval Yes Frequency Times per week 2 Duration Number of Weeks 6-8 Addendums This patient is a candidate for social No or vocational rehab? Patient/Guardian verbally acknowledges Yes understanding of treatment program and consents to further treatment? Patient/Guardian verbally acknowledges Yes understanding of diagnosis, prognosis and goals for treatment? Eval Complexity PT Charges 99662 - Moderate Complexity Shoulder/Elbow Eval Shoulder Objective Measurements Elbow Objective Measurements PHYSICIAN CERTIFICATION: I certify the specified therapy services for Ruy Guerrero are required, authorized, and reviewed every 30 days.
== END 2024-06-13 11:04 | disposition home or self-care (01) ==
LOC: PT 10:00
PROVIDERS: Visit Provider Orthopaedic Surgery
DX: M25.561 Pain in right knee (principal)
CPT/HCPCS: 97110; 97163; 97530

== ENCOUNTER 2024-06-09 13:44 | Emergency (ER) | payer MEDICARE, SELFPAY ==
--- NOTE | 2024-06-09 13:59 | ED_ITS ---
Discharge Plan Disposition Patient Disposition: Home, Self-Care Condition: Good Prescriptions Prescriptions: New methylprednisolone 4 mg Tablets,Dose Pack 4 mg PO DIRECTED 6 Days Qty: 21 0RF Rx Instructions: Take 1 pack as directed for 6 days methocarbamol 500 mg tablet 500 mg PO TID PRN (Reason: muscle spasm) Qty: 20 0RF No Action (DME) FreeStyle Sridhar 2 Sensor Kit See Rx Instructions .Route Qty: 1 8RF Rx Instructions: As directed (DME) FreeStyle Sridhar 2 [place] Misc See Rx Instructions .Route Qty: 1 1RF Rx Instructions: As directed (DME) pen needle, diabetic [Pen Needle] 31 gauge x 1/4 needle See Rx Instructions .Route Qty: 100 1RF Rx Instructions: As directed terazosin 5 mg capsule 5 mg PO DAILY Patient Comments: TAKE 2 CAPSULES BY MOUTH DAILY FOR HIGH BLOOD PRESSURE clopidogrel 75 mg tablet 75 mg PO DAILY Patient Comments: TAKE 1 TABLET BY MOUTH DAILY glimepiride 4 mg tablet 4 mg PO DAILY Patient Comments: TAKE 1 TABLET BY MOUTH EVERY MORNING BEFORE BREAKFAST aspirin 81 mg tablet,chewable 81 mg PO DAILY Patient Comments: CHEW AND SWALLOW 1 TABLET BY MOUTH DAILY FOR HEART HEALTH ezetimibe 10 mg tablet 10 mg PO DAILY Patient Comments: TAKE 1 TABLET BY MOUTH DAILY FOR CHOLESTEROL Mounjaro 2.5 mg/0.5 mL pen injector 2.5 mg SQ WEEKLY Patient Comments: ADMINISTER 2.5 MG UNDER THE SKIN 1 TIME EVERY WEEK DIRECTED Clinical Impressions Clinical Impression: Torticollis Discharge ED Provider: Gary Darnell [facility] General Stated complaint: neck shoulder pain Time Seen by Provider: 06/09/24 13:59 History of Present Illness Provider Complaint: He states that for the past 1 week he has had neck stiffness and upper back pain. He denies any injury or fall. Related Data Home Medications Medication Instructions Recorded Confirmed aspirin 81 mg chewable tablet 81 mg PO DAILY 06/09/24 06/09/24 clopidogrel 75 mg tablet 75 mg PO DAILY 06/09/24 06/09/24 ezetimibe 10 mg tablet 10 mg PO DAILY 06/09/24 06/09/24 glimepiride 4 mg tablet 4 mg PO DAILY 06/09/24 06/09/24 terazosin 5 mg capsule 5 mg PO DAILY 06/09/24 06/09/24 tirzepatide 2.5 mg/0.5 mL 2.5 mg SQ WEEKLY 06/09/24 06/09/24 subcutaneous pen injector (Arely) Previous Rx's Medication Instructions Recorded flash glucose scanning reader #1 ea 09/07/23 (FreeStyle Sridhar 2 [place]) pen needle, diabetic 31 gauge x #100 ea 09/07/23 1/4 (Pen Needle) flash glucose sensor (FreeStyle #1 ea 09/11/23 Sridhar 2 Sensor kit) methocarbamol 500 mg tablet 500 mg PO TID PRN muscle spasm #20 06/09/24 tabs methylprednisolone 4 mg tablets in 4 mg PO DIRECTED 6 days #21 tabs 06/09/24 a dose pack Allergies Allergy/AdvReac Type Severity Reaction Status Date / Time amlodipine [From Norvas] Allergy Unknown Unknown Verified 05/30/24 11:39 allergy reaction losartan Allergy Unknown Unknown Verified 05/30/24 11:39 allergy reaction pravastatin AdvReac Mild nausea Verified 05/30/24 11:39 fentanyl AdvReac Verified 05/30/24 11:39 midazolam [From Versed] AdvReac Verified 05/30/24 11:39 [facility] Disclaimer: The information contained in this section may have been updated after the pat ient was seen, as this information can be updated by other users. Medical History Carotid artery stenosis Gastroesophageal reflux disease Sleep apnea Diabetes mellitus HLD (hyperlipidemia) HTN (hypertension) CAD (coronary artery disease) Surgical History Hx of CABG H/O heart artery stent History of surgery on arm History of hip replacement Family History Sister Cancer Coronary artery disease Diabetes Brother Cancer Coronary artery disease Diabetes Father Diabetes Social History Smoking Status: Never smoker second hand exposure: No alcohol intake: never substance use type: denies use current occupational status: employed Travel in the last 8 weeks: None household members: children housing: house current occupational exposures/hazards: No caffeine: Yes ROS Obtained: Yes All systems reviewed & no additional complaints except as documented Constitutional Constitutional: Denies chills and Denies fever(s) Eyes Eyes: Denies eye discharge ENT Ears, Nose, Mouth, and Throat: Denies dizziness, Denies otalgia, Reports neck pain and Denies sore throat Cardiovascular Cardiovascular: Denies chest pain Respiratory Respiratory: Denies shortness of breath, Denies chest congestion, Denies cough, Denies stridor and Denies wheezing Gastrointestinal Gastrointestingal: Denies nausea or vomiting Musculoskeletal Musculoskeletal: Reports as per HPI, Reports back pain and Reports neck pain Integumentary/Breasts Skin/Breast: Denies rash Neurologic Neurologic: Denies dizziness, Denies paresthesias and Denies radicular pain Allergic/Immunologic Allergic/Immunologic: Denies wheezing Physical Exam General General appearance: alert and in no apparent distress Head Head exam: atraumatic, normocephalic and normal inspection Eye Eye exam: Present normal appearance, PERRL and EOMI ENT ENT exam: Present normal exam, normal oropharynx, mucous membranes moist, TM's normal bilaterally and normal external ear exam Neck Neck exam: Present normal inspection, full ROM and trachea midline; Absent meningismus or lymphadenopathy Chest Chest inspection: Present normal inspection and symmetric chest wall rise; Absent tenderness Respiratory Respiratory exam: Present normal lung sounds bilaterally; Absent respiratory distress Cardiovascular Cardiovascular exam: Present regular rate and normal rhythm; Absent JVD Abdominal Exam Abdominal exam: Present soft and normal bowel sounds; Absent distention, tenderness or guarding Extremities Exam Extremities exam: Present normal inspection, full ROM and normal capillary refill; Absent calf tenderness Back Exam Back exam: Present normal inspection; Absent tenderness Neurological Exam Neurological exam: Present alert, oriented X3, CN II-XII intact, normal gait and reflexes normal; Absent motor sensory deficit Expanded Neurological Exam Cranial nerves: Normal: EOM function (II, III, IV, ), facial sensation (V), facial palsy (VII), gag reflex (IX), spinal accessory function (XI) and tongue deviation (XII) Cerebellar function: normal gait Motor strength - LUE: 5/5 Motor strength - RUE: 5/5 Motor strength - LLE: 5/5 Motor strength - RLE: 5/5 Upper motor neuron exam: Normal: fina neglect and sensory extinction Sensory exam upper extremity: Normal: light touch and 2 point discrimination Sensory exam lower extremity: Normal: light touch and 2 point discrimination DTR: 2+: biceps (L), biceps (R), patellar (L), patellar (R), Achilles tendon (L) and Achilles tendon (R) Spinal cord function: Absent saddle anesthesia Psychiatric Psychiatric exam: Present normal affect and normal mood Skin Skin exam: Present warm, dry, intact and normal color Lymphatic Lymphatic Findings: no adenopathy Medical Decision Making Freddie Inquiry Pt receiving controlled substance: No
[2024-06-09 14:05] VITALS: BP 124/83; PULSE 83; RESP 20; TEMP 36.4; O2SAT 96; BMI 27.8
[2024-06-09] MEDS: DEXAMETHASONE 4MG/ML 1ML VIAL 8 MG IM (14:40)
[2024-06-09] MEDS: KETOROLAC 60MG/2ML VIAL 30 MG IM (14:40)
[2024-06-09 14:41] VITALS: BP 124/83; PULSE 83; RESP 20; TEMP 36.4; O2SAT 96
== END 2024-06-09 14:51 | disposition home or self-care (01) ==
PROVIDERS: Emergency Provider Nurse Practitioner Family; PCP Family Medicine
DX: M43.6 Torticollis (principal); M54.6 Pain in thoracic spine; M54.2 Cervicalgia
CPT/HCPCS: 96372; 99212; 99214; G0463; J1100; J1885

== ENCOUNTER 2024-06-21 14:54 | Outpatient (CLI) | payer MEDICARE, SELFPAY ==
[2024-06-21 15:26] LABS: Basophils # 0.1 K/mm3 (0-0.2); Basophils % 0.9 % (0.1-2.0); Eosinophils # 0.4 K/mm3 (0.0-0.4); Eosinophils % 4.5 % (0.1-12.0); Hematocrit 42.6 % (42.0-52.0); Hemoglobin 14.2 g/dL (14.1-18.0); Lymphocytes # 1.7 K/mm3 (0.7-4.5); Lymphocytes % 19.2 % (10-50); Mean Corpuscular HGB Conc 33.3 g/dL (31.8-35.4); Mean Corpuscular Hemoglobin 30.8 pg (27.0-31.2); Mean Corpuscular Volume 92.4 fl (80-94); Monocytes # 0.5 K/mm3 (0.1-1.0); Neutrophils # 6.3 K/mm3 (1.8-7.8); Neutrophils % 69.3 % (37.0-80.0); Platelet Count 183 K/mm3 (142-424); Red Blood Count 4.61 M/mm3 (4.60-6.20); Red Cell Distribution Width 14.2 % (11.5-17.5); White Blood Count 9.1 K/mm3 (4.8-10.8)
[2024-06-21 15:48] LABS: Alanine Aminotransferase 30 U/L (12-78); Albumin Level 3.6 g/dl (3.5-5.0); Alkaline Phosphatase 111 U/L (38-126); Anion Gap 10.3 mEq/L (5-15); Aspartate Amino Transferase 25 U/L (17-59); Bilirubin,Indirect 0.5 mg/dL (0.0-0.9); Bilirubin,Total 0.5 mg/dl (0.2-1.3); Bilirubin,Unconjugated 0.6 mg/dL (0.0-1.1); Blood Urea Nitrogen 16 mg/dl (9-20); Calcium 9.4 mg/dl (8.4-10.2); Carbon Dioxide 27 mmol/L (22.0-30.0); Chloride 104 mmol/L (98-107); Chol/HDL Ratio 4.6 (1-3.5); Cholesterol 162 mg/dl (140-200); Estimated Glomerular Filt Rate 65 ml/min (>60); GFR (African American) 79 ML/MIN (>60); Glucose 179 mg/dl (74-100); HDL Cholesterol 35 mg/dl (40-60); Potassium 4.3 mmoL/L (3.5-5.1); Sodium 137 mmol/L (136-145); Triglycerides 317 mg/dl (30-150); VLDL Cholesterol 63 mg/dL (0-40)
[2024-06-21 15:56] LABS: Hemoglobin A1C 8.2 % (4.0-6.0)
[2024-06-21 15:59] LABS: Direct LDL Cholesterol 76.71 mg/dL (100-129)
[2024-06-21 16:05] LABS: Free T4 (Free Thyroxine) 0.96 ng/dl (0.78-2.19)
[2024-06-21 16:19] LABS: Thyroid Stimulating Hormone 3.38 uIU/mL (0.465-4.68)
== END 2024-06-21 23:59 | disposition home or self-care (01) ==
LOC: LAB 14:55
PROVIDERS: PCP Family Medicine; Visit Provider Internal Medicine
DX: I11.9 Hypertensive heart disease without heart failure (principal); N28.89 Other specified disorders of kidney and ureter; R78.81 Bacteremia; B96.20 Unspecified Escherichia coli [E. coli] as the cause of diseases classified elsewhere; I5A Non-ischemic myocardial injury (non-traumatic); I25.10 Atherosclerotic heart disease of native coronary artery without angina pectoris; E78.2 Mixed hyperlipidemia; E11.9 Type 2 diabetes mellitus without complications; R06.00 Dyspnea, unspecified; K21.9 Gastro-esophageal reflux disease without esophagitis
CPT/HCPCS: 36415; 80048; 80061; 80076; 83036; 84439; 84443; 85025

== ENCOUNTER 2024-06-28 09:58 | Outpatient (CLI) | payer MEDICARE, SELFPAY ==
--- NOTE | 2024-06-28 10:00 | CA_ITS ---
FINAL REPORT TECHNIQUE: Color Doppler, duplex Doppler and gaxiola scale sonography of the bilateral neck arterial vasculature was performed. Velocities were measured in the carotid arteries. Stenosis evaluation based on the validated velocity criteria. CLINICAL HISTORY: poss TIA, HTN, HLD, DM, CAD. COMPARISON: None FINDINGS: The peak systolic velocity of the right common carotid artery is 86 cm/s. The peak systolic velocity of the right internal carotid artery is 124 cm/s and end diastolic velocity 29 cm/s. The ICA/CCA ratio is 2.04. A mild amount of plaque is present. The right external carotid artery is patent. The right vertebral artery is patent with antegrade flow. The peak systolic velocity of the left common carotid artery is 81 cm/s. The peak systolic velocity of the left internal carotid artery is 109 cm/s and end diastolic velocity 34 cm/s. The ICA/CCA ratio is 1.63. A mild amount of plaque is present. The left external carotid artery is patent.The left vertebral artery is patent with antegrade flow. IMPRESSION: Less than 50% bilateral carotid stenoses. Bilateral patent vertebral arteries with antegrade flow. If indicated, CTA or MRA could further evaluate. Reviewed, Interpreted and Dictated by Adi Shafer III, MD Transcribed by Margarita Allison Authenticated and [facility]
--- NOTE | 2024-06-28 10:00 | CT_ITS ---
FINAL REPORT CLINICAL HISTORY: poss TIA COMPARISON: 08/14/2023 FINDINGS: Axial images of the head were obtained without contrast. Coronal and sagittal reformatted images were also obtained. This study was performed with techniques to keep radiation doses as low as reasonably achievable (ALARA). Individualized dose reduction techniques using automated exposure control or adjustment of mA and/or kV according to the patient's size were employed. There is generalized age appropriate atrophy. There is no evidence of intracranial hemorrhage or mass. There is a chronic right periventricular lacunar infarct, stable since the prior CT. The ventricular size is within normal limits. There is no evidence of shift of the midline structures. No skull abnormality is seen on the bone window images. IMPRESSION: No acute intracranial abnormality. Reviewed, Interpreted and Dictated by Adi Shafer III, MD Transcribed by Anjelica Stallworth Authenticated and [facility]
== END 2024-06-28 23:59 | disposition home or self-care (01) ==
LOC: RAD 10:00
PROVIDERS: PCP Family Medicine; Visit Provider Family Medicine
DX: G45.9 Transient cerebral ischemic attack, unspecified (principal); I25.10 Atherosclerotic heart disease of native coronary artery without angina pectoris; I10 Essential (primary) hypertension; I50.9 Heart failure, unspecified; E78.5 Hyperlipidemia, unspecified; Z95.1 Presence of aortocoronary bypass graft; I65.03 Occlusion and stenosis of bilateral vertebral arteries
CPT/HCPCS: 70450; 93880

== ENCOUNTER 2024-09-15 14:54 | Emergency (ER) | payer MEDICARE, SELFPAY ==
[2024-09-15 15:05] VITALS: BP 136/87; PULSE 76; RESP 20; TEMP 36.6; O2SAT 97; BMI 28.7
[2024-09-15] MEDS: DEXAMETHASONE 4MG/ML 1ML VIAL 8 MG IM (15:34)
[2024-09-15] MEDS: KETOROLAC 60MG/2ML VIAL 60 MG IM (15:34)
[2024-09-15 15:41] VITALS: BP 136/87; PULSE 76; RESP 20; TEMP 36.6; O2SAT 97
--- NOTE | 2024-09-16 08:30 | ED_ITS ---
Discharge Plan Disposition Patient Disposition: Home, Self-Care Condition: Good Prescriptions Prescriptions: New methylprednisolone 4 mg Tablets,Dose Pack 4 mg PO DIRECTED 6 Days Qty: 21 0RF Rx Instructions: Take 1 pack as directed for 6 days methocarbamol 500 mg tablet 500 mg PO TID PRN (Reason: muscle spasm) Qty: 30 0RF No Action (DME) FreeStyle Sridhar 2 Sensor Kit See Rx Instructions .Route Qty: 1 8RF Rx Instructions: As directed (DME) FreeStyle Sridhar 2 [place] Misc See Rx Instructions .Route Qty: 1 1RF Rx Instructions: As directed (DME) pen needle, diabetic [Pen Needle] 31 gauge x 1/4 needle See Rx Instructions .Route Qty: 100 1RF Rx Instructions: As directed terazosin 5 mg capsule 5 mg PO DAILY Patient Comments: TAKE 2 CAPSULES BY MOUTH DAILY FOR HIGH BLOOD PRESSURE carvedilol 12.5 mg tablet 12.5 mg PO DAILY Patient Comments: TAKE 1 TABLET BY MOUTH TWICE DAILY WITH MEAL/FOOD clopidogrel 75 mg tablet 75 mg PO DAILY Patient Comments: TAKE 1 TABLET BY MOUTH DAILY omeprazole 40 mg capsule,delayed release(DR/EC) 40 mg PO DAILY glimepiride 4 mg tablet 4 mg PO DAILY aspirin 81 mg tablet,chewable 81 mg PO DAILY Patient Comments: CHEW AND SWALLOW 1 TABLET BY MOUTH DAILY FOR HEART HEALTH ezetimibe 10 mg tablet 10 mg PO DAILY Patient Comments: TAKE 1 TABLET BY MOUTH DAILY FOR CHOLESTEROL Mounjaro 2.5 mg/0.5 mL pen injector 2.5 mg SQ WEEKLY Referrals Follow up/Referrals: Herminio Jo MD [Primary Care Provider] - See instructions Activity Restrictions/Add. Instructions Additional Instructions/Restrictions: Go home and rest. It would be best if you rested tomorrow too. No heavy lifting. No twisting. Take the oral medications as directed. The muscle relaxer (methocarbimol/ robaxin) will make you drowsy, so don't drive or operate heavy machinery after taking it. Don''t start the oral steroids (medrol dose pack) until tomorrow, since you had the shots in here today. Follow up with your regular doctor. GO TO THE ER FOR ANY WORSENING SYMPTOMS OR CONCERN Clinical Impressions Clinical Impression: Torticollis Instructions Patient Instructions: Methocarbamol, Methylprednisolone, Ketorolac Injection, Dexamethasone Injection Print Language Print Language: Slovenian Discharge ED Provider: Gary Darnell [facility] [place] HPI General Stated complaint: Pain in both shoulders Mode of Arrival: Ambulatory Source of Information: Patient Limitations: No Limitations Time Seen by Provider: 09/15/24 15:30 Description of Symptoms (Recalled from Triage Doc. by RN): PATIENT C/O PAIN TO NECK, SHOULDERS, UPPER LEGS AND KNEES. PATIENT REQUESTING SHOTS HEENT Symptoms (Recalled from RN notes): No Resp Symptoms (Recalled from RN notes): No Skin Symptoms (Recalled from RN notes): No MS Symptoms (Recalled from RN notes): Yes Functional Status (Recalled from RN notes): WNL Related Data Home Medications ?Medication ?Instructions ?Recorded ?Confirmed aspirin 81 mg chewable tablet 81 mg PO DAILY 09/15/24 09/15/24 carvedilol 12.5 mg tablet 12.5 mg PO DAILY 09/15/24 09/15/24 clopidogrel 75 mg tablet 75 mg PO DAILY 09/15/24 09/15/24 ezetimibe 10 mg tablet 10 mg PO DAILY 09/15/24 09/15/24 glimepiride 4 mg tablet 4 mg PO DAILY 09/15/24 09/15/24 omeprazole 40 mg capsule,delayed 40 mg PO DAILY 09/15/24 09/15/24 release terazosin 5 mg capsule 5 mg PO DAILY 09/15/24 09/15/24 tirzepatide 2.5 mg/0.5 mL 2.5 mg SQ WEEKLY 09/15/24 09/15/24 subcutaneous pen injector (Arely) Previous Rx's ?Medication ?Instructions ?Recorded flash glucose scanning reader #1 ea 09/07/23 (FreeStyle Sridhar 2 [place]) pen needle, diabetic 31 gauge x #100 ea 09/07/2311/26 (Pen Needle) flash glucose sensor (FreeStyle #1 ea 09/11/23 Sridhar 2 Sensor kit) methocarbamol 500 mg tablet 500 mg PO TID PRN muscle spasm #30 09/15/24 tabs methylprednisolone 4 mg tablets in 4 mg PO DIRECTED 6 days #21 tabs 09/15/24 a dose pack Allergies Allergy/AdvReac Type Severity Reaction Status Date / Time amlodipine [From [facility]] Allergy Unknown Unknown Verified 06/21/24 14:10 allergy reaction losartan Allergy Unknown Unknown Verified 06/21/24 14:10 allergy reaction pravastatin AdvReac Mild nausea Verified 06/21/24 14:10 fentanyl AdvReac Verified 06/21/24 14:10 midazolam [From [facility]] AdvReac Verified 06/21/24 14:10 Worker's Comp Is this a Worker's Comp case?: No [facility] Disclaimer: The information contained in this section may have been updated after the patient was seen, as this information can be updated by other users. Medical History Carotid artery stenosis Gastroesophageal reflux disease Sleep apnea Diabetes mellitus HLD (hyperlipidemia) HTN (hypertension) CAD (coronary artery disease) Surgical History Hx of CABG H/O heart artery stent History of surgery on arm History of hip replacement Family History Sister Cancer Coronary artery disease Diabetes Brother Cancer Coronary artery disease Diabetes Father Diabetes Social History Smoking Status: Never smoker second hand exposure: No alcohol intake: never substance use type: denies use current occupational status: employed Travel in the last 8 weeks: None household members: children housing: house current occupational exposures/hazards: No caffeine: Yes ROS Obtained: Yes All systems reviewed & no additional complaints except as documented Constitutional Constitutional: Denies chills and Denies fever(s) Eyes Eyes: Denies eye discharge ENT Ears, Nose, Mouth, and Throat: Denies dizziness, Denies otalgia, Reports neck pain and Denies sore throat Cardiovascular Cardiovascular: Denies chest pain Respiratory Respiratory: Denies shortness of breath, Denies chest congestion, Denies cough, Denies stridor and Denies wheezing Gastrointestinal Gastrointestingal: Denies nausea or vomiting Musculoskeletal Musculoskeletal: Reports back pain, Reports neck pain and Denies numbness Integumentary/Breasts Skin/Breast: Denies rash Neurologic Neurologic: Denies dizziness, Denies numbness, Denies paresthesias and Denies radicular pain Allergic/Immunologic Allergic/Immunologic: Denies wheezing Physical Exam General General appearance: alert and in no apparent distress Head Head exam: atraumatic, normocephalic and normal inspection Eye Eye exam: Present normal appearance, PERRL and EOMI ENT ENT exam: Present normal exam, normal oropharynx, mucous membranes moist, TM's normal bilaterally and normal external ear exam Neck Neck exam: Present normal inspection, full ROM and trachea midline; Absent meningismus or lymphadenopathy Chest Chest inspection: Present normal inspection and symmetric chest wall rise; Absent tenderness Respiratory Respiratory exam: Present normal lung sounds bilaterally; Absent respiratory distress Cardiovascular Cardiovascular exam: Present regular rate and normal rhythm; Absent JVD Abdominal Exam Abdominal exam: Present soft and normal bowel sounds; Absent distention, tenderness or guarding Extremities Exam Extremities exam: Present normal inspection, full ROM and normal capillary refill; Absent calf tenderness Back Exam Back exam: Present normal inspection; Absent tenderness Neurological Exam Neurological exam: Present alert, oriented X3, CN II-XII intact, normal gait and reflexes normal; Absent motor sensory deficit Expanded Neurological Exam Cranial nerves: Normal: EOM function (II, III, IV, ), facial sensation (V), facial palsy (VII), gag reflex (IX), spinal accessory function (XI) and tongue deviation (XII) Cerebellar function: normal gait Motor strength - LUE: 5/5 Motor strength - RUE: 5/5 Motor strength - LLE: 5/5 Motor strength - RLE: 5/5 Upper motor neuron exam: Normal: fina neglect and sensory extinction Sensory exam upper extremity: Normal: light touch and 2 point discrimination Sensory exam lower extremity: Normal: light touch and 2 point discrimination DTR: 2+: biceps (L), biceps (R), patellar (L), patellar (R), Achilles tendon (L) and Achilles tendon (R) Spinal cord function: Absent saddle anesthesia Psychiatric Psychiatric exam: Present normal affect and normal mood Skin Skin exam: Present warm, dry, intact and normal color Lymphatic Lymphatic Findings: no adenopathy Medical Decision Making Medical Records Medical records reviewed: No I reviewed the patient's medical records. Screening: Per USPSTF and CDC recommendations, given the prevalence of disease in our region, it is our hospital?s policy to screen for HIV and viral Hepatitis for all patients aged 18 and over and those with ongoing risk factors. Freddie Inquiry Pt receiving controlled substance: No Vital Signs: 09/15/24 15:05 09/15/24 15:41 Temperature 97.9 F 97.9 F Temperature Source Oral Pulse Rate 76 Pulse Rate [Left Brachial] 76 Respiratory Rate 20 20 Blood Pressure 136/87 Blood Pressure [Left Arm] 136/87 Blood Pressure Mean [Left Arm] 103 Blood Pressure Source [Left Arm] Automatic Cuff Blood Pressure Position [Left Arm] Sitting 02 Sat by Pulse Oximetry 97 Oxygen Delivery Method Room Air Orders (Tests/Meds): ED MEDICATIONS Discontinued Medications Generic Name Dose Route Start Last Admin Trade Name Freq PRN Reason Stop Dose Admin Dexamethasone Sodium Phosphate 8 mg 09/15/24 15:26 09/15/24 15:34 Dexamethasone 4mg/Ml 1ml Vial IM 09/15/24 15:27 8 mg ONCE ONE Administration Ketorolac Tromethamine 60 mg 09/15/24 15:26 09/15/24 15:34 Ketorolac 60mg/2ml Vial IM 09/15/24 15:27 60 mg ONCE ONE Administration
== END 2024-09-15 15:43 | disposition home or self-care (01) ==
PROVIDERS: Emergency Provider Nurse Practitioner Family; PCP Family Medicine
DX: M43.6 Torticollis (principal); M54.2 Cervicalgia; M25.511 Pain in right shoulder; M25.512 Pain in left shoulder; M25.561 Pain in right knee; M25.562 Pain in left knee
CPT/HCPCS: 96372; 99212; G0381; J1100; J1885

== ENCOUNTER 2024-09-26 12:21 | Outpatient (CLI) | payer MEDICARE, SELFPAY ==
--- NOTE | 2024-09-26 12:40 | CA_ITS ---
FINAL REPORT TECHNIQUE: Duplex color Doppler with spectral analysis performed of the lower extremities. CLINICAL HISTORY: bilateral leg pain with and without exertion, DM, HLD, cardiac stents FINDINGS: RIGHT LOWER EXTREMITY: Velocities cm/sec: CLINICAL PARTNER: 119.7 SFA Prox: 77 SFA Mid: 81 SFA Dist: 66 POP: 100 MAILROOM SUPERVISOR: 77 Dorsalis Pedis: 38 Waveforms are triphasic and biphasic. LEFT LOWER EXTREMITY: Velocities cm/sec: CLINICAL PARTNER: 94 SFA Prox: 60 SFA Mid: 83 SFA Dist: 73 POP: 71 Margaret: 40 MAILROOM SUPERVISOR: 89 Dorsalis Pedis: 9.6 Waveforms are biphasic. IMPRESSION: No significant peripheral artery disease. Reviewed, Interpreted and Dictated by Adi Shafer III, MD Transcribed by Che Amaro Authenticated and . [facility]
--- NOTE | 2024-09-26 13:51 | XR_ITS ---
PROCEDURE INFORMATION: Exam: XR Lumbosacral Spine Exam date and time: 09/26/2024 2:09 PM Age: 74 years old Clinical indication: Low back pain TECHNIQUE: Imaging protocol: Radiologic exam of the lumbosacral spine. Views: 2 or 3 views. COMPARISON: CT ABDOMEN PELVIS WO CON 08/24/2023 11:01 AM FINDINGS: Limitations: Off orthogonal lateral views limit evaluation for spondylolisthesis. Bones/joints: There are 5 [id number] vertebral bodies in the lumbar spine. No evidence of acute fracture. Multi-level degenerative disc disease and facet arthropathy, most prominent from L4-S1. Soft tissues: Unremarkable. IMPRESSION: 1. No evidence of acute osseous abnormality in the lumbar spine. 2. Multi-level degenerative disc disease and facet arthropathy, most prominent from L4-S1.
== END 2024-09-26 23:59 | disposition home or self-care (01) ==
LOC: RT 12:23
PROVIDERS: PCP Family Medicine; Visit Provider Family Medicine
DX: I73.9 Peripheral vascular disease, unspecified (principal); M54.9 Dorsalgia, unspecified
CPT/HCPCS: 72100; 93925

== ENCOUNTER 2024-09-28 19:51 | Outpatient (CLI) | payer MEDICARE, SELFPAY ==
[2024-09-28 20:14] LABS: Basophils % 0.4 % (0.1-2.0); Eosinophils # 0.2 K/mm3 (0.0-0.4); Eosinophils % 2.5 % (0.1-12.0); Hematocrit 44.1 % (42.0-52.0); Hemoglobin 14.9 g/dL (14.1-18.0); Lymphocytes # 1.5 K/mm3 (0.7-4.5); Lymphocytes % 18.2 % (10-50); Mean Corpuscular HGB Conc 33.7 g/dL (31.8-35.4); Mean Corpuscular Hemoglobin 30.9 pg (27.0-31.2); Mean Corpuscular Volume 91.6 fl (80-94); Mean Platelet Volume 8.6 fl (7.4-10.4); Monocytes # 0.6 K/mm3 (0.1-1.0); Monocytes % 6.6 % (1.7-9.3); Neutrophils % 72.3 % (37.0-80.0); Platelet Count 188 K/mm3 (142-424); Red Blood Count 4.82 M/mm3 (4.60-6.20); Red Cell Distribution Width 13.8 % (11.5-17.5); White Blood Count 8.4 K/mm3 (4.8-10.8)
[2024-09-28 20:21] LABS: Chloride 105 mmol/L (98-107); Potassium 4.7 mmoL/L (3.5-5.1); Sodium 137 mmol/L (136-145)
[2024-09-28 20:24] LABS: Anion Gap 11.7 mEq/L (5-15); Blood Urea Nitrogen 21 mg/dl (9-20); Calcium 9.1 mg/dl (8.4-10.2); Carbon Dioxide 25 mmol/L (22.0-30.0); Estimated Glomerular Filt Rate 59 ml/min (>60); GFR (African American) 71 ML/MIN (>60); Glucose 185 mg/dl (74-100)
[2024-09-28 20:33] LABS: Hemoglobin A1C 6.9 % (4.0-6.0)
== END 2024-09-28 23:59 | disposition home or self-care (01) ==
LOC: LAB.DROPOF 19:53
PROVIDERS: PCP Orthopaedic Surgery; Visit Provider Orthopaedic Surgery
DX: E11.9 Type 2 diabetes mellitus without complications (principal)
CPT/HCPCS: 80048; 83036; 85025

== ENCOUNTER 2024-10-10 14:34 | Emergency (ER) | payer MEDICARE, SELFPAY ==
[2024-10-10 14:37] VITALS: BP 206/111; PULSE 84; RESP 18; TEMP 36.8; O2SAT 94; BMI 28.7
--- NOTE | 2024-10-10 14:55 | ED_ITS ---
Discharge Plan Disposition Patient Disposition: Home, Self-Care Prescriptions Prescriptions: No Action (DME) FreeStyle Sridhar 2 Sensor Kit See Rx Instructions .Route Qty: 1 8RF Rx Instructions: As directed (DME) FreeStyle Sridhar 2 [place] Misc See Rx Instructions .Route Qty: 1 1RF Rx Instructions: As directed (DME) pen needle, diabetic [Pen Needle] 31 gauge x 1/4 needle See Rx Instructions .Route Qty: 100 1RF Rx Instructions: As directed terazosin 5 mg capsule 5 mg PO DAILY Patient Comments: TAKE 2 CAPSULES BY MOUTH DAILY FOR HIGH BLOOD PRESSURE carvedilol 12.5 mg tablet 12.5 mg PO DAILY Patient Comments: TAKE 1 TABLET BY MOUTH TWICE DAILY WITH MEAL/FOOD clopidogrel 75 mg tablet 75 mg PO DAILY Patient Comments: TAKE 1 TABLET BY MOUTH DAILY omeprazole 40 mg capsule,delayed release(DR/EC) 40 mg PO DAILY glimepiride 4 mg tablet 4 mg PO DAILY aspirin 81 mg tablet,chewable 81 mg PO DAILY Patient Comments: CHEW AND SWALLOW 1 TABLET BY MOUTH DAILY FOR HEART HEALTH ezetimibe 10 mg tablet 10 mg PO DAILY Patient Comments: TAKE 1 TABLET BY MOUTH DAILY FOR CHOLESTEROL Mounjaro 2.5 mg/0.5 mL pen injector 2.5 mg SQ WEEKLY methylprednisolone 4 mg Tablets,Dose Pack 4 mg PO DIRECTED 6 Days Qty: 21 0RF Rx Instructions: Take 1 pack as directed for 6 days methocarbamol 500 mg tablet 500 mg PO TID PRN (Reason: muscle spasm) Qty: 30 0RF Referrals Follow up/Referrals: Herminio Jo MD [Primary Care Provider] - See instructions Activity Restrictions/Add. Instructions Additional Instructions/Restrictions: As we discussed, should you have not any increasing redness pain swelling drainage fever etc. follow-up with Dr. Sandoval or return to the ER as needed. Please keep your regularly scheduled appointment with Dr. Sandoval as he instructed. Please continue with physical therapy as instructed. Clinical Impressions Clinical Impression: Contact dermatitis Qualifiers: Contact dermatitis type: unspecified Contact dermatitis trigger: unspecified trigger Qualified Code(s): L25.9 - Unspecified contact dermatitis, unspecified cause Post-operative complication Qualifiers: Surgical complication system/body Area: musculoskeletal system Procedure type: musculoskeletal Print Language Print Language: Zambian Discharge ED Provider: Alfonso Patel General Adult HPI <YOU Ornelas - Last Filed: 10/10/24 16:15> General Chief complaint: Skin/Abscess/Foreign Body Stated complaint: blood blister on incision Time Seen by Provider: 10/10/24 14:54 History of Present Illness HPI narrative: Patient presents for evaluation of postoperative complication. Patient had a right total knee arthroplasty done by Dr. Jorge sandoval at [facility] in [place] on . He reports that he has had increasing pain redness and overnight a blister has developed along the incision protective tape. He denies any fever chills hemoptysis hematochezia melena nausea vomiting diarrhea. Related Data Home Medications ?Medication ?Instructions ?Recorded ?Confirmed aspirin 81 mg chewable tablet 81 mg PO DAILY 09/15/24 09/21/24 carvedilol 12.5 mg tablet 12.5 mg PO DAILY 09/15/24 09/21/24 clopidogrel 75 mg tablet 75 mg PO DAILY 09/15/24 09/21/24 ezetimibe 10 mg tablet 10 mg PO DAILY 09/15/24 09/21/24 glimepiride 4 mg tablet 4 mg PO DAILY 09/15/24 09/21/24 omeprazole 40 mg capsule,delayed 40 mg PO DAILY 09/15/24 09/21/24 release terazosin 5 mg capsule 5 mg PO DAILY 09/15/24 09/21/24 tirzepatide 2.5 mg/0.5 mL 2.5 mg SQ WEEKLY 09/15/24 09/21/24 subcutaneous pen injector (Arely) Previous Rx's ?Medication ?Instructions ?Recorded flash glucose scanning reader #1 ea 09/07/23 (FreeStyle Sridhar 2 [place]) pen needle, diabetic 31 gauge x #100 ea 09/07/2311/26 (Pen Needle) flash glucose sensor (FreeStyle #1 ea 09/11/23 Sridhar 2 Sensor kit) methocarbamol 500 mg tablet 500 mg PO TID PRN muscle spasm #30 09/15/24 tabs methylprednisolone 4 mg tablets in 4 mg PO DIRECTED 6 days #21 tabs 09/15/24 a dose pack Allergies Allergy/AdvReac Type Severity Reaction Status Date / Time amlodipine (From [facility]) Allergy Unknown Unknown Verified 09/21/24 12:42 allergy reaction losartan Allergy Unknown Unknown Verified 09/21/24 12:42 allergy reaction pravastatin AdvReac Mild nausea Verified 09/21/24 12:42 fentanyl AdvReac Verified 09/21/24 12:42 midazolam (From [facility]) AdvReac Verified 09/21/24 12:42 PFSH <YOU Ornelas - Last Filed: 10/10/24 16:15> [facility] Disclaimer: The information contained in this section may have been updated after the patient was seen, as this information can be updated by other users. Medical History Carotid artery stenosis Gastroesophageal reflux disease Sleep apnea Diabetes mellitus HLD (hyperlipidemia) HTN (hypertension) CAD (coronary artery disease) Surgical History Hx of CABG H/O heart artery stent History of surgery on arm History of hip replacement Family History Sister Cancer Coronary artery disease Diabetes Brother Cancer Coronary artery disease Diabetes Father Diabetes Social History Smoking Status: Never smoker second hand exposure: No alcohol intake: never substance use type: denies use current occupational status: employed Travel in the last 8 weeks: None household members: children housing: house current occupational exposures/hazards: No caffeine: Yes Other Medical History Have you received the Flu Vaccine for this season: No Have you received the Pneumonia Vaccine: Yes <YOU Ornelas - Last Filed: 10/10/24 16:15> ROS Obtained: Yes Systems reviewed as appropriate & no additional complaints except as documented Physical Exam <YOU Ornelas - Last Filed: 10/10/24 16:15> General General appearance: alert and in no apparent distress Respiratory Respiratory exam: Present normal lung sounds bilaterally Cardiovascular Cardiovascular exam: Present regular rate Neurological Exam Neurological exam: Present alert and oriented X3 Medical Decision Making <YOU Ornelas - Last Filed: 10/10/24 16:15> Medical Records Screening: Per USPSTF and CDC recommendations, given the prevalence of disease in our region, it is our hospital?s policy to screen for HIV and viral Hepatitis for all patients aged 18 and over and those with ongoing risk factors. Freddie Inquiry Pt receiving controlled substance: No Vital Signs: 10/10/24 14:37 10/10/24 16:01 10/10/24 16:27 Temperature 98.3 F Temperature Source Oral Pulse Rate Pulse Rate [Left Radial] 84 Respiratory Rate 18 Blood Pressure 194/107 H 165/100 H Blood Pressure [Right Arm] 206/111 H Blood Pressure Mean 116 121 Blood Pressure Mean [Right Arm] 142 Blood Pressure Source Blood Pressure Source [Right Arm] Automatic Cuff Blood Pressure Position Blood Pressure Position [Right Arm] Sitting 02 Sat by Pulse Oximetry 94 L 97 97 Oxygen Delivery Method Room Air 10/10/24 16:46 Temperature 98.3 F Temperature Source Oral Pulse Rate 80 Pulse Rate [Left Radial] Respiratory Rate 18 Blood Pressure 165/100 H Blood Pressure [Right Arm] Blood Pressure Mean Blood Pressure Mean [Right Arm] Blood Pressure Source Automatic Cuff Blood Pressure Source [Right Arm] Blood Pressure Position Sitting Blood Pressure Position [Right Arm] 02 Sat by Pulse Oximetry Oxygen Delivery Method Room Air Medical Decision Narrative: In summary patient is a 74-year-old male who presents to the emergency department for evaluation of postoperative complication. Patient is initially hypertensive with a blood pressure of 206/111 upon arrival, afebrile. Physical exam is remarkable for erythema surrounding the suture line covering material that was placed postoperatively. It appears to be tight although I do not know for sure if that is what it is. At the distal medial aspect there is a 2 cm clear bulla underneath. There appears to be irritation at all along the edges. Laterally there is erythema but no fluctuance. It appears to be normal postoperative redness but again there is no fluctuance no lymphangitis.. Differential diagnosis includes allergic reaction versus apical irritation versus postop infection [employer]eter[employer]. Initial workup was considered however patient currently has no red flags thus is deferred for now. Initial interventions also were considered however is deferred until his surgeon is notified. I personally contacted Dr. Sandoval's office and sent them photos. Weight their decision on what the best course of action is. Dr. Delgado responded back and specifically said to leave the mesh covering over the suture line in place. That the patient could shower. He needed to follow-up in his office as scheduled. He wanted him to continue with PT as scheduled. Given that informed the patient of Dr. Sandoval's instructions in addition to telling the patient should he have any worsening signs or symptoms that he should present directly to Dr. Sandoval's office for evaluation and I gave him strict return precautions. <Alfonso Patel MD - Last Filed: 10/10/24 20:54> Vital Signs: 10/10/24 14:37 10/10/24 16:01 10/10/24 16:27 Temperature 98.3 F Temperature Source Oral Pulse Rate Pulse Rate [Left Radial] 84 Respiratory Rate 18 Blood Pressure 194/107 H 165/100 H Blood Pressure [Right Arm] 206/111 H Blood Pressure Mean 116 121 Blood Pressure Mean [Right Arm] 142 Blood Pressure Source Blood Pressure Source [Right Arm] Automatic Cuff Blood Pressure Position Blood Pressure Position [Right Arm] Sitting 02 Sat by Pulse Oximetry 94 L 97 97 Oxygen Delivery Method Room Air 10/10/24 16:46 Temperature 98.3 F Temperature Source Oral Pulse Rate 80 Pulse Rate [Left Radial] Respiratory Rate 18 Blood Pressure 165/100 H Blood Pressure [Right Arm] Blood Pressure Mean Blood Pressure Mean [Right Arm] Blood Pressure Source Automatic Cuff Blood Pressure Source [Right Arm] Blood Pressure Position Sitting Blood Pressure Position [Right Arm] 02 Sat by Pulse Oximetry Oxygen Delivery Method Room Air Medical Decision Narrative: In summary patient is a 74-year-old male who presents to the emergency department for evaluation of postoperative complication. Patient is initially hypertensive with a blood pressure of 206/111 upon arrival, afebrile. Physical exam is remarkable for erythema surrounding the suture line covering material that was placed postoperatively. It appears to be tight although I do not know for sure if that is what it is. At the distal medial aspect there is a 2 cm clear bulla underneath. There appears to be irritation at all along the edges. Laterally there is erythema but no fluctuance. It appears to be normal postoperative redness but again there is no fluctuance no lymphangitis.. Differential diagnosis includes allergic reaction versus apical irritation versus postop infection Cetera. Initial workup was considered however patient currently has no red flags thus is deferred for now. Initial interventions also were considered however is deferred until his surgeon is notified. I personally contacted Dr. Sandoval's office and sent them photos. Weight their decision on what the best course of action is. Dr. Delgado responded back and specifically said to leave the mesh covering over the suture line in place. That the patient could shower. He needed to follow-up in his office as scheduled. He wanted him to continue with PT as scheduled. Given that informed the patient of Dr. Sandoval's instructions in addition to telling the patient should he have any worsening signs or symptoms that he should present directly to Dr. Sandoval's office for evaluation and I gave him strict return precautions. I was consulted by the ESHA, and we discussed the complexity of the problems being addressed. I approved the treatment and management plan for this patient's care in the Emergency Department, thus performing a substantive portion of the medical decision making. Alfonso Patel MD Critical Care <YOU Ornelas - Last Filed: 10/10/24 16:15> Critical Care Time Critical Care Time: No
[2024-10-10 16:01] VITALS: BP 194/107; O2SAT 97
[2024-10-10 16:27] VITALS: BP 165/100; O2SAT 97
[2024-10-10 16:46] VITALS: BP 165/100; PULSE 80; RESP 18; TEMP 36.8; O2SAT 97
== END 2024-10-10 16:48 | disposition home or self-care (01) ==
LOC: ER 15:01
PROVIDERS: Emergency Provider Emergency Medicine; PCP Family Medicine
DX: T81.9XXA Unspecified complication of procedure, initial encounter (principal); L25.9 Unspecified contact dermatitis, unspecified cause; M25.561 Pain in right knee; I10 Essential (primary) hypertension
CPT/HCPCS: 99282

== ENCOUNTER 2024-11-21 09:00 | Outpatient (RCR) | payer MEDICARE, SELFPAY ==
--- NOTE | 2024-10-13 09:55 | HMH.PTOPEV ---
PT Outpatient Evaluation Rehab PT Outpatient Evaluation Start: 10/13/24 09:42 Freq: Status: Active Protocol: Document 10/13/24 09:42 HERNAN (Rec: 10/13/24 09:55 HERNAN [id number]) E-signed By Julio Jones, PT Outpatient Therapy Subjective History Subjective History The pt is a 74 yom who presents to outpatient PT following a R TKA performed on 10/06/2024. He reports that he went to the ER the day after surgery due to a strawberry that showed up near his incision. He reports that the ER doctor conferred with his surgeon who directed him to continue PT as prescribed and to follow up with Dr. Sandoval as directed. The patient reports he has been dealing with a lot of pain since surgery. He reports that he was sent home with a few exercises but he has not done all of them. New diagnosis of cancer in past 12 No months? Chief Complaint Pain,Stiff,Swelling,Weakness Symptom Type Ache,Throb Symptoms Relieved By Rest/Positioning,Ice,OTC Meds Symptoms Aggravated By Sitting,Bending/Stooping, Walking,Lifting Prior Functional Limitations None Current Functional Limitations Lifting,Housework,Desk Work/ Reading,Sitting,Squatting, Walking,Stairs Symptom Description Constant but Variable Level of pain today (0-10) 9 Pain scale - at its best (0-10) 6 Pain scale - at its worst (0-10) 10 Hip/Knee Eval Gait Observation General Gait Pattern Observation Antalgic Gait,Decrease Weight Bear (R),Decrease Stride Lngth (L) Assistive Device Assistive Devices Rolling / Wheeled Walker Palpation Tenderness right Knee Palpation Finding Tenderness Knee Palpation Overall Comment TTP 3/4 martin-incision MMT Hip Flexion Strength Grade 4- Good- Hip Abduction Strength Grade 3+ Fair+ Hip Extension Strength Grade 3+ Fair+ Knee Extension Strength Grade 2 Poor Knee Flexion Strength Grade 2 Poor ROM Knee Extension Active Range of Motion ( -12 degrees) Knee Flexion Active Range of Motion ( 86 degrees) Effusion joint effusion knee exam standard right Mid - Patellar Circumerential Measure ( 53.5 cm) 5cm Proximal Circumference Measure (cm) 46.5 5cm Distal Circumference Measure (cm) 47.5 Lower Extremity Functional Index Activities Today, do you or would you have any difficulty at all with: a.Any of your usual work, housework or A little bit of difficulty school activities b. Your usual hobbies, recreational or Extreme difficulty or unable sporting activities to perform activity c. Getting into or out of the bath Quite a bit of difficulty d. Walking between rooms Quite a bit of difficulty e. Putting on your shoes or socks Extreme difficulty or unable to perform activity f. Squatting Extreme difficulty or unable to perform activity g. Lifting an object, like a bag of Extreme difficulty or unable groceries from the floor to perform activity h. Performing light activities around Quite a bit of difficulty your home i. Performing heavy activities around Extreme difficulty or unable your home to perform activity j. Getting into or out of a car Quite a bit of difficulty k. Walking 2 blocks Extreme difficulty or unable to perform activity l. Walking a mile Extreme difficulty or unable to perform activity m. Going up or down 10 stairs (about 1 Extreme difficulty or unable flight of stairs) to perform activity n. Standing for 1 hour Extreme difficulty or unable to perform activity o. Sitting for 1 hour Quite a bit of difficulty p. Running on even ground Extreme difficulty or unable to perform activity q. Running on uneven ground Extreme difficulty or unable to perform activity r. Making sharp turns while running fast Extreme difficulty or unable to perform activity s. Hopping Extreme difficulty or unable to perform activity t. Rolling over in bed Quite a bit of difficulty LEFI Score Lower Extremity Functional Index Score 9 Outpatient Therapy Assessment Impairments Problems/Impairmments Palpation Tenderness,Impaired Range of Motion,Impaired Strength,Impaired Gait Pattern ,Impaired Walking,Impaired Standing,Impaired Sitting, Impaired Lifting,Impaired Household Care,Impaired Recreational Activities, Impaired Work Activities, Subjective C/O Pain Prognosis Rehab Potential Good Clinical Impression Consistent with Diagnosis Yes Short Term Goals Number of Weeks 4 Decreased Palpation Tenderness Yes: 14 to R knee Increase Range of Motion Yes: 0-115 R knee Increase Strength Yes: 02/25 to R knee/hip Improve Gait Pattern with Assistive Yes: No gait abnormalities Device with AAD Increase Ability to Stand Yes: 1 hour 3/10 pain Increase Ability to Sit Yes: 1 hour 3/10 pain Improve LEFI Score Yes: to 20 Decrease Edema Yes: by 5% Decrease Subjective C/O Pain Yes: 05/02 at worst Patient to be Ind w/ HEP Yes Shelter Goals Number of Weeks 8 Decreased Palpation Tenderness Yes: 0/4 TTP Increase Range of Motion Yes: 0-130 R knee Increase Strength Yes: 5/5 to R knee/hip Improve Gait Pattern without Assistive Yes: No gait abnormalities Device Increase Ability to Stand Yes: 1 hour no pain Increase Ability to Sit Yes: 1 hour no pain Improve LEFI Score Yes: to 35 Decrease Edema Yes: by 10% Decrease Subjective C/O Pain Yes: 2/10 at worst Patient to be Ind w/ Advanced HEP Yes Outpatient Therapy Plan of Care Treatment Plan May Include Therapeutic Exercise Including Home Yes Exercise Program Manual Therapy Techniques Yes Neuromuscular Re-education Yes Therapeutic Activities to Return to Yes Previous Functional/Work Level Gait Training Yes ADL/Self Care Education Yes Thermal Modalities Yes Electrical Stimulation Yes Ultrasound/Phonophoresis Yes Massage Yes Manual Lymphatic Drainage Yes Eval/Re-Eval Yes Frequency Times per week 3 Duration Number of Weeks 8 Addendums This patient is a candidate for social No or vocational rehab? Patient/Guardian verbally acknowledges Yes understanding of treatment program and consents to further treatment? Patient/Guardian verbally acknowledges Yes understanding of diagnosis, prognosis and goals for treatment? Eval Complexity PT Charges 69062 - Moderate Complexity Shoulder/Elbow Eval Shoulder Objective Measurements Elbow Objective Measurements PHYSICIAN CERTIFICATION: I certify the specified therapy services for Ruy Guerrero are required, authorized, and reviewed every 30 days.
== END 2024-11-21 23:59 | disposition home or self-care (01) ==
LOC: PT 09:00
PROVIDERS: Visit Provider Orthopaedic Surgery
DX: M17.11 Unilateral primary osteoarthritis, right knee (principal); Z96.651 Presence of right artificial knee joint
CPT/HCPCS: 97014; 97110; 97140; 97163; 97530; G0283

== ENCOUNTER 2024-12-05 08:55 | Outpatient (RCR) | payer MEDICARE, SELFPAY | END 2024-12-05 23:59 | disposition home or self-care (01) | LOC: PT 08:55 | PROVIDERS: Visit Provider Orthopaedic Surgery | DX: Z98.890 Other specified postprocedural states (principal); Z96.651 Presence of right artificial knee joint; M17.11 Unilateral primary osteoarthritis, right knee | CPT/HCPCS: 97110; 97530 ==

== ENCOUNTER 2025-02-06 22:33 | Observation (INO) | payer MEDICARE, SELFPAY ==
[2025-02-06 22:47] VITALS: BP 207/107; PULSE 80; RESP 14; O2SAT 96
[2025-02-06 22:48] VITALS: BP 238/117; PULSE 115; RESP 18; TEMP 37.1; O2SAT 97; BMI 29.5
[2025-02-06 23:00] VITALS: BP 211/102; PULSE 79; RESP 14; O2SAT 98
--- NOTE | 2025-02-06 23:14 | CT_ITS ---
PROCEDURE INFORMATION: Exam: CTA Head With Contrast, Arteriography Exam date and time: 02/06/2025 11:51 PM Age: 74 years old Clinical indication: Stroke-like symptoms; Speech disturbance; Additional info: Abnormal speech pattern TECHNIQUE: Imaging protocol: Computed tomographic angiography of the head with contrast. Exam focused on the arteries. 3D rendering (Not supervised by radiologist): MIP and/or 3D reconstructed images were created by the technologist. Radiation optimization: All CT scans at this facility use at least one of these dose optimization techniques: automated exposure control; mA and/or kV adjustment per patient size (includes targeted exams where dose is matched to clinical indication); or iterative reconstruction. Contrast material: ISOVUE; Contrast volume: 80 ml; Contrast route: INTRAVENOUS (IV); COMPARISON: CT HEAD/BRAIN WO CON 02/06/2025 11:49 PM FINDINGS: ANTERIOR CIRCULATION: Right internal carotid artery: Intracranial segment is patent with no significant stenosis. No aneurysm. Right middle cerebral artery: No occlusion or significant stenosis. No aneurysm. Right anterior cerebral artery: No occlusion or significant stenosis. No aneurysm. Left internal carotid artery: Intracranial segment is patent with no significant stenosis. No aneurysm. Left middle cerebral artery: No occlusion or significant stenosis. No aneurysm. Left anterior cerebral artery: No occlusion or significant stenosis. No aneurysm. POSTERIOR CIRCULATION: Right vertebral artery: No occlusion or significant stenosis. No aneurysm. Left vertebral artery: No occlusion or significant stenosis. No aneurysm. Basilar artery: No occlusion or significant stenosis. No aneurysm. Right posterior cerebral artery: No occlusion or significant stenosis. No aneurysm. Left posterior cerebral artery: No occlusion or significant stenosis. No aneurysm. Brain: No definite mass, mass effect, or midline shift. Cerebral ventricles: No ventriculomegaly. Bones/joints: Unremarkable. No acute fracture. Soft tissues: Unremarkable. Other findings: No evidence for large vessel occlusion. [id number] intracranial atherosclerotic stenosis of the M2 branches of the bilateral middle cerebral arteries image 7/397. Mild to moderately severe intracranial atherosclerotic stenosis the bilateral posterior cerebral artery segments image 7/396. IMPRESSION: 1. No evidence for large vessel occlusion. 2. [id number] intracranial atherosclerotic stenosis of the M2 branches of the bilateral middle cerebral arteries image 7/397. 3. Mild to moderately severe intracranial atherosclerotic stenosis the bilateral posterior cerebral artery segments image 7/396.
--- NOTE | 2025-02-06 23:15 | CT_ITS ---
PROCEDURE INFORMATION: Exam: CTA Neck With Contrast Exam date and time: 02/06/2025 11:51 PM Age: 74 years old Clinical indication: Stroke-like symptoms; Speech disturbance; Additional info: Abnormal speech pattern TECHNIQUE: Imaging protocol: Computed tomographic angiography of the neck with contrast. Exam focused on the cervical segments of the vasculature. 3D rendering (Not supervised by radiologist): MIP and/or 3D reconstructed images were created by the technologist. Radiation optimization: All CT scans at this facility use at least one of these dose optimization techniques: automated exposure control; mA and/or kV adjustment per patient size (includes targeted exams where dose is matched to clinical indication); or iterative reconstruction. Contrast material: ISOVUE; Contrast volume: 80 ml; Contrast route: INTRAVENOUS (IV); COMPARISON: CT HEAD/BRAIN WO CON 02/06/2025 11:49 PM FINDINGS: Right common carotid artery: Calcific plaque right carotid bifurcation without hemodynamically significant stenosis. Right internal carotid artery: No stenosis of the extracranial segment. No dissection or occlusion. Right external carotid artery: No occlusion or stenosis of the origin. Left common carotid artery: Moderate calcific plaque left carotid bifurcation without hemodynamically significant stenosis. Left internal carotid artery: No stenosis of the extracranial segment. No dissection or occlusion. Left external carotid artery: No occlusion or stenosis of the origin. Right vertebral artery: No stenosis. No dissection or occlusion. Left vertebral artery: No stenosis. No dissection or occlusion. Soft tissues: Normal. No significant soft tissue swelling. Bones/joints: No acute fracture. IMPRESSION: 1. Calcific plaque right carotid bifurcation without hemodynamically significant stenosis. 2. Moderate calcific plaque left carotid bifurcation without hemodynamically significant stenosis. REFERENCES: NASCET CRITERIA. The degree of stenosis in the cervical segment of the internal carotid artery is based on NASCET criteria. Normal is no stenosis. Mild is less than 50% stenosis. Moderate is 50-69% stenosis. Severe is 70% to 99% stenosis. Total occlusion is no detectable patent lumen.
--- NOTE | 2025-02-06 23:15 | XR_ITS ---
PROCEDURE INFORMATION: Exam: XR Chest Exam date and time: 02/06/2025 11:34 PM Age: 74 years old Clinical indication: Other: AMS TECHNIQUE: Imaging protocol: Radiologic exam of the chest. Views: 1 view. COMPARISON: CT CHEST WO CON 08/23/2023 4:04 PM FINDINGS: Lungs: Unremarkable. No consolidation. Pleural spaces: Unremarkable. No pleural effusion. No pneumothorax. Heart/Mediastinum: Unremarkable. No cardiomegaly. Bones/joints: Unremarkable. Sternotomy wires. IMPRESSION: No acute findings.
--- NOTE | 2025-02-06 23:15 | CT_ITS ---
PROCEDURE INFORMATION: Exam: CT Head Without Contrast Exam date and time: 02/06/2025 11:49 PM Age: 74 years old Clinical indication: Stroke-like symptoms; Speech disturbance; Additional info: Abnormal speech pattern TECHNIQUE: Imaging protocol: Computed tomography of the head without contrast. Radiation optimization: All CT scans at this facility use at least one of these dose optimization techniques: automated exposure control; mA and/or kV adjustment per patient size (includes targeted exams where dose is matched to clinical indication); or iterative reconstruction. Other technique: STROKE PROTOCOL was implemented. COMPARISON: CT HEAD/BRAIN WO CON 06/28/2024 10:08 AM FINDINGS: Brain: No evidence for intracranial hemorrhage, mass lesions or acute stroke. Intracranial vascular calcifications. Mild small vessel ischemic change in the periventricular white matter. Lacunar infarct right basal ganglia extending into the body of the right caudate image 35-37. Cerebral ventricles: Mild ventricular prominence. Pituitary gland and sella: Negative Paranasal sinuses: Visualized sinuses are unremarkable. No fluid levels. Mastoid air cells: Visualized mastoid air cells are well aerated. Orbital cavities: Bilateral cataract extractions. Bones: Unremarkable. No acute fracture. Soft tissues: Unremarkable. Vasculature: Negative. Other findings: Mild generalized atrophy. IMPRESSION: 1. No evidence for intracranial hemorrhage, mass lesions or acute stroke. 2. Intracranial vascular calcifications. 3. Mild generalized atrophy. 4. Mild small vessel ischemic change in the periventricular white matter. 5. Lacunar infarct right basal ganglia extending into the body of the right caudate image 3/35-37. 6. Mild ventricular prominence. ASSESSMENT: ASPECTS ([facility] Stroke Program Early CT Score) is 10.
--- NOTE | 2025-02-06 23:18 | ED_ITS ---
Discharge Plan Disposition Patient Disposition: Admitted Clinical Impressions Clinical Impression: Stroke-like symptoms Discharge ED Provider: Siva Dow General Adult HPI General Chief complaint: Neuro Symptoms/Deficit Stated complaint: slurred speach,dry mouth Time Seen by Provider: 02/06/25 23:00 Mode of Arrival: Ambulatory Source of Information: Patient and Relative Description of Symptoms (Recalled from ER Triage Doc. by RN): pt presents with c/o slurred speech and trouble speaking with confusion per family that began a month ago FAST negative at time of triage. History of Present Illness HPI narrative: 74 male with a of coronary artery disease, hypertension, hyperlipidemia diabetes presents for trouble speaking. Patient reports has been going on for a month. Family thinks that he has been different for the last few weeks at least but they are not sure exactly when. They came in tonight because when they spoke with him today it seemed to be worse. They report that he is talking out of his head . He is understandable in terms of his pronunciation, but his word choice and fluency are affected. He denies any focal numbness or weakness that is new. Denies history of stroke in the past. Denies any recent infectious symptoms. He reports that he has been more confused over the last few months, but his speech pattern is definitely different today. Related Data Home Medications ?Medication ?Instructions ?Recorded ?Confirmed aspirin 81 mg chewable tablet 81 mg PO DAILY 09/15/24 02/07/25 terazosin 5 mg capsule 5 mg PO DAILY 09/15/24 02/07/25 Previous Rx's ?Medication ?Instructions ?Recorded ezetimibe 10 mg tablet See Rx Instructions .Route 12/05/24 .COMPLEX #90 tabs carvedilol 12.5 mg tablet 12.5 mg PO DAILY 90 days #90 tabs 01/02/25 omeprazole 40 mg capsule,delayed See Rx Instructions .Route 01/02/25 release .COMPLEX #90 caps Allergies Allergy/AdvReac Type Severity Reaction Status Date / Time amlodipine (From Norvasc) Allergy Unknown Unknown Verified 09/21/24 12:42 allergy reaction losartan Allergy Unknown Unknown Verified 09/21/24 12:42 allergy reaction pravastatin AdvReac Mild nausea Verified 09/21/24 12:42 fentanyl AdvReac Verified 09/21/24 12:42 midazolam (From Versed) AdvReac Verified 09/21/24 12:42 PFSH PFSH Disclaimer: The information contained in this section may have been updated after the patient was seen, as this information can be updated by other users. Medical History (Updated 02/07/25 @ 01:57 by Jacob Don APRN) Coronary artery disease Carotid artery stenosis Gastroesophageal reflux disease Sleep apnea Diabetes mellitus HLD (hyperlipidemia) HTN (hypertension) CAD (coronary artery disease) Surgical History (Updated 02/07/25 @ 01:57 by Jacob Don APRN) Knee joint replacement status Hx of CABG H/O heart artery stent History of surgery on arm History of hip replacement Family History Sister Cancer Coronary artery disease Diabetes Brother Cancer Coronary artery disease Diabetes Father Diabetes Social History (Updated 02/07/25 @ 02:21 by Agnes Jack RN) Smoking Status: Never smoker second hand exposure: No alcohol intake: never substance use type: denies use current occupational status: employed Travel in the last 8 weeks: None household members: children housing: house current occupational exposures/hazards: No caffeine: Yes Have you lived/traveled outside [place] in past 30 days?: No Contact w/someone who lives/traveled outside [place] past 30 days?: No Exposure to someone with infectious disease in past 14 days?: No Do you have a fever (greater than 100.4 F or 38 C)?: No Have you tested positive for COVID-19: No Exposed to someone with COVID-19 in past 14 days?: No Do you have a sore throat?: No Do you have a cough?: No Do you have any weakness?: No Are you experiencing any nausea/vomitting?: No Do you have any diarrhea?: No Are you experiencing any unusual bleeding?: No Do you have any muscle aches/pain?: No Do you have any abdominal pain?: No Are you experiencing loss of taste or smell?: No Other Medical History Have you received the Flu Vaccine for this season: No Have you received the Pneumonia Vaccine: Yes ROS Obtained: Yes All systems reviewed & no additional complaints except as documented Physical Exam General General appearance: alert and in no apparent distress Head Head exam: atraumatic and normocephalic Eye Eye exam: Present normal appearance, PERRL and EOMI ENT ENT exam: Present normal oropharynx and normal external ear exam Neck Neck exam: Present normal inspection and full ROM Chest Chest inspection: Present normal inspection and symmetric chest wall rise; Absent tenderness Respiratory Respiratory exam: Present normal lung sounds bilaterally; Absent respiratory distress Cardiovascular Cardiovascular exam: Present regular rate and normal rhythm Abdominal Exam Abdominal exam: Present soft; Absent distention, tenderness or guarding Extremities Exam Extremities exam: Present normal inspection; Absent edema or joint swelling Back Exam Back exam: Present normal inspection; Absent tenderness Neurological Exam Neurological exam: Present alert, oriented X3, CN II-XII intact and other (Word finding difficulties and somewhat abnormal speech pattern); Absent motor sensory deficit Psychiatric Psychiatric exam: Present normal affect and normal mood Skin Skin exam: Present warm, dry and normal color Lymphatic Lymphatic Findings: no adenopathy Medical Decision Making Medical Records Medical records reviewed: Yes I reviewed the patient's medical records. Screening: Per USPSTF and CDC recommendations, given the prevalence of disease in our region, it is our hospital?s policy to screen for HIV and viral Hepatitis for all patients aged 18 and over and those with ongoing risk factors. Freddie Inquiry Pt receiving controlled substance: No Freddie was queried for this patient: No Vital Signs: 02/06/25 22:47 02/06/25 22:48 02/06/25 23:00 Temperature 98.8 F Temperature Source Tympanic Pulse Rate 80 79 Pulse Rate [Radial] 115 H Respiratory Rate 14 18 14 Blood Pressure 207/107 H 211/102 H Blood Pressure [Right Arm] 238/117 H Blood Pressure Mean [Right Arm] 157 Blood Pressure Position Sitting Sitting Blood Pressure Position [Right Arm] Sitting 02 Sat by Pulse Oximetry 96 97 98 Oxygen Delivery Method Room Air Room Air Room Air 02/06/25 23:30 02/07/25 01:27 02/07/25 01:41 Temperature 98.8 F Temperature Source Pulse Rate 80 82 Pulse Rate [Radial] Respiratory Rate 16 Blood Pressure 207/107 H 189/101 H Blood Pressure [Right Arm] Blood Pressure Mean [Right Arm] Blood Pressure Position Sitting Sitting Blood Pressure Position [Right Arm] 02 Sat by Pulse Oximetry 96 Oxygen Delivery Method Room Air Room Air Room Air Lab Data Lab results reviewed: Yes I reviewed the patient's lab results. Lab Results 02/06/25 22:45: WBC 11.8 H, RBC 5.96, Hgb 17.6, Hct 52.1 H, MCV 87.4, MCH 29.5, MCHC 33.8, RDW 12.7, Plt Count 262, MPV 10.3, Neut % (Auto) 73.7, Lymph % (Auto) 17.8, Gregg % (Auto) 6.1, Eos % (Auto) 1.4, Baso % (Auto) 0.5, Neut # (Auto) 8.7 H, Lymph # (Auto) 2.1, Gregg # (Auto) 0.7, Eos # (Auto) 0.2, Baso # (Auto) 0.1, S odium 135 L, Potassium 4.0, Chloride 98, Carbon Dioxide 27, Anion Gap 14.0, BUN 16, Creatinine 1.10, Estimated Creat Clear 73, Estimated GFR 65, Est GFR ( Amer) 79, Glucose 220 H, Calcium 9.7, Phosphorus 3.4, Magnesium 1.6, T otal Bilirubin 1.4 H, AST 33, ALT 26, Alkaline Phosphatase 104, Total Protein 8.0 D, Albumin 5.0, Globulin 3.0, Albumin/Globulin Ratio 1.7, TSH 5.22 H, Thyroxine (T4) 9.6 02/06/25 23:32: SARS-CoV-2 (PCR) Not detected, Influenza A Untype (PCR) Not detected, Influenza Type B (PCR) Not detected 02/06/25 22:45 02/06/25 22:45 Orders (Tests/Meds): ED MEDICATIONS Generic Name Dose Route Start Last Admin Trade Name Freq PRN Reason Stop Dose Admin Acetaminophen 650 mg 02/07/25 01:21 02/07/25 02:32 Acetaminophen 325mg Tab PO 03/09/25 01:20 650 mg Q4HP PRN Administration Fever or Mild Pain (1-3) Enoxaparin Sodium 40 mg 02/07/25 09:00 Enoxaparin 40mg/0.4ml Syringe SUBCUT 03/09/25 08:59 DAILY ODALYS Magnesium Sulfate 2 gm in 50 mls @ 50 mls/hr 02/07/25 02:00 02/07/25 03:40 Magnesium Sulfate 2gm/50ml Premix IV 02/07/25 03:59 50 mls/hr Q1H ODALYS Administration Insulin Human Lispro 0 unit 02/07/25 06:00 Humalog 100 Units/Ml 10ml Vial (Ssi) SUBCUT 03/09/25 05:59 ACHS ODALYS Protocol Ondansetron HCl 4 mg 02/07/25 01:21 Ondansetron 4mg/2ml Vial IV 03/09/25 01:20 Q8HP PRN Nausea Discontinued Medications Generic Name Dose Route Start Last Admin Trade Name Freq PRN Reason Stop Dose Admin Iopamidol 80 ml 02/07/25 00:02 02/07/25 00:03 Iopamidol-370 (76%);100ml Bottle IV 02/07/25 00:03 80 ml ONCE ONE Administration Sodium Chloride 50 ml 02/07/25 00:02 02/07/25 00:04 0.9 % Sodium Chloride 50 Ml Vial IV 02/07/25 00:03 50 ml ONCE ONE Administration Sodium Chloride 10 ml 02/07/25 00:02 02/07/25 00:04 Sodium Chloride 0.9% 10ml Syr (Rad Only) IV 02/07/25 00:03 10 ml ONCE ONE Administration ORDERS Category Date Time Status CT angio head Stat Cat Scan 02/06/25 23:[address] angio neck Stat Cat Scan 02/06/25 23:[address] head/brain wo con Stat Cat Scan 02/06/25 23:15 Completed CXR --portable [XR chest portable] Stat Exams 02/06/25 23:15 Completed CBC w/Auto Diff [Complete Blood Count Auto Diff] Stat Lab 02/06/25 22:45 Completed CMP [Comprehensive Metabolic Panel] Stat Lab 02/06/25 22:45 Completed Complete Blood Count Auto Diff AMLAB Lab 02/07/25 06:00 Ordered Comprehensive Metabolic Panel AMLAB Lab 02/07/25 06:00 Ordered Magnesium AMLAB Lab 02/07/25 06:00 Ordered Magnesium Stat Lab 02/06/25 22:45 Completed Phosphorous Stat Lab 02/06/25 22:45 Completed Rapid PCR Covid and Flu A/B Stat Lab 02/06/25 23:32 Completed T4 (Thyroxine) Stat Lab 02/06/25 22:45 Completed TSH [Thyroid Stimulating Hormone] Stat Lab 02/06/25 22:45 Completed UA [Urinalysis and Microscopic] Stat Lab 02/06/25 23:17 Ordered UDS [Drug Screen,Urine] Stat Lab 02/06/25 23:16 Ordered Medical Decision Narrative: 74-year-old male with history of coronary disease diabetes hypertension hyperlipidemia presents with abnormal speech pattern and more confusion. Has been happening over the last weeks to 1 month, was acutely worse today when family spoke with him. History was obtained via interactive discussion with patient, family, chart review. On arrival, patient is [afebrile, hemodynamically stable, satting appropriately, alert, oriented x4, GCS 15], moving all extremities spontaneously. Full physical exam performed and significant for no focal neurologic deficits on exam, patient does have some issues with speech fluency and word finding Differential includes but is not limited to stroke, dementia, electrolyte derangement, infection. Workup initiated including CT head CTA head neck and broad-spectrum laboratory analysis. On re-evaluation, patient [remains afebrile, HD stable.] Laboratory workup independently interpreted by me and significant for mild leukocytosis, no significant electrolyte derangement, minimally elevated TSH, negative COVID flu swab. Imaging independently interpreted by me and CT head shows no evidence of acute ischemic stroke or hemorrhage. Does show periventricular white matter changes and lacunar infarct on the right. CTAs with significant for atherosclerotic disease without hemodynamically significant stenosis. See radiology read for full review of final results. Thrombolytics were considered but deemed unnecessary given patient is far outside of the window for invention. Transfer for stroke evaluation was considered but deemed unnecessary given patient does not have an intervenable stroke syndrome. Given patient history, exam and workup, patient's presentation most likely represents possible subacute stroke. Interactive discussion was had with patient and family regarding his presentation. Interactive discussion was had with hospitalist on-call for admission for MRI evaluation. Procedures Risk/Benefits of Procedure(s) Were Explained: Yes Critical Care Critical Care Time Critical Care Time: Yes Attestation: On 02/06/25, the high probability of a clinically significant, sudden or life threatening deterioration of the following system(s) required my full and direct attention, intervention and personal management. The time I documented below is in addition to time spent performing reported procedures but includes the following listed in this critical care notation. Total Time Total Critical Care Time: 40
[2025-02-06 23:23] LABS: Basophils # 0.1 K/mm3 (0-0.2); Basophils % 0.5 % (0.1-2.0); Eosinophils # 0.2 K/mm3 (0.0-0.4); Eosinophils % 1.4 % (0.1-12.0); Hematocrit 52.1 % (42.0-52.0); Hemoglobin 17.6 g/dL (14.1-18.0); Lymphocytes # 2.1 K/mm3 (0.7-4.5); Lymphocytes % 17.8 % (10-50); Mean Corpuscular HGB Conc 33.8 g/dL (31.8-35.4); Mean Corpuscular Hemoglobin 29.5 pg (27.0-31.2); Mean Corpuscular Volume 87.4 fl (80-94); Mean Platelet Volume 10.3 fl (7.4-10.4); Monocytes # 0.7 K/mm3 (0.1-1.0); Monocytes % 6.1 % (1.7-9.3); Neutrophils # 8.7 K/mm3 (1.8-7.8); Neutrophils % 73.7 % (37.0-80.0); Platelet Count 262 K/mm3 (142-424); Red Blood Count 5.96 M/mm3 (4.60-6.20); Red Cell Distribution Width 12.7 % (11.5-17.5); White Blood Count 11.8 K/mm3 (4.8-10.8)
[2025-02-06 23:28] LABS: Chloride 98 mmol/L (98-107); Sodium 135 mmol/L (136-145)
[2025-02-06 23:30] VITALS: BP 207/107; PULSE 80; O2SAT 96
[2025-02-06 23:31] LABS: Alanine Aminotransferase 26 U/L (12-78); Aspartate Amino Transferase 33 U/L (17-59); Blood Urea Nitrogen 16 mg/dl (9-20); Carbon Dioxide 27 mmol/L (22.0-30.0); Creatinine Clearance Estimated 73 mL/min (50-200); Estimated Glomerular Filt Rate 65 ml/min (>60); GFR (African American) 79 ML/MIN (>60)
[2025-02-06 23:32] LABS: Albumin/Globulin Ratio 1.7 (1.1-1.8); Alkaline Phosphatase 104 U/L (38-126); Bilirubin,Total 1.4 mg/dl (0.2-1.3); Calcium 9.7 mg/dl (8.4-10.2); Glucose 220 mg/dl (74-100); Magnesium 1.6 mg/dl (1.6-2.3); Phosphorous 3.4 mg/dl (2.5-4.5)
[2025-02-06 23:37] LABS: Coronavirus 19, PCR Not Detected (NotDetected); Influenza A, PCR Not Detected (NotDetected); Influenza B, PCR Not Detected (NotDetected)
[2025-02-06 23:50] LABS: T4 (Thyroxine) 9.6 ug/dl (5.53-11.0)
[2025-02-07 00:03] LABS: Thyroid Stimulating Hormone 5.22 uIU/mL (0.465-4.68)
[2025-02-07] MEDS: IOPAMIDOL-370 (76%);100ML BOTTLE 80 ML IV (00:03)
[2025-02-07] MEDS: 0.9 % SODIUM CHLORIDE 50 ML VIAL IV (00:04)
[2025-02-07] MEDS: SODIUM CHLORIDE 0.9% 10ML SYR (RAD ONLY) 10 ML IV (00:04)
--- NOTE | 2025-02-07 01:35 | P.HP_ITS ---
<Statement entered by Gary Godfrey MD - 02/07/25 23:19> Rounded on patient after nurse practitioner. Personally examined and interviewed patient. Agree with exam findings and care plan as documented. History of Present Illness *Admission Date: 02/07/25 *Reason for visit:: Altered mental state worsening memory *History of present illness: The patient is accompanied by his daughters. Been given a history to the emergency room physician that the patient is always had kind of poor memory. But daughter sees that there has been significant change just over the past week or 2. . In the ER noted was that the patient presented with slurred speech and trouble speaking, form of aphasia. With increased confusion also per the family noting that the fast was negative at the time of triage. Patient is noted for cardiac history of stenosis with stenting., ,Also diabetes mellitu and per office notes and acute kidney injury in the past . Also noted for hip replacement Presently the daughters are in the room. I have examined the patient. In the ER provider [facility] Disclaimer: The information contained in this section may have been updated after the patient was seen, as this information can be updated by other users. Medical History (Updated 02/07/25 @ 01:57 by Jacob Don APRN) Coronary artery disease Carotid artery stenosis Gastroesophageal reflux disease Sleep apnea Diabetes mellitus HLD (hyperlipidemia) HTN (hypertension) CAD (coronary artery disease) Surgical History (Updated 02/07/25 @ 01:57 by Jacob Don APRN) Knee joint replacement status Hx of CABG H/O heart artery stent History of surgery on arm History of hip replacement Family History Sister Cancer Coronary artery disease Diabetes Brother Cancer Coronary artery disease Diabetes Father Diabetes Social History (Updated 02/07/25 @ 02:21 by Agnes Jack RN) Smoking Status: Never smoker second hand exposure: No alcohol intake: never substance use type: denies use current occupational status: employed Travel in the last 8 weeks: None household members: children housing: house current occupational exposures/hazards: No caffeine: Yes Have you lived/traveled outside [place] in past 30 days?: No Contact w/someone who lives/traveled outside US past 30 days?: No Exposure to someone with infectious disease in past 14 days?: No Do you have a fever (greater than 100.4 F or 38 C)?: No Have you tested positive for COVID-19: No Exposed to someone with COVID-19 in past 14 days?: No Do you have a sore throat?: No Do you have a cough?: No Do you have any weakness?: No Are you experiencing any nausea/vomitting?: No Do you have any diarrhea?: No Are you experiencing any unusual bleeding?: No Do you have any muscle aches/pain?: No Do you have any abdominal pain?: No Are you experiencing loss of taste or smell?: No Other Medical History Have you received the Flu Vaccine for this season: No Have you received the Pneumonia Vaccine: Yes Review of Systems Review of Systems Review of systems:: pertinent systems reviewed and negative unless documented below Review of systems (narrative): Patient is awake appears to be quite alert, talking to me during the exam giving me history. Also noting both daughters in room giving me history also Constitutional Constitutional: Reports as per HPI Eyes Eyes: Reports as per HPI ENT Ears, Nose, Mouth, and Throat: Reports as per HPI *Cardiovascular Cardiovascular: Reports as per HPI *Respiratory Respiratory: Reports as per HPI *Gastrointestinal Gastrointestinal: Reports as per HPI *Genitourinary Genitourinary: Reports as per HPI *Musculoskeletal Musculoskeletal: Reports as per HPI Integumentary/Breasts Skin/Breast: Reports as per HPI *Neurologic Neurologic: Reports as per HPI Psychiatric Psychiatric: Reports as per HPI Endocrine Endocrine: Reports as per HPI Hematologic/Lymphatic Hematologic/Lymphatic: Reports as per HPI Allergic/Immunologic Allergic/Immunologic: Reports as per HPI Meds Home Medications and Allergies Home Medications ?Medication ?Instructions ?Recorded ?Confirmed ?Type aspirin 81 mg chewable tablet 81 mg PO DAILY 09/15/24 02/07/25 History terazosin 5 mg capsule 5 mg PO DAILY 09/15/24 02/07/25 History ezetimibe 10 mg tablet See Rx Instructions .Route 12/05/24 02/07/25 Rx .COMPLEX #90 tabs carvedilol 12.5 mg tablet 12.5 mg PO DAILY 90 days #90 tabs 01/02/25 02/07/25 Rx omeprazole 40 mg capsule,delayed See Rx Instructions .Route 01/02/25 02/07/25 Rx release .COMPLEX #90 caps New Prescriptions to Start Prescriptions: Allergies Allergy/AdvReac Type Severity Reaction Status Date / Time amlodipine (From Norvasc) Allergy Unknown Unknown Verified 09/21/24 12:42 allergy reaction losartan Allergy Unknown Unknown Verified 09/21/24 12:42 allergy reaction pravastatin AdvReac Mild nausea Verified 09/21/24 12:42 fentanyl AdvReac Verified 09/21/24 12:42 midazolam (From [place]) AdvReac Verified 09/21/24 12:42 Exam Data for Last 24 hours Vital signs and Labs for Last 24 Hours: Temp Pulse Resp BP Pulse Ox O2 Del Method 98.8 F 80 14 207/107 H 96 Room Air 02/06/25 22:48 02/06/25 23:30 02/06/25 23:00 02/06/25 23:30 02/06/25 23:30 02/06/25 23:30 Laboratory Results - last 24 hr 02/06/25 22:45: WBC 11.8 H, RBC 5.96, Hgb 17.6, Hct 52.1 H, MCV 87.4, MCH 29.5, MCHC 33.8, RDW 12.7, Plt Count 262, MPV 10.3, Neut % (Auto) 73.7, Lymph % (Auto) 17.8, [place] % (Auto) 6.1, Eos % (Auto) 1.4, Baso % (Auto) 0.5, Neut # (Auto) 8.7 H, Lymph # (Auto) 2.1, [place] # (Auto) 0.7, Eos # (Auto) 0.2, Baso # (Auto) 0.1, Sodium 135 L, Potassium 4.0, Chloride 98, Carbon Dioxide 27, Anion Gap 14.0, BUN 16, Creatinine 1.10, Estimated Creat Clear 73, Estimated GFR 65, Est GFR ( Amer) 79, Glucose 220 H, Calcium 9.7, Phosphorus 3.4, Magnesium 1.6, Total Bilirubin 1.4 H, AST 33, ALT 26, Alkaline Phosphatase 104, Total Protein 8.0 D, Albumin 5.0, Globulin 3.0, Albumin/Globulin Ratio 1.7, TSH 5.22 H, Thyroxine (T4) 9.6 02/06/25 23:32: SARS-CoV-2 (PCR) Not detected, Influenza A Untype (PCR) Not detected, Influenza Type B (PCR) Not detected I & O for Last 24 hours: Intake & Output 02/04/25 02/05/25 02/06/25 02/07/25 05:59 05:59 05:59 05:59 Weight 200 lb Radiology Reports for the Last 24 Hours: Chest x-ray no acute findings. CT scan of carotids no significant stenosis CT scan of the head showed no hemorrhage some calcification with generalized atrophy some small vessel changes but a lacunar infarct Constitutional Constitutional: no acute distress, thin and cooperative Comments: Patient was quite cooperative answer questions well he appeared that he knew exactly what he was talking about and where he was. Gave good history of knee and hip surgery also he is had cardiac surgery *Routine HEENT Exam Head: Present normocephalic and atraumatic Eye: Present EOMI, PERRL and normal accommodation; Absent scleral injection ENT: Present mucous membranes moist and oropharynx clear Comments: No signs of injury or infection to the face , throat , pharynx *Routine Neck Exam Neck: Present supple, full ROM and trachea midline Routine Chest/Breast/Axilla Exam Comments: Examination of chest upper back found no sign of injury bruising are abnormalities *Routine Respiratory Exam Respiratory: Present CTA bilaterally, normal respiratory effort, able to speak in complete sentences and symmetric chest movement Comments: Lungs were clear throughout all lung babin *Routine Cardiovascular Exam Cardiovascular: Present RRR, Normal S1, Normal S2 and murmur Comments: Light murmur nothing special. Noting brisk capillary refill to both nail beds of hands and feet there was no edema in the lower extremities *Routine Abdominal Exam Abdominal: Present soft Comments: No tenderness on abdominal exam patient able to sit up without assistance *Routine Rectal Exam Rectal:: deferred *Routine Genitalia Exam Genitalia:: deferred *Routine Extremities Exam Extremities: Present normal capillary refill Comments: I did not stand the patient or walk him but he moves his arms and legs very well and told me that he can stand and walk without difficulty, he did noticed that he had fallen once before he was not, Routine Back/Spine/Pelvis Exam Back/Spine: Present full ROM Comments: Examination of the back found no injury or deficit that was noticeable. Patient was able to sit up move and twist without any difficulty *Routine Skin Exam Skin: Present intact, dry, warm and normal turgor Comments: Skin color was normal *Routine Neurological Exam Neurological: Present alert, oriented X3, CN II-XII intact, normal tone, vision grossly intact and hearing grossly intact Routine Psychiatric Exam Psychiatric: Present normal affect, normal thought process, cooperative, good insight and good judgment Comments: At this point in time just meeting the man I cannot find anything that tells me he has significant memory or mental issues H&P: Result Impressions 1. Decreased memory question new versus old stroke with normal changes of age. Imaging and Cardiology CT scan - head: Additional comments: Noting that reviewed the written report and the images of the patient's head. 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: Status: Acute Category: Medical Code(s): I69.911 - Memory deficit following unspecified cerebrovascular disease (3) Diabetes mellitus: Status: Chronic Qualifiers: Diabetes mellitus complication status: without complication Diabetes mellitus halfway insulin use: without halfway use Diabetes mellitus type: type 2 Qualified Code(s): E11.9 - Type 2 diabetes mellitus without complications Category: Medical Code(s): E11.9 - Type 2 diabetes mellitus without complications (4) Hyperglycemia: Status: Acute Category: Medical Code(s): R73.9 - Hyperglycemia, unspecified (5) Coronary artery disease: Status: Acute Qualifiers: Associated angina: without angina Coronary Disease-Associated Artery/Lesion type: unspecified vessel or lesion type [place] vs. transplanted heart: [place] heart Qualified Code(s): I25.10 - Atherosclerotic heart disease of [place] coronary artery without angina pectoris Category: Medical Code(s): I25.10 - Atherosclerotic heart disease of [place] coronary artery without angina pectoris Plan 1. Patient will be admitted to the floor question as to an MRI in the a.m., Need to determine which imaging would be appropriate with the patient's history of acute kidney injury in the past as to if contrast is beneficial to rule out small vessel disease. Depending on findings question to be able to refer to neurology to provide then assessment of the right medications to prevent any other strokes.. 2. Still waiting on urinalysis at this time. See no signs of infection that should be causing a acute event as far as memory change., Electrolytes blood sugars are not at a level that should be causing him any difficulty but will continue to monitor
[2025-02-07 01:41] VITALS: BP 189/101; PULSE 82; RESP 16; TEMP 37.1; O2SAT 97
--- NOTE | 2025-02-07 02:02 | PC.NURSE ---
Arrived to the floor at 0200 via wheelchair
[2025-02-07 02:20] VITALS: BP 178/110; PULSE 83; RESP 18; TEMP 36.9; O2SAT 96; BMI 29.4
[2025-02-07] MEDS: MAGNESIUM SULFATE IN WATER 2 GM/50 ML PIGGYBACK IV ×2 (02:32→03:40)
[2025-02-07] MEDS: ACETAMINOPHEN 325MG TAB 650 MG PO (02:32)
[2025-02-07 04:00] VITALS: BP 170/79; PULSE 79; RESP 18; TEMP 36.6; O2SAT 97; BMI 29.4
--- NOTE | 2025-02-07 04:08 | PC.NURSE ---
Pt was A&Ox4 upon admission and answered all orientation questions correctly, however pt has trouble forming sentences at times and is slow to answer. Pt did not know what medications he was on. pt daughters were able to fill in any blanks and assist with pt med rec. Pt c/o CUELLAR and was treated per JAN. Pt BP remains elevated with an admission BP of 178/110, Cesario Don APRN aware. Pt did recieve x2 doses of magnesium per protocol for a level of 1.6.
[2025-02-07] MEDS: humaLOG 100 UNITS/ML 10ML VIAL (SSI) SUBCUT (05:20)
[2025-02-07 07:11] LABS: Basophils % 0.4 % (0.1-2.0); Eosinophils # 0.1 K/mm3 (0.0-0.4); Eosinophils % 0.6 % (0.1-12.0); Hematocrit 42.5 % (42.0-52.0); Lymphocytes # 1.8 K/mm3 (0.7-4.5); Lymphocytes % 18.4 % (10-50); Mean Corpuscular HGB Conc 34.1 g/dL (31.8-35.4); Mean Corpuscular Hemoglobin 29.5 pg (27.0-31.2); Mean Corpuscular Volume 86.4 fl (80-94); Mean Platelet Volume 10.4 fl (7.4-10.4); Monocytes # 0.8 K/mm3 (0.1-1.0); Neutrophils # 7.2 K/mm3 (1.8-7.8); Neutrophils % 72.2 % (37.0-80.0); Platelet Count 223 K/mm3 (142-424); Red Blood Count 4.92 M/mm3 (4.60-6.20); Red Cell Distribution Width 12.6 % (11.5-17.5); White Blood Count 9.9 K/mm3 (4.8-10.8)
[2025-02-07 07:21] LABS: Hemoglobin 14.6 g/dL (14.1-18.0)
[2025-02-07 07:24] LABS: Alanine Aminotransferase 21 U/L (12-78); Albumin Level 3.9 g/dl (3.5-5.0); Albumin/Globulin Ratio 1.8 (1.1-1.8); Alkaline Phosphatase 81 U/L (38-126); Anion Gap 9.6 mEq/L (5-15); Aspartate Amino Transferase 23 U/L (17-59); Bilirubin,Total 1.3 mg/dl (0.2-1.3); Blood Urea Nitrogen 15 mg/dl (9-20); Calcium 8.7 mg/dl (8.4-10.2); Carbon Dioxide 23 mmol/L (22.0-30.0); Chloride 100 mmol/L (98-107); Creatinine Clearance Estimated 80 mL/min (50-200); Estimated Glomerular Filt Rate 82 ml/min (>60); GFR (African American) 99 ML/MIN (>60); Globulin 2.2 g/dL (1.3-3.2); Glucose 192 mg/dl (74-100); Magnesium 2.6 mg/dl (1.6-2.3); Potassium 3.6 mmoL/L (3.5-5.1); Sodium 129 mmol/L (136-145); Total Protein,Serum 6.1 g/dl (6.3-8.2)
[2025-02-07 08:00] VITALS: BP 133/72; PULSE 63; RESP 16; TEMP 36.8; O2SAT 96
[2025-02-07] MEDS: ENOXAPARIN 40MG/0.4ML SYRINGE 40 MG SUBCUT (08:06)
--- NOTE | 2025-02-07 08:10 | MR_ITS ---
FINAL REPORT TECHNIQUE: Multiplanar MR without contrast CLINICAL HISTORY: STROKE LIKE SYMPTOMS, SPEECH DEFICITS COMPARISON: CT of head 02/07/2025 FINDINGS: Diffusion sequences show no signal abnormality to indicate acute infarct. Scattered periventricular white matter signal changes are seen compatible with moderate chronic ischemic gliotic disease. Moderate generalized atrophy is present. There is a chronic lacunar infarct in the right basal ganglia primarily involving the caudate. No mass, hemorrhage or edema is seen. Ventricles are normal. Major vascular flow voids are intact. IMPRESSION: 1. No mass, acute infarct or hydrocephalus 2. Moderate atrophy and chronic ischemic white matter changes, with a chronic lacunar infarct primarily involving the right caudate. Reviewed, Interpreted and Dictated by Germain Nguyen MD Transcribed by Anjelica Stallworth Authenticated and [facility]
[2025-02-07 08:44] LABS: Hemoglobin A1C 9.6 % (4.0-6.0)
--- NOTE | 2025-02-07 09:47 | HMH.PHAINT1 ---
Pharmacy Intervention Comments: MEDICATION RECONCILIATION COMPLETED ON PATIENT USING EXTERNAL FILL HISTORY FROM PHARMACY. -MEERA SAL, EDUD
--- NOTE | 2025-02-07 09:55 | EXP.DC.SUM ---
General Admission date:: 02/07/25 Discharge date: 02/07/25 HPI HPI HPI: The patient is accompanied by his daughters. Been given a history to the emergency room physician that the patient is always had kind of poor memory. But daughter sees that there has been significant change just over the past week or 2. In the ER noted was that the patient presented with slurred speech and trouble speaking, form of aphasia. With increased confusion also per the family noting that the fast was negative at the time of triage. Patient is noted for cardiac history of stenosis with stenting., ,Also diabetes mellitu and per office notes and acute kidney injury in the past . Also noted for hip replacement Presently the daughters are in the room. Hospital Course Hospital Course Hospital Course: 74-year-old male admitted for concern for stroke. Workup in the ER was initiated with CT head and CTA head and neck. Lab workup with mild leukocytosis but otherwise no actionable labs. Imaging with no evidence of acute ischemic stroke or hemorrhage. Has some periventricular white matter changes and lacunar infarct on the right that are old. Was monitored overnight. MRI obtained with the following findings: MRI Head IMPRESSION: 1. No mass, acute infarct or hydrocephalus 2. Moderate atrophy and chronic ischemic white matter changes, with a chronic lacunar infarct primarily involving the right caudate. In light of imaging findings and no acute stroke, stable to discharge home. Had improvement in neurologic exam. Discharged with family. Of note, patient's diabetes is poorly controlled, A1c 9.6. Recommend continuing glimepiride 4 mg daily and Lantus 10 units daily. May need further adjustments as an outpatient. Close follow-up with PCP for further management and adjustment. In regard to his CAD and heart failure continue aspirin 81 mg daily, Lipitor for Gram stain, carvedilol 12.5 mg daily, Plavix 75 mg daily. Continue terazosin 10 mg daily for BPH Urinalysis with no acute UTI. Exam Data for Last 24 hours Vital signs and Labs for Last 24 Hours: Temp Pulse Resp BP Pulse Ox O2 Del Method 98.3 F 63 16 133/72 96 Room Air 02/07/25 08:00 02/07/25 08:00 02/07/25 08:00 02/07/25 08:00 02/07/25 08:00 02/07/25 08:00 Laboratory Results - last 24 hr 02/06/25 22:45: WBC 11.8 H, RBC 5.96, Hgb 17.6, Hct 52.1 H, MCV 87.4, MCH 29.5, MCHC 33.8, RDW 12.7, Plt Count 262, MPV 10.3, Neut % (Auto) 73.7, Lymph % (Auto) 17.8, [place] % (Auto) 6.1, Eos % (Auto) 1.4, Baso % (Auto) 0.5, Neut # (Auto) 8.7 H, Lymph # (Auto) 2.1, [place] # (Auto) 0.7, Eos # (Auto) 0.2, Baso # (Auto) 0.1, Sodium 135 L, Potassium 4.0, Chloride 98, Carbon Dioxide 27, Anion Gap 14.0, BUN 16, Creatinine 1.10, Estimated Creat Clear 73, Estimated GFR 65, Est GFR ( Amer) 79, Glucose 220 H, Calcium 9.7, Phosphorus 3.4, Magnesium 1.6, Total Bilirubin 1.4 H, AST 33, ALT 26, Alkaline Phosphatase 104, Total Protein 8.0 D, Albumin 5.0, Globulin 3.0, Albumin/Globulin Ratio 1.7, TSH 5.22 H, Thyroxine (T4) 9.6 02/06/25 23:32: SARS-CoV-2 (PCR) Not detected, Influenza A Untype (PCR) Not detected, Influenza Type B (PCR) Not detected 02/07/25 06:29: WBC 9.9, RBC 4.92, Hgb 14.6 D, Hct 42.5, MCV 86.4, MCH 29.5, MCHC 34.1, RDW 12.6, Plt Count 223, MPV 10.4, Neut % (Auto) 72.2, Lymph % (Auto) 18.4, [place] % (Auto) 8.0, Eos % (Auto) 0.6, Baso % (Auto) 0.4, Neut # (Auto) 7.2, Lymph # (Auto) 1.8, [place] # (Auto) 0.8, Eos # (Auto) 0.1, Baso # (Auto) 0.0, Sodium 129 L, Potassium 3.6, Chloride 100, Carbon Dioxide 23, Anion Gap 9.6, BUN 15, Creatinine 0.90, Estimated Creat Clear 80, Estimated GFR 82, Est GFR ( Amer) 99 D, Glucose 192 H, Hemoglobin A1c 9.6 H, Calcium 8.7, Magnesium 2.6 H D, Total Bilirubin 1.3, AST 23 D, ALT 21, Alkaline Phosphatase 81, Total Protein 6.1 L, Albumin 3.9 D, Globulin 2.2, Albumin/Globulin Ratio 1.8 I & O for Last 24 hours: Intake & Output 02/04/25 02/05/25 02/06/25 02/07/25 23:59 23:59 23:59 23:59 Intake Total 240 / 240 Balance 240 / 240 Weight 90.718 kg 90.174 kg Constitutional Constitutional: no acute distress, average body habitus and cooperative *Routine HEENT Exam Head: Present normocephalic Eye: Present EOMI and PERRL ENT: Present mucous membranes moist *Routine Neck Exam Neck: Present supple; Absent lymphadenopathy *Routine Respiratory Exam Respiratory: Present CTA bilaterally; Absent rhonchi, wheezes or crackles *Routine Cardiovascular Exam Cardiovascular: Present RRR *Routine Abdominal Exam Abdominal: Present soft and normoactive bowel sounds; Absent tenderness *Routine Rectal Exam Patient deferred: visual exam *Routine Exam Patient deferred: penile exam *Routine Extremities Exam Extremities: Absent cyanosis, clubbing or edema *Routine Skin Exam Skin: Present warm and ecchymosis; Absent rash *Routine Neurological Exam Neurological: Present alert, oriented X3, CN II-XII intact and moving all extremities; Absent altered mental status Results Data Completed and Pending Labs on day of discharge: Labs from last 24 hours 02/07/25 02/06/25 02/06/25 06:29 23:32 22:45 WBC 9.9 11.8 H RBC 4.92 5.96 Hgb 14.6 D 17.6 Hct 42.5 52.1 H MCV 86.4 87.4 MCH 29.5 29.5 MCHC 34.1 33.8 RDW 12.6 12.7 Plt Count 223 262 MPV 10.4 10.3 Neut % (Auto) 72.2 73.7 Lymph % (Auto) 18.4 17.8 [place] % (Auto) 8.0 6.1 Eos % (Auto) 0.6 1.4 Baso % (Auto) 0.4 0.5 Neut # (Auto) 7.2 8.7 H Lymph # (Auto) 1.8 2.1 [place] # (Auto) 0.8 0.7 Eos # (Auto) 0.1 0.2 Baso # (Auto) 0.0 0.1 Sodium 129 L 135 L Potassium 3.6 4.0 Chloride 100 98 Carbon Dioxide 23 27 Anion Gap 9.6 14.0 BUN 15 16 Creatinine 0.90 1.10 Estimated Creat Clear 80 73 Estimated GFR 82 65 Est GFR ( Amer) 99 D 79 Glucose 192 H 220 H Hemoglobin A1c 9.6 H Calcium 8.7 9.7 Phosphorus 3.4 Magnesium 2.6 H D 1.6 Total Bilirubin 1.3 1.4 H AST 23 D 33 ALT 21 26 Alkaline Phosphatase 81 104 Total Protein 6.1 L 8.0 D Albumin 3.9 D 5.0 Globulin 2.2 3.0 Albumin/Globulin Ratio 1.8 1.7 TSH 5.22 H Thyroxine (T4) 9.6 SARS-CoV-2 (PCR) Not detected Influenza A Untype (PCR) Not detected Influenza Type B (PCR) Not detected DS: Diagnosis Discharge Diagnosis (1) Stroke-like symptoms: Status: Acute Code(s): R29.90 - Unspecified symptoms and signs involving the nervous system (2) 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: Status: Acute Code(s): I69.911 - Memory deficit following unspecified cerebrovascular disease (3) Diabetes mellitus: Status: Chronic Code(s): E11.9 - Type 2 diabetes mellitus without complications Qualifiers: Diabetes mellitus complication status: without complication 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 transplanted heart: [place] heart Qualified Code(s): I25.10 - Atherosclerotic heart disease of [place] coronary artery without angina pectoris (6) Right-sided lacunar infarction: Status: Chronic Code(s): I63.81 - Other cerebral infarction due to occlusion or stenosis of small artery Meds Home Medications and Allergies Home Medications ?Medication ?Instructions ?Recorded ?Confirmed ?Type aspirin 81 mg chewable tablet 81 mg PO DAILY 09/15/24 02/07/25 History terazosin 5 mg capsule 10 mg PO DAILY 09/15/24 02/07/25 History carvedilol 12.5 mg tablet 12.5 mg PO DAILY 90 days #90 tabs 01/02/25 02/07/25 Rx atorvastatin 40 mg tablet 40 mg PO HS 30 days #30 tabs 02/07/25 Rx clopidogrel 75 mg tablet 75 mg PO DAILY 02/07/25 02/07/25 History ezetimibe 10 mg tablet 10 mg PO DAILY 02/07/25 02/07/25 History glimepiride 4 mg tablet 4 mg PO DAILY 02/07/25 02/07/25 History insulin glargine 100 unit/mL (3 10 unit (0.1 mL) SQ DAILY 30 days 02/07/25 Rx mL) subcutaneous pen (Lantus #3 mL Solostar U-100 Insulin) omeprazole 40 mg capsule,delayed 40 mg PO DAILY 02/07/25 02/07/25 History release pen needle, diabetic 30 gauge x #120 ea 02/07/25 Rx 02/05 New Prescriptions to Start Prescriptions: Gary Wiggins insulin glargine [Lantus Solostar U-100 Insulin] Gary Godfrey pen needle, diabetic Gary Godfrey Allergies Allergy/AdvReac Type Severity Reaction Status Date / Time amlodipine (From [facility]) Allergy Unknown Unknown Verified 09/21/24 12:42 allergy reaction losartan Allergy Unknown Unknown Verified 09/21/24 12:42 allergy reaction pravastatin AdvReac Mild nausea Verified 09/21/24 12:42 fentanyl AdvReac Verified 09/21/24 12:42 midazolam (From Versed) AdvReac Verified 09/21/24 12:42 Discharge Plan Disposition Patient Disposition: Home, Self-Care Condition: Fair Follow up Plan Follow up with: Herminio Jo MD [Primary Care Provider] - 02/13/25 10:00 am (within a week for diabetes management) Prescriptions/Medication Reconciliation: New atorvastatin 40 mg Tablet 40 mg PO HS 30 Days Qty: 30 0RF insulin glargine [Lantus Solostar U-100 Insulin] 100 unit/mL (3 mL) Insulin Pen 10 unit SQ DAILY 30 Days Qty: 3 0RF (DME) pen needle, diabetic 30 gauge x 3/16 needle See Rx Instructions .ROUTE .MEDSUPPLY Qty: 120 10RF Rx Instructions: As directed Continued carvedilol 12.5 mg tablet 12.5 mg PO DAILY 90 Days Qty: 90 0RF terazosin 5 mg capsule 10 mg PO DAILY Patient Comments: TAKE 2 CAPSULES BY MOUTH DAILY FOR HIGH BLOOD PRESSURE aspirin 81 mg tablet,chewable 81 mg PO DAILY Patient Comments: CHEW AND SWALLOW 1 TABLET BY MOUTH DAILY FOR HEART HEALTH clopidogrel 75 mg tablet 75 mg PO DAILY Patient Comments: TAKE 1 TABLET BY MOUTH DAILY FOR 90 DAYS glimepiride 4 mg tablet 4 mg PO DAILY Patient Comments: TAKE 1 TABLET BY MOUTH DAILY FOR 90 DAYS omeprazole 40 mg capsule,delayed release(DR/EC) 40 mg PO DAILY ezetimibe 10 mg tablet 10 mg PO DAILY Problem Reconciliation Problems Reviewed?: Yes Patient Discharge Instructions ACTIVITY: Continue current activity DIET: continue same diet Patient Instructions: DI for Muscle Weakness Print Language: [place] Providers Primary Care Provider: Herminio Jo Admit Provider: Rafael Huitron Attending Provider: Rafael Huitron
[2025-02-07 10:07] LABS: POC Glucose,Bedside 225 (70-110)
[2025-02-07 10:18] LABS: Microscopic, Urine URINE MICROSCOPIC (MICROSCOPIC)
[2025-02-07] MEDS: INSULIN GLARGINE 100 UNITS/ML 3ML FLEXPEN 10 UNIT SUBCUT (11:01)
[2025-02-07 11:06] LABS: Appearance,Urine Clear (Clear); Color,Urine Yellow (Yellow); Glucose,Urine (UA) 2+ (Negative); Ketones,Urine Small (Negative); PH,Urine 5.5 (5.0-8.5); Protein,Urine 2+ (Negative); Specific Gravity, Urine 1.015 (1.005-1.030)
[2025-02-07 11:07] LABS: Bacteria,Urine Trace /lpf; Bilirubin,Urine Negative (Negative); Blood, Urine Negative (Negative); Leukocyte Esterase,Urine Negative (Negative); Nitrate,Urine Negative (Negative); Squamous Epithelial Cell,Urine Occasional #/hpf (0-5); Urobilinogen,Urine 0.2 EU/dl (0.2); WBC,Urine Occasional #/hpf (0-3)
[2025-02-07 11:15] LABS: POC Glucose,Bedside 227 (70-110)
[2025-02-08 07:23] LABS: Barbiturates Screen,Urine Negative ng/ml (<200); Benzodiazepines Screen,Urine Negative ng/ml (<200)
[2025-02-08 07:24] LABS: Amphetamine/Metha Screen,Urine Negative ng/ml (<1000)
[2025-02-08 07:25] LABS: Cannabinoid Screen,Urine Negative ng/ml (<50); Cocaine Screen,Urine Negative ng/ml (<300)
[2025-02-08 07:26] LABS: Methadone Screen,Urine Negative ng/ml (<300); Opiate Screen,Urine Negative ng/ml (<300)
[2025-02-08 07:27] LABS: Phencyclidine Screen,Urine Negative ng/ml (<25)
--- NOTE | 2025-02-09 11:15 | SW/DCPLANNER ---
Phoned patient x2. Patients phone kept hanging up and wasnt able to leave a voicemail. I tried several times. 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
== END 2025-02-07 14:15 | disposition home or self-care (01) ==
LOC: ER 23:18 → 2ND 02-07 05:28
PROVIDERS: Nurse Practitioner Family; Admitting Provider Student in an Organized Health Care Education/Training Program; Emergency Provider Emergency Medicine; PCP Family Medicine; Visit Provider Student in an Organized Health Care Education/Training Program
DX: I63.239 Cerebral infarction due to unspecified occlusion or stenosis of unspecified carotid artery (principal); R29.90 Unspecified symptoms and signs involving the nervous system; I69.911 Memory deficit following unspecified cerebrovascular disease; I25.10 Atherosclerotic heart disease of native coronary artery without angina pectoris; E11.65 Type 2 diabetes mellitus with hyperglycemia; E78.5 Hyperlipidemia, unspecified; D72.829 Elevated white blood cell count, unspecified; I69.820 Aphasia following other cerebrovascular disease; G47.30 Sleep apnea, unspecified; I63.81 Other cerebral infarction due to occlusion or stenosis of small artery; I11.0 Hypertensive heart disease with heart failure; I50.9 Heart failure, unspecified; K21.9 Gastro-esophageal reflux disease without esophagitis; Z79.82 Long term (current) use of aspirin; Z79.899 Other long term (current) drug therapy; Z88.5 Allergy status to narcotic agent; Z88.8 Allergy status to other drugs, medicaments and biological substances; Z95.1 Presence of aortocoronary bypass graft; Z95.5 Presence of coronary angioplasty implant and graft; Z80.9 Family history of malignant neoplasm, unspecified; Z83.3 Family history of diabetes mellitus; Z82.49 Family history of ischemic heart disease and other diseases of the circulatory system; Z87.448 Personal history of other diseases of urinary system
CPT/HCPCS: 36415; 70450; 70496; 70498; 70551; 71045; 80053; 80307; 81001; 82962; 83036; 83735; 84100; 84436; 84443; 85025; 87636; 99291; G0378; J1650; J3475; Q9967